=== PATIENT | male | born 1970 | race Caucasian/White ===

== ENCOUNTER 2016-02-12 09:10 | Inpatient (IN) | payer OTHER ==
[~2016-02-12] VITALS: Ht 180.3 cm; Wt 77.8 kg
[2016-02-12] VITALS (8 sets, daily range): BP systolic 143–166; BP diastolic 65–89
[2016-02-12 11:54] LABS: EOSINOPHIL (%) 0.9 % (0-5); EOSINOPHIL COUNT 0.1 K/uL (0-0.3); HEMATOCRIT 38.3 % (38.0-50.0); IMMATURE GRANULOCYTE (%) 0.2 % (0.0-0.7); IMMATURE GRANULOCYTE COUNT 0.1 K/uL; LYMPHOCYTE COUNT 1.1 K/uL (1.0-2.8); MCHC 35.5 G/DL (30.0-36.0); MCV 78.8 FL (86-99); MEAN PLAT.VOLUME 11.5 uM^3 (9.0-12.4); MONOCYTE (%) 7.1 % (3-12); MONOCYTE COUNT 0.4 K/uL (0-0.8); NEUTROPHIL (%) 71.7 % (45-76); PLATELET COUNT 175 K/uL (156-360); RBC DIS.WIDTH-CV 12.6 % (11.8-14.6); RBC DIS.WIDTH-SD 35.1 % (39-53); RED BLOOD COUNT 4.86 M/uL (4.00-5.50); WHITE BLOOD COUNT 5.6 K/uL (4.1-10.2)
[2016-02-12 12:03] LABS: PROTHROMBIN TIME 9.8 (9.2-11.2); PTT 24.8 (25-32)
[2016-02-12 12:07] LABS: CHLORIDE 87 mEq/L (99-109); POTASSIUM 5.1 mEq/L (3.7-5.4)
[2016-02-12 12:10] LABS: ANION GAP 11 MEQ/L (2-14)
[2016-02-12 12:13] LABS: GFR ESTIMATE (CALCULATED) 54 mL/min/; TROP-I INTERPRETATION NEGATIVE; TROPONIN-I 0.01 ng/mL (0.0-0.30); UREA NITROGEN (BUN) 22 mg/dL (9-23)
[2016-02-12 12:16] LABS: GLUCOSE 988 mg/dL (70-99)
[2016-02-12 12:17] LABS: SODIUM 119 mEq/L (136-147)
[2016-02-12 14:59] LABS: Estimated Average Glucose 479 mg/dL (70-123)
[2016-02-12 15:01] LABS: HEMOGLOBIN A1c (GLYCOHEMOGLOB) 18.3 % HGB (Below 5.7)
[2016-02-12 16:13] LABS: POINT-OF-CARE METER ID UU13113702; POINT-OF-CARE USER ID LABGLH01
[2016-02-12 16:46] LABS: POINT-OF-CARE METER ID UU13113702; POINT-OF-CARE USER ID LABGLH01
[2016-02-12 17:57] LABS: POINT-OF-CARE METER ID UU13113731
[2016-02-12 18:51] LABS: METH RESISTANT S AUREUS PCR POSITIVE (NEGATIVE)
[2016-02-12 18:52] LABS: PROBE CHECK PASS
[2016-02-12 18:54] LABS: POINT-OF-CARE METER ID UU13113731; POINT-OF-CARE USER ID 609231305
[2016-02-12 19:21] LABS: POINT-OF-CARE METER ID UU13113731
[2016-02-12 19:26] LABS: MAGNESIUM 2.4 mg/dL (1.3-2.7)
[2016-02-12 20:22] LABS: POINT-OF-CARE METER ID UU13113731; POINT-OF-CARE USER ID PHATLC
[2016-02-12 20:33] LABS: ALKALINE PHOSPHATASE 103 IU/L (3-129); ANION GAP 8 MEQ/L (2-14); CHLORIDE 99 MEQ/L (99-109); TOTAL BILIRUBIN 0.4 MG/DL (0.0-1.0); UREA NITROGEN (BUN) 18 mg/dL (9-23)
[2016-02-12 20:45] LABS: GFR ESTIMATE (CALCULATED) > 59 mL/min/; GLUCOSE 113 mg/dL (70-99); POTASSIUM 3.5 MEQ/L (3.7-5.4); SODIUM 135 MEQ/L (136-147)
[2016-02-12 22:07] LABS: POINT-OF-CARE METER ID UU13113731; POINT-OF-CARE USER ID PHATLC
[2016-02-12 22:27] LABS: UR CREATININE CONCENTRATION 18.8 MG/DL
[2016-02-13] VITALS (8 sets, daily range): BP systolic 136–164; BP diastolic 72–88
[2016-02-13 00:42] LABS: POTASSIUM 3.9 mEq/L (3.7-5.4); SODIUM 136 mEq/L (136-147)
[2016-02-13 00:45] LABS: ANION GAP 5 MEQ/L (2-14)
[2016-02-13 00:48] LABS: GFR ESTIMATE (CALCULATED) > 59 mL/min/
[2016-02-13 00:49] LABS: UREA NITROGEN (BUN) 15 mg/dL (9-23)
[2016-02-13 00:50] LABS: CREATINE KINASE 75 IU/L (1-294); TOTAL CK 75 IU/L (1-294)
[2016-02-13 00:53] LABS: TROP-I INTERPRETATION NEGATIVE; TROPONIN-I 0.01 ng/mL (0.0-0.30)
[2016-02-13 00:57] LABS: CK-MB 3.1 ng/mL (0.0-4.9)
[2016-02-13 00:59] LABS: CHLORIDE 105 mEq/L (99-109); GLUCOSE 266 mg/dL (70-99)
[2016-02-13 05:59] LABS: BASOPHIL COUNT 0.1 K/uL (0-0.1); EOSINOPHIL (%) 2.1 % (0-5); EOSINOPHIL COUNT 0.2 K/uL (0-0.3); HEMATOCRIT 38.4 % (38.0-50.0); IMMATURE GRANULOCYTE (%) 0.1 % (0.0-0.7); LYMPHOCYTE COUNT 2.9 K/uL (1.0-2.8); MCH 27.3 PG (29.0-34.0); MCHC 34.1 G/DL (30.0-36.0); MEAN PLAT.VOLUME 11.4 uM^3 (9.0-12.4); MONOCYTE (%) 8.2 % (3-12); MONOCYTE COUNT 0.6 K/uL (0-0.8); NEUTROPHIL (%) 48.1 % (45-76); NEUTROPHIL COUNT 3.4 K/uL (1.8-6.4); PLATELET COUNT 178 K/uL (156-360); RBC DIS.WIDTH-CV 12.7 % (11.8-14.6); RBC DIS.WIDTH-SD 36.8 % (39-53); WHITE BLOOD COUNT 7.1 K/uL (4.1-10.2)
[2016-02-13 06:05] LABS: ALKALINE PHOSPHATASE 87 IU/L (3-129); ANION GAP 11 MEQ/L (2-14); CHLORIDE 104 MEQ/L (99-109); GFR ESTIMATE (CALCULATED) > 59 mL/min/; GLUCOSE 219 mg/dL (70-99); MAGNESIUM 1.8 mg/dl (1.3-2.7); POTASSIUM 4.3 MEQ/L (3.7-5.4); SAMPLE HEMOLYSIS CHECK 0; SAMPLE ICTERIC CHECK 0; SAMPLE LIPEMIA CHECK 0; SODIUM 141 MEQ/L (136-147); UREA NITROGEN (BUN) 13 mg/dL (9-23)
[2016-02-13 06:07] LABS: TOTAL BILIRUBIN 0.5 MG/DL (0.0-1.0)
[2016-02-13 06:17] LABS: TROP-I INTERPRETATION NEGATIVE; TROPONIN-I 0.01 ng/mL (0.0-0.30)
[2016-02-13 06:19] LABS: CREATINE KINASE 56 IU/L (1-294); TOTAL CK 56 IU/L (1-294)
[2016-02-13 07:20] LABS: CK-MB 2.9 ng/mL (0.0-4.9)
[2016-02-13 08:14] LABS: POINT-OF-CARE METER ID UU14149396
[2016-02-13 10:59] LABS: POINT-OF-CARE METER ID UU13113702
[2016-02-13 12:17] LABS: POINT-OF-CARE METER ID UU14149396
[2016-02-13 12:29] LABS: TROP-I INTERPRETATION NEGATIVE; TROPONIN-I < 0.01 ng/mL (0.0-0.30)
[2016-02-13 12:47] LABS: CK-MB 2.6 ng/mL (0.0-4.9)
[2016-02-13 13:20] LABS: ANION GAP 6 MEQ/L (2-14); CHLORIDE 101 MEQ/L (99-109); CREATINE KINASE 57 IU/L (1-294); GFR ESTIMATE (CALCULATED) > 59 mL/min/; GLUCOSE 424 mg/dL (70-99); POTASSIUM 4.6 MEQ/L (3.7-5.4); SAMPLE HEMOLYSIS CHECK 0; SAMPLE ICTERIC CHECK 0; SAMPLE LIPEMIA CHECK 0; SODIUM 131 MEQ/L (136-147); TOTAL CK 57 IU/L (1-294); UREA NITROGEN (BUN) 12 mg/dL (9-23)
[2016-02-13 17:10] LABS: POINT-OF-CARE METER ID UU14149396
[2016-02-13 19:03] LABS: TROP-I INTERPRETATION NEGATIVE; TROPONIN-I < 0.01 ng/mL (0.0-0.30)
[2016-02-13 19:04] LABS: CK-MB 3.4 ng/mL (0.0-4.9)
[2016-02-13 19:27] LABS: ANION GAP 8 MEQ/L (2-14); CHLORIDE 99 MEQ/L (99-109); CREATINE KINASE 58 IU/L (1-294); GFR ESTIMATE (CALCULATED) > 59 mL/min/; GLUCOSE 342 mg/dL (70-99); SAMPLE HEMOLYSIS CHECK 0; SAMPLE ICTERIC CHECK 0; SAMPLE LIPEMIA CHECK 0; SODIUM 131 MEQ/L (136-147); TOTAL CK 58 IU/L (1-294); UREA NITROGEN (BUN) 13 mg/dL (9-23)
[2016-02-13 22:24] LABS: POINT-OF-CARE METER ID UU14149398
[2016-02-14 00:20] VITALS: BP 128/66
[2016-02-14 03:50] VITALS: BP 130/68
[2016-02-14 07:19] LABS: EOSINOPHIL (%) 2.1 % (0-5); EOSINOPHIL COUNT 0.1 K/uL (0-0.3); HEMATOCRIT 39.4 % (38.0-50.0); IMMATURE GRANULOCYTE (%) 0.2 % (0.0-0.7); LYMPHOCYTE COUNT 2.2 K/uL (1.0-2.8); MCH 28.2 PG (29.0-34.0); MCV 80.6 FL (86-99); MEAN PLAT.VOLUME 11.7 uM^3 (9.0-12.4); MONOCYTE COUNT 0.4 K/uL (0-0.8); NEUTROPHIL COUNT 2.4 K/uL (1.8-6.4); PLATELET COUNT 175 K/uL (156-360); RBC DIS.WIDTH-CV 12.6 % (11.8-14.6); RBC DIS.WIDTH-SD 36.6 % (39-53); RED BLOOD COUNT 4.89 M/uL (4.00-5.50); WHITE BLOOD COUNT 5.2 K/uL (4.1-10.2)
[2016-02-14 07:49] LABS: ALKALINE PHOSPHATASE 84 IU/L (3-129); ANION GAP 9 MEQ/L (2-14); CHLORIDE 102 MEQ/L (99-109); GFR ESTIMATE (CALCULATED) > 59 mL/min/; GLUCOSE 213 mg/dL (70-99); MAGNESIUM 1.7 mg/dl (1.3-2.7); POTASSIUM 3.6 MEQ/L (3.7-5.4); SAMPLE HEMOLYSIS CHECK 0; SAMPLE ICTERIC CHECK 0; SAMPLE LIPEMIA CHECK 0; SODIUM 136 MEQ/L (136-147); TOTAL BILIRUBIN 0.4 MG/DL (0.0-1.0); UREA NITROGEN (BUN) 11 mg/dL (9-23)
[2016-02-14 08:18] LABS: POINT-OF-CARE METER ID UU13113807
[2016-02-14 08:26] VITALS: BP 167/92
[2016-02-14 11:51] LABS: POINT-OF-CARE METER ID UU14149398
[2016-02-14 11:53] VITALS: BP 154/90
[2016-02-14 15:13] VITALS: BP 152/90
[2016-02-14 17:19] LABS: POINT-OF-CARE METER ID UU13113807
[2016-02-14 19:30] VITALS: BP 192/98
[2016-02-14 22:44] LABS: POINT-OF-CARE METER ID UU13113807
[2016-02-15 00:10] VITALS: BP 156/84
[2016-02-15 04:10] VITALS: BP 135/76
[2016-02-15 07:28] LABS: EOSINOPHIL (%) 2.2 % (0-5); EOSINOPHIL COUNT 0.1 K/uL (0-0.3); HEMATOCRIT 41.3 % (38.0-50.0); IMMATURE GRANULOCYTE (%) 0.2 % (0.0-0.7); LYMPHOCYTE COUNT 1.9 K/uL (1.0-2.8); MCH 28.2 PG (29.0-34.0); MCHC 34.9 G/DL (30.0-36.0); MCV 80.8 FL (86-99); MEAN PLAT.VOLUME 11.4 uM^3 (9.0-12.4); MONOCYTE (%) 9.3 % (3-12); MONOCYTE COUNT 0.5 K/uL (0-0.8); NEUTROPHIL (%) 49.5 % (45-76); NEUTROPHIL COUNT 2.5 K/uL (1.8-6.4); PLATELET COUNT 174 K/uL (156-360); RBC DIS.WIDTH-CV 12.6 % (11.8-14.6); RBC DIS.WIDTH-SD 36.8 % (39-53); RED BLOOD COUNT 5.11 M/uL (4.00-5.50)
[2016-02-15 07:55] LABS: ALKALINE PHOSPHATASE 83 IU/L (3-129); ANION GAP 8 MEQ/L (2-14); CHLORIDE 103 MEQ/L (99-109); GFR ESTIMATE (CALCULATED) > 59 mL/min/; GLUCOSE 161 mg/dL (70-99); MAGNESIUM 1.7 mg/dl (1.3-2.7); SAMPLE HEMOLYSIS CHECK 0; SAMPLE ICTERIC CHECK 0; SAMPLE LIPEMIA CHECK 0; SODIUM 138 MEQ/L (136-147); TOTAL BILIRUBIN 0.4 MG/DL (0.0-1.0); UREA NITROGEN (BUN) 13 mg/dL (9-23)
[2016-02-15 08:05] LABS: POINT-OF-CARE METER ID UU14149396
[2016-02-15 11:49] LABS: POINT-OF-CARE METER ID UU14149396
[2016-02-15 12:00] VITALS: BP 183/87
[2016-02-15] MEDS ORDERED: NICOTINE PATCH1 EAC2 TD (13:31)
[2016-02-15] MEDS ORDERED: LEVEMIR100 UNIT/2 SC (13:31)
[2016-02-15] MEDS ORDERED: NOVOLOG PE100 UNITS/ SC (13:31)
== END 2016-02-15 13:13 | DRG 638 ==
LOC: EME → EDBD 09:10 → 4WEST 16:45 → EDOF 16:45 → 4SOUTH 16:45 → 4WEST 17:25 → 4SOUTH 02-13 06:36
PROVIDERS: Emergency Medicine; Hospitalist; Internal Medicine; Internal Medicine Nephrology
DX: E11.01 Type 2 diabetes mellitus with hyperosmolarity with coma (principal); E87.1 Hypo-osmolality and hyponatremia; Z59.0 Homelessness; I10 Essential (primary) hypertension; R07.9 Chest pain, unspecified; H54.0 Blindness, both eyes; Z79.4 Long term (current) use of insulin; I25.10 Atherosclerotic heart disease of native coronary artery without angina pectoris
CPT/HCPCS: 71010; 80048; 80048 91; 80053; 81003; 82550; 82550 91; 82553; 82570; 82948; 83036; 83735; 83930; 83935; 84100; 84156; 84300; 84484; 84550; 85025; 85610; 85730; 87641; 93005; 99281; 99285; J1650; J1815; J7030; J7050

== ENCOUNTER 2016-03-16 16:26 | Emergency (ER) | payer OTHER ==
[~2016-03-16] VITALS: Ht 175.3 cm; Wt 83.6 kg
[~2016-03-16 16:26] MED LIST: LEVEMIR100 UNIT/2 SC; NICOTINE PATCH1 EAC2 TD; NOVOLOG PE100 UNITS/ SC
[2016-03-16 17:29] LABS: POINT-OF-CARE METER ID UU13113702
[2016-03-16 18:06] LABS: BASOPHIL COUNT 0.1 K/uL (0-0.1); EOSINOPHIL (%) 4.5 % (0-5); EOSINOPHIL COUNT 0.4 K/uL (0-0.3); HEMATOCRIT 37.5 % (38.0-50.0); IMMATURE GRANULOCYTE (%) 0.1 % (0.0-0.7); IMMATURE GRANULOCYTE COUNT 0.1 K/uL; LYMPHOCYTE COUNT 2.8 K/uL (1.0-2.8); MCH 27.8 PG (29.0-34.0); MCHC 36.5 G/DL (30.0-36.0); MCV 76.1 FL (86-99); MEAN PLAT.VOLUME 11.2 uM^3 (9.0-12.4); MONOCYTE (%) 14.3 % (3-12); MONOCYTE COUNT 1.2 K/uL (0-0.8); NEUTROPHIL (%) 45.7 % (45-76); NEUTROPHIL COUNT 3.8 K/uL (1.8-6.4); PLATELET COUNT 221 K/uL (156-360); RBC DIS.WIDTH-CV 13.3 % (11.8-14.6); RBC DIS.WIDTH-SD 35.3 % (39-53); RED BLOOD COUNT 4.93 M/uL (4.00-5.50); WHITE BLOOD COUNT 8.2 K/uL (4.1-10.2)
[2016-03-16 18:11] LABS: CHLORIDE 109 mEq/L (99-109); POTASSIUM 3.1 mEq/L (3.7-5.4); SODIUM 137 mEq/L (136-147)
[2016-03-16 18:13] LABS: GLUCOSE 259 mg/dL (70-99)
[2016-03-16 18:14] LABS: ANION GAP 10 MEQ/L (2-14)
[2016-03-16 18:15] LABS: TOTAL BILIRUBIN 0.5 mg/dL (0.0-1.0)
[2016-03-16 18:17] LABS: ALKALINE PHOSPHATASE 101 IU/L (3-129); GFR ESTIMATE (CALCULATED) > 59 mL/min/
[2016-03-16 18:18] LABS: UREA NITROGEN (BUN) 10 mg/dL (9-23)
[2016-03-16 19:05] LABS: ADD MIUA? NO; BILIRUBIN NEGATIVE; BLOOD NEGATIVE; COLOR YELLOW ((YELLOW)); GLUCOSE (STRIP) >=1000; KETONES NEGATIVE; LEUKOCYTES NEGATIVE; NITRITE NEGATIVE; PROTEIN (STRIP) TRACE; SPECIFIC GRAVITY 1.011 (1.000-1.030); UROBILINOGEN 0.2 MG/DL (0.2-1.0)
[2016-03-16 21:37] LABS: C DIFF TOXIN NEGATIVE (NEGATIVE)
[2016-03-16 21:38] LABS: PROBE CHECK PASS; SPECIMEN PROCESSING CONTROL PASS
[2016-03-16 22:24] VITALS: BP 171/98
== END 2016-03-16 22:42 | disposition home or self-care (01) ==
LOC: EME 16:26
PROVIDERS: Emergency Medicine
DX: R19.7 Diarrhea, unspecified (principal); E87.6 Hypokalemia; E11.9 Type 2 diabetes mellitus without complications; Z59.0 Homelessness; M25.572 Pain in left ankle and joints of left foot; H54.8 Legal blindness, as defined in USA; F17.200 Nicotine dependence, unspecified, uncomplicated
CPT/HCPCS: 80053; 81003; 82948; 85025; 87493; 99281; 99285; J7030

== ENCOUNTER 2016-04-21 22:53 | Inpatient (IN) | payer OTHER ==
[~2016-04-21] VITALS: Ht 180.3 cm; Wt 81.2 kg
[2016-04-21 23:21] LABS: EOSINOPHIL (%) 1.6 % (0-5); EOSINOPHIL COUNT 0.1 K/uL (0-0.3); HEMATOCRIT 41.2 % (38.0-50.0); IMMATURE GRANULOCYTE (%) 0.2 % (0.0-0.7); INSTRUMENT ABS NEUTROPHIL CT 2.6 K/uL; LYMPHOCYTE COUNT 1.7 K/uL (1.0-2.8); MCH 27.2 PG (29.0-34.0); MCHC 33.3 G/DL (30.0-36.0); MCV 81.9 FL (86-99); MEAN PLAT.VOLUME 11.5 uM^3 (9.0-12.4); MONOCYTE (%) 10.2 % (3-12); MONOCYTE COUNT 0.5 K/uL (0-0.8); NEUTROPHIL COUNT 2.6 K/uL (1.8-6.4); PLATELET COUNT 190 K/uL (156-360); RBC DIS.WIDTH-CV 12.9 % (11.8-14.6); RBC DIS.WIDTH-SD 38.2 % (39-53); RED BLOOD COUNT 5.03 M/uL (4.00-5.50); WHITE BLOOD COUNT 4.9 K/uL (4.1-10.2)
[2016-04-21 23:32] LABS: CHLORIDE 89 mEq/L (99-109); POTASSIUM 4.7 mEq/L (3.7-5.4); SODIUM 125 mEq/L (136-147)
[2016-04-21 23:34] LABS: ADD MIUA? NO; BILIRUBIN NEGATIVE; BLOOD NEGATIVE; COLOR COLORLESS ((YELLOW)); GLUCOSE (STRIP) >=500; KETONES NEGATIVE; LEUKOCYTES NEGATIVE; NITRITE NEGATIVE; PROTEIN (STRIP) NEGATIVE; SPECIFIC GRAVITY 1.021 (1.000-1.030); UCUL ADDED? NO; UROBILINOGEN 0.2 MG/DL (0.2-1.0)
[2016-04-21 23:36] LABS: ANION GAP 10 MEQ/L (2-14); TOTAL BILIRUBIN 0.3 mg/dL (0.0-1.0)
[2016-04-21 23:38] LABS: ALKALINE PHOSPHATASE 163 IU/L (3-129); GFR ESTIMATE (CALCULATED) 41 mL/min/
[2016-04-21 23:41] LABS: LIPASE 60 U/L (1.0-51.0)
[2016-04-21 23:48] LABS: GLUCOSE 898 mg/dL (70-99)
[2016-04-21 23:54] LABS: TROP-I INTERPRETATION NEGATIVE; TROPONIN-I 0.02 ng/mL (0.0-0.30)
[2016-04-22 00:42] LABS: UREA NITROGEN (BUN) 16 mg/dL (9-23)
[2016-04-22 01:52] LABS: POINT-OF-CARE METER ID UU13113702
[2016-04-22 07:22] LABS: Estimated Average Glucose 404 mg/dL (70-123)
[2016-04-22 07:34] LABS: HEMOGLOBIN A1c (GLYCOHEMOGLOB) 15.7 % HGB (Below 5.7)
[2016-04-22 07:59] VITALS: BP 159/85
[2016-04-22 08:11] LABS: ANION GAP 7 MEQ/L (2-14); CHLORIDE 100 MEQ/L (99-109); SAMPLE HEMOLYSIS CHECK 0; SAMPLE ICTERIC CHECK 0; SAMPLE LIPEMIA CHECK 0; UREA NITROGEN (BUN) 15 mg/dL (9-23)
[2016-04-22 08:16] LABS: GLUCOSE 290 mg/dL (70-99)
[2016-04-22 08:17] LABS: GFR ESTIMATE (CALCULATED) > 59 mL/min/; POTASSIUM 3.7 MEQ/L (3.7-5.4); SODIUM 135 MEQ/L (136-147)
[2016-04-22 08:49] LABS: TROP-I INTERPRETATION NEGATIVE; TROPONIN-I 0.02 ng/mL (0.0-0.30)
[2016-04-22 12:00] VITALS: BP 150/82
[2016-04-22 12:34] LABS: TROP-I INTERPRETATION NEGATIVE; TROPONIN-I 0.02 ng/mL (0.0-0.30)
[2016-04-22 15:14] VITALS: BP 148/82
[2016-04-22 20:12] VITALS: BP 143/72
[2016-04-22 23:04] LABS: POINT-OF-CARE METER ID UU14188625
[2016-04-23 00:06] VITALS: BP 143/62
[2016-04-23 03:40] LABS: METH RESISTANT S AUREUS PCR POSITIVE (NEGATIVE)
[2016-04-23 04:11] LABS: PROBE CHECK PASS
[2016-04-23 04:33] VITALS: BP 142/73
[2016-04-23 08:18] LABS: POINT-OF-CARE METER ID UU14188625
[2016-04-23 08:47] VITALS: BP 110/78
[2016-04-23 12:57] LABS: POINT-OF-CARE METER ID UU14188625
[2016-04-23 18:42] VITALS: BP 115/75
[2016-04-23 20:00] VITALS: BP 124/74
[2016-04-23 23:35] VITALS: BP 121/71
[2016-04-24 03:32] VITALS: BP 124/73
[2016-04-24 08:21] VITALS: BP 172/87
[2016-04-24 09:16] LABS: ANION GAP 7 MEQ/L (2-14); CHLORIDE 102 MEQ/L (99-109); POTASSIUM 3.8 MEQ/L (3.7-5.4); SAMPLE HEMOLYSIS CHECK 0; SAMPLE ICTERIC CHECK 0; SAMPLE LIPEMIA CHECK 0; SODIUM 138 MEQ/L (136-147)
[2016-04-24 09:21] LABS: GFR ESTIMATE (CALCULATED) > 59 mL/min/; GLUCOSE 191 mg/dL (70-99); UREA NITROGEN (BUN) 11 mg/dL (9-23)
[2016-04-24 11:09] VITALS: BP 170/84
[2016-04-24 15:27] VITALS: BP 168/80
[2016-04-24 19:37] VITALS: BP 164/74
[2016-04-25 00:40] VITALS: BP 156/68
[2016-04-25 03:30] VITALS: BP 149/79
[2016-04-25 07:18] VITALS: BP 133/71
[2016-04-25 08:04] LABS: POINT-OF-CARE METER ID UU14188625
[2016-04-25 08:26] LABS: POINT-OF-CARE METER ID UU14188625
[2016-04-25 11:02] VITALS: BP 129/68
[2016-04-25 11:09] LABS: POINT-OF-CARE METER ID UU14174225
[2016-04-25 15:05] VITALS: BP 138/75
[2016-04-25 20:00] VITALS: BP 152/80
[2016-04-26] VITALS: BP 144/77
[2016-04-26 08:08] VITALS: BP 136/74
[2016-04-26 12:22] LABS: POINT-OF-CARE METER ID UU14174225
[2016-04-26 16:07] VITALS: BP 142/74
[2016-04-26 16:37] LABS: POINT-OF-CARE METER ID UU14174225
[2016-04-26 21:53] LABS: POINT-OF-CARE METER ID UU14174225
[2016-04-27] VITALS: BP 135/82
[2016-04-27 08:00] VITALS: BP 147/92
[2016-04-27 08:20] LABS: POINT-OF-CARE METER ID UU14174225
[2016-04-27 12:14] LABS: POINT-OF-CARE METER ID UU14174225
[2016-04-27 15:46] VITALS: BP 143/78
[2016-04-28 00:11] VITALS: BP 149/81
[2016-04-28 08:32] VITALS: BP 137/83
[2016-04-28 16:02] VITALS: BP 138/82
[2016-04-28 17:30] LABS: POINT-OF-CARE USER ID STWAMT
[2016-04-28 23:54] VITALS: BP 167/89
[2016-04-29 07:28] VITALS: BP 134/66
[2016-04-29 11:12] LABS: POINT-OF-CARE METER ID UU14188625
[2016-04-29 15:04] VITALS: BP 127/69
[2016-04-30] VITALS: BP 166/82
[2016-04-30 07:30] VITALS: BP 140/82
[2016-04-30 20:38] VITALS: BP 158/85
[2016-04-30 21:14] LABS: POINT-OF-CARE METER ID UU14174225
[2016-05-01] VITALS: BP 154/81
[2016-05-01 08:00] VITALS: BP 173/94
[2016-05-01] MEDS ORDERED: NICOTINE PATCH1 EAC1 TD (15:25)
[2016-05-01] MEDS ORDERED: LIDOCAINE700 MG TD (15:25)
[2016-05-01 15:43] VITALS: BP 153/86
[2016-05-01 18:03] LABS: POINT-OF-CARE USER ID STWAMT
[2016-05-02 00:23] VITALS: BP 133/71
[2016-05-02 07:51] LABS: POINT-OF-CARE METER ID UU14188625
[2016-05-02] MEDS ORDERED: LEVEMIR100 UNIT/2 SC (08:31)
[2016-05-02] MEDS ORDERED: MOTRIN600 MG PO (08:31)
[2016-05-02] MEDS ORDERED: ASPIR-LOW81 MG PO (08:31)
[2016-05-02] MEDS ORDERED: POLYETHYLENE GL17 GM PO (08:31)
[2016-05-02] MEDS ORDERED: NOVOLOG PE100 UNITS/ SC (08:31)
[2016-05-02 08:40] VITALS: BP 164/73
[2016-05-02] MEDS ORDERED: LEVEMIR FL100 UNIT/1 SC (09:13)
== END 2016-05-02 14:15 | disposition home health service (06) | DRG 639 ==
LOC: EME → EDBD 22:53 → EME 22:53 → EDOF 04-22 01:16 → 5SOUTH 04-22 01:16
PROVIDERS: Emergency Medicine; Family Medicine; Hospitalist; Internal Medicine; Nurse Practitioner Adult Health
DX: E11.00 Type 2 diabetes mellitus with hyperosmolarity without nonketotic hyperglycemic-hyperosmolar coma (NKHHC) (principal); I10 Essential (primary) hypertension; H54.0 Blindness, both eyes; Z91.19 Patient's noncompliance with other medical treatment and regimen; I25.10 Atherosclerotic heart disease of native coronary artery without angina pectoris; E11.319 Type 2 diabetes mellitus with unspecified diabetic retinopathy without macular edema; R07.81 Pleurodynia; H40.9 Unspecified glaucoma; J20.9 Acute bronchitis, unspecified; E11.42 Type 2 diabetes mellitus with diabetic polyneuropathy
CPT/HCPCS: 71010; 73610; 78452; 80048; 80053; 80069; 81003; 82010; 82800; 82948; 83036; 83690; 84484; 84681 90; 85025; 87641; 93005; 93017; 99281; 99285; A9500; J1650; J1815; J1885; J2270; J2405; J2785; J7030

== ENCOUNTER 2016-08-05 21:23 | Emergency (ER) | payer OTHER ==
[~2016-08-05] VITALS: Ht 182.9 cm; Wt 86.1 kg
[~2016-08-05 21:23] MED LIST changes: +ASPIR-LOW81 MG PO; +LEVEMIR FL100 UNIT/1 SC; +LIDOCAINE700 MG TD; +MOTRIN600 MG PO; +NICOTINE PATCH1 EAC1 TD; +POLYETHYLENE GL17 GM PO
[2016-08-05 23:21] LABS: BASOPHIL COUNT 0.1 K/uL (0-0.1); EOSINOPHIL (%) 2.6 % (0-5); EOSINOPHIL COUNT 0.2 K/uL (0-0.3); HEMATOCRIT 32.4 % (38.0-50.0); IMMATURE GRANULOCYTE (%) 0.5 % (0.0-0.7); INSTRUMENT ABS NEUTROPHIL CT 4.7 K/uL; LYMPHOCYTE COUNT 2.3 K/uL (1.0-2.8); MCH 26.3 PG (29.0-34.0); MCHC 33.6 G/DL (30.0-36.0); MCV 78.1 FL (86-99); MEAN PLAT.VOLUME 10.7 uM^3 (9.0-12.4); MONOCYTE (%) 10.3 % (3-12); MONOCYTE COUNT 0.8 K/uL (0-0.8); NEUTROPHIL (%) 57.3 % (45-76); NEUTROPHIL COUNT 4.7 K/uL (1.8-6.4); PLATELET COUNT 245 K/uL (156-360); RBC DIS.WIDTH-CV 13.7 % (11.8-14.6); RBC DIS.WIDTH-SD 38.3 % (39-53); RED BLOOD COUNT 4.15 M/uL (4.00-5.50); WHITE BLOOD COUNT 8.2 K/uL (4.1-10.2)
[2016-08-05 23:30] LABS: CHLORIDE 99 mEq/L (99-109)
[2016-08-05 23:31] LABS: POTASSIUM 4.1 mEq/L (3.7-5.4); SODIUM 132 mEq/L (136-147)
[2016-08-05 23:34] LABS: ANION GAP 12 MEQ/L (2-14)
[2016-08-05 23:35] LABS: TOTAL BILIRUBIN 0.5 mg/dL (0.0-1.0)
[2016-08-05 23:36] LABS: SERUM ETHYL ALCOHOL < 10 mg/dL
[2016-08-05 23:37] LABS: ALKALINE PHOSPHATASE 91 IU/L (3-129); GFR ESTIMATE (CALCULATED) > 59 mL/min/
[2016-08-05 23:39] LABS: UREA NITROGEN (BUN) 20 mg/dL (9-23)
[2016-08-05 23:40] LABS: SALICYLATE < 5.0 MG/DL (15-30)
[2016-08-05 23:54] LABS: GLUCOSE 457 mg/dL (70-99)
[2016-08-06 03:16] LABS: POINT-OF-CARE METER ID UU13113702
[2016-08-06 06:57] LABS: Estimated Average Glucose 298 mg/dL (70-123)
[2016-08-06 07:13] LABS: POINT-OF-CARE METER ID UU13113702
[2016-08-06 07:38] LABS: ADD MEDTOX COMMENT Y; AMPHETAMINE NEGATIVE (500 ng/mL); BARBITURATES NEGATIVE (200 ng/mL); BENZODIAZEPINES NEGATIVE (150 ng/mL); COCAINE PRESUMPTIVE POSITIVE (150 ng/mL); INTERNAL CONTROLS VALID? YES; METHADONE NEGATIVE (200 ng/mL); METHAMPHETAMINE NEGATIVE (500 ng/mL); OPIATES (MORPHINE) NEGATIVE (100 ng/mL); OXYCODONE NEGATIVE (100 ng/mL); PHENCYCLIDINE NEGATIVE (25 ng/mL); PROPOXYPHENE NEGATIVE (300 ng/mL); THC CANNABINOIDS NEGATIVE (50 ng/mL); TRICYCLIC ANTIDEPRESSANTS NEGATIVE (300 ng/mL)
[2016-08-06 08:32] VITALS: BP 149/97
== END 2016-08-06 08:57 | disposition home or self-care (01) ==
LOC: EME 21:23
PROVIDERS: Emergency Medicine
DX: E11.65 Type 2 diabetes mellitus with hyperglycemia (principal); Z79.4 Long term (current) use of insulin; Z79.82 Long term (current) use of aspirin; Z87.891 Personal history of nicotine dependence; F10.10 Alcohol abuse, uncomplicated; I10 Essential (primary) hypertension; H54.0 Blindness, both eyes; F31.9 Bipolar disorder, unspecified; F14.10 Cocaine abuse, uncomplicated; Z59.0 Homelessness; Z87.820 Personal history of traumatic brain injury
CPT/HCPCS: 80053; 82948; 83036; 84999; 85025; 99281; 99285; G0480; J7030

== ENCOUNTER 2016-08-24 18:50 | Inpatient (IN) | payer OTHER ==
[~2016-08-24] VITALS: Ht 177.8 cm; Wt 68.0 kg
[2016-08-24 19:26] LABS: BASE EXCESS -25.1 mEq/L (-3 to +3); BICARBONATE 6.2 mEq/L (22-26); CARBOXY HGB 1.5 % (0-5); METHEMOGLOBIN 1.7 % (0-1.5); PCO2 31 mm Hg (35-45); PO2 520 mm Hg (80-100); pH 6.91 (7.35-7.45)
[2016-08-24 19:27] LABS: COMMENTS - BLOOD GASES C+A+; DEVICE 980 VENT; FI02 100 %; MECHANICAL RATE 16 resp/min; MODE AC; PEEP 5 CM/H20; SITE LR; TIDAL VOLUME 500 ML; TOTAL RESP RATE 27 resp/min
[2016-08-24 19:38] LABS: HEMATOCRIT 32.2 % (38.0-50.0); MCH 25.8 PG (29.0-34.0); MCHC 27.6 G/DL (30.0-36.0); MEAN PLAT.VOLUME 10.2 uM^3 (9.0-12.4); NRBC (%) 0.2 /100 WBC (0-0); RBC DIS.WIDTH-CV 18.3 % (11.8-14.6); RBC DIS.WIDTH-SD 62.6 % (39-53); RED BLOOD COUNT 3.45 M/uL (4.00-5.50)
[2016-08-24 19:39] LABS: MCV 93.3 FL (86-99); PLATELET COUNT 399 K/uL (156-360)
[2016-08-24 19:41] LABS: INTER. NORMALIZED RATIO 2.3; PROTHROMBIN TIME 24.2 (9.2-11.2); PTT 58.7 (25-32)
[2016-08-24 19:48] LABS: CHLORIDE 95 mEq/L (99-109); SODIUM 128 mEq/L (136-147)
[2016-08-24 19:49] LABS: MAGNESIUM 3.2 mg/dL (1.3-2.7)
[2016-08-24 19:52] LABS: ANION GAP 26 MEQ/L (2-14)
[2016-08-24 19:53] LABS: SERUM ETHYL ALCOHOL < 10 mg/dL
[2016-08-24 19:54] LABS: GFR ESTIMATE (CALCULATED) 15 mL/min/
[2016-08-24 19:55] LABS: UREA NITROGEN (BUN) 100 mg/dL (9-23)
[2016-08-24 20:06] LABS: BASE EXCESS -23.4 mEq/L (-3 to +3); BICARBONATE 6.9 mEq/L (22-26); CARBOXY HGB 1.4 % (0-5); METHEMOGLOBIN 1.5 % (0-1.5); PCO2 30 mm Hg (35-45)
[2016-08-24 20:07] LABS: COMMENTS - BLOOD GASES C+A+; DEVICE 980 VENT; FI02 100 %; MECHANICAL RATE 30 resp/min; MODE AC; PEEP 5 CM/H20; PO2 354 mm Hg (80-100); SITE LR; TIDAL VOLUME 500 ML; TOTAL RESP RATE 30 resp/min; pH 6.97 (7.35-7.45)
[2016-08-24 20:10] LABS: TROP-I INTERPRETATION POSITIVE; TROPONIN-I 9.73 ng/mL (0.0-0.30)
[2016-08-24 20:20] LABS: GLUCOSE 895 mg/dL (70-99); POTASSIUM 7.6 mEq/L (3.7-5.4)
[2016-08-24 20:24] LABS: ABS NEUTROPHIL COUNT 34.4; ANISOCYTOSIS 2+; ATYPICAL LYMPHOCYTE 0.4 %; BASOPHILS 3.5 %; EOSINOPHIL ABS CT 0; INSTRUMENT ABS NEUTROPHIL CT 31.6 K/uL; MACROCYTES 2+; METAMYELOCYTES 2.2 %; MYELOCYTES 1.3 %; NUCLEATED RBC'S 0.9; PLAT.SUFFICIENCY ADEQUATE; POIKILOCYTOSIS 3+; SEG.NEUTROPHILS 84.1 % (46.0-76.0); SMUDGE CELLS 3.5
[2016-08-24 22:53] LABS: CREATININE 3.7 mg/dL (0.6-1.3); POTASSIUM 5.7 mEq/L (3.7-5.4)
[2016-08-24 23:30] VITALS: BP 101/39
[2016-08-24 23:50] VITALS: BP 101/39
[2016-08-25] VITALS (23 sets, daily range): BP systolic 59–133; BP diastolic 27–91
[2016-08-25 00:38] LABS: BASE EXCESS -18.2 mEq/L (-3 to +3); BICARBONATE 9.6 mEq/L (22-26); CARBOXY HGB 1.7 % (0-5); COMMENTS - BLOOD GASES C+A+; DEVICE VENTILATOR; FI02 60 %; MECHANICAL RATE 30 resp/min; MODE AC; PCO2 29 mm Hg (35-45); PEEP 5 CM/H20; PO2 74 mm Hg (80-100); SITE LB; TIDAL VOLUME 500 ML; TOTAL RESP RATE 30 resp/min
[2016-08-25 00:39] LABS: pH 7.13 (7.35-7.45)
[2016-08-25 01:03] LABS: CHLORIDE 102 mEq/L (99-109); SODIUM 131 mEq/L (136-147)
[2016-08-25 01:07] LABS: ANION GAP 20 MEQ/L (2-14); TOTAL BILIRUBIN 0.5 mg/dL (0.0-1.0)
[2016-08-25 01:09] LABS: ALKALINE PHOSPHATASE 437 IU/L (3-129)
[2016-08-25 01:11] LABS: DIRECT BILIRUBIN 0.4 mg/dL (0.0-0.3); UREA NITROGEN (BUN) 92 mg/dL (9-23)
[2016-08-25 01:29] LABS: AMYLASE 727 IU/L (1-118); GFR ESTIMATE (CALCULATED) 18 mL/min/; GLUCOSE 710 mg/dL (70-99); LIPASE 2459 U/L (1.0-51.0); POTASSIUM 5.2 mEq/L (3.7-5.4)
[2016-08-25 01:47] LABS: METH RESISTANT S AUREUS PCR POSITIVE (NEGATIVE)
[2016-08-25 01:55] LABS: PROBE CHECK PASS
[2016-08-25 02:25] LABS: HEMATOCRIT 23.2 % (38.0-50.0); MCH 25.7 PG (29.0-34.0); MCHC 31.9 G/DL (30.0-36.0); MCV 80.6 FL (86-99); MEAN PLAT.VOLUME 9.9 uM^3 (9.0-12.4); NRBC (%) 0.3 /100 WBC (0-0); PLATELET COUNT 196 K/uL (156-360); RBC DIS.WIDTH-CV 17.3 % (11.8-14.6); RBC DIS.WIDTH-SD 51.1 % (39-53); RED BLOOD COUNT 2.88 M/uL (4.00-5.50)
[2016-08-25 03:47] LABS: ADD MIUA? YES; BILIRUBIN NEGATIVE; BLOOD LARGE; COLOR AMBER ((YELLOW)); GLUCOSE (STRIP) >=500; KETONES NEGATIVE; LEUKOCYTES MODERATE; NITRITE NEGATIVE; PROTEIN (STRIP) 100; SPECIFIC GRAVITY 1.014 (1.000-1.030)
[2016-08-25 04:02] LABS: RED BLOOD CELLS TNTC /HPF (0-5); WHITE BLOOD CELLS TNTC /HPF (0-5)
[2016-08-25 04:03] LABS: CRYSTALS PRESENT; UCUL ADDED? YES; URINE COMMENT FIELD OBSCURED BY RB
[2016-08-25 04:04] LABS: AMORPHOUS URATES CRYSTALS FEW
[2016-08-25 04:44] LABS: CHLORIDE 108 mEq/L (99-109); POTASSIUM 4.3 mEq/L (3.7-5.4); SODIUM 133 mEq/L (136-147)
[2016-08-25 04:47] LABS: ANION GAP 15 MEQ/L (2-14)
[2016-08-25 04:50] LABS: UREA NITROGEN (BUN) 85 mg/dL (9-23)
[2016-08-25 04:53] LABS: GFR ESTIMATE (CALCULATED) 23 mL/min/; GLUCOSE 565 mg/dL (70-99)
[2016-08-25 05:03] LABS: BICARBONATE 10.5 mEq/L (22-26); CARBOXY HGB 1.3 % (0-5); METHEMOGLOBIN 1.4 % (0-1.5)
[2016-08-25 05:04] LABS: COMMENTS - BLOOD GASES C+A+; DEVICE VENTILATOR; FI02 60 %; MECHANICAL RATE 30 resp/min; MODE AC; PCO2 20 mm Hg (35-45); PEEP 5 CM/H20; PO2 211 mm Hg (80-100); SITE RF A LINE; TIDAL VOLUME 600 ML; TOTAL RESP RATE 30 resp/min; pH 7.33 (7.35-7.45)
[2016-08-25 05:48] LABS: HEMATOCRIT 21.3 % (38.0-50.0); MCH 26.8 PG (29.0-34.0); MCHC 34.3 G/DL (30.0-36.0); MCV 78.3 FL (86-99); MEAN PLAT.VOLUME 9.7 uM^3 (9.0-12.4); NRBC (%) 0.3 /100 WBC (0-0); PLATELET COUNT 159 K/uL (156-360); RBC DIS.WIDTH-CV 16.7 % (11.8-14.6); RBC DIS.WIDTH-SD 47.7 % (39-53); RED BLOOD COUNT 2.72 M/uL (4.00-5.50); WHITE BLOOD COUNT 10.4 K/uL (4.1-10.2)
[2016-08-25 05:58] LABS: INTER. NORMALIZED RATIO 1.9; PROTHROMBIN TIME 19.6 (9.2-11.2); PTT 44.8 (25-32)
[2016-08-25 06:37] LABS: TROP-I INTERPRETATION POSITIVE; TROPONIN-I 16.43 ng/mL (0.0-0.30)
[2016-08-25 07:07] LABS: ALKALINE PHOSPHATASE 294 IU/L (3-129); ANION GAP 17 MEQ/L (2-14); CHLORIDE 106 MEQ/L (99-109); GFR ESTIMATE (CALCULATED) 24 mL/min/; GLUCOSE 533 mg/dL (70-99); POTASSIUM 4.3 MEQ/L (3.7-5.4); SAMPLE HEMOLYSIS CHECK 0; SAMPLE ICTERIC CHECK 0; SAMPLE LIPEMIA CHECK 0; SODIUM 133 MEQ/L (136-147); TOTAL BILIRUBIN 0.8 MG/DL (0.0-1.0); UREA NITROGEN (BUN) 83 mg/dL (9-23)
[2016-08-25 07:35] LABS: Estimated Average Glucose 306 mg/dL (70-123); HEMOGLOBIN A1c (GLYCOHEMOGLOB) 12.3 % HGB (Below 5.7)
[2016-08-25 08:45] LABS: AMPHETAMINES QUANT VALUE 0 NG/ML; BARBITUATES QUANT VALUE 0 NG/ML; BENZODIAZEPINES QUANT VALUE 0 NG/ML; BENZODIAZEPINES, URINE SCREEN Negative (200 ng/mL); MARIJUANA QUANT VALUE 0 NG/ML; OPIATES QUANTITATIVE VALUE 0 NG/ML; PHENCYCLIDINE QUANT VALUE 0 NG/ML
[2016-08-25 09:54] LABS: ANION GAP 16 MEQ/L (2-14); CHLORIDE 107 MEQ/L (99-109); GFR ESTIMATE (CALCULATED) 26 mL/min/; MAGNESIUM 1.9 mg/dl (1.3-2.7); POTASSIUM 4.3 MEQ/L (3.7-5.4); SAMPLE HEMOLYSIS CHECK 0; SAMPLE ICTERIC CHECK 0; SAMPLE LIPEMIA CHECK 0; SODIUM 134 MEQ/L (136-147); UREA NITROGEN (BUN) 82 mg/dL (9-23)
[2016-08-25 09:57] LABS: GLUCOSE 449 mg/dL (70-99)
[2016-08-25 10:11] LABS: AMPHETAMINES QUANT VALUE 0 NG/ML; BARBITUATES QUANT VALUE 0 NG/ML; BENZODIAZEPINES QUANT VALUE 0 NG/ML; BENZODIAZEPINES, URINE SCREEN Negative (200 ng/mL); MARIJUANA QUANT VALUE 0 NG/ML; OPIATES QUANTITATIVE VALUE 0 NG/ML; PHENCYCLIDINE QUANT VALUE 0 NG/ML
[2016-08-25 13:02] LABS: TROP-I INTERPRETATION POSITIVE; TROPONIN-I 16.53 ng/mL (0.0-0.30)
[2016-08-25 13:13] LABS: ANION GAP 15 MEQ/L (2-14); CHLORIDE 108 MEQ/L (99-109); GFR ESTIMATE (CALCULATED) 29 mL/min/; GLUCOSE 369 mg/dL (70-99); SAMPLE HEMOLYSIS CHECK 0; SAMPLE ICTERIC CHECK 0; SAMPLE LIPEMIA CHECK 0; SODIUM 134 MEQ/L (136-147); UREA NITROGEN (BUN) 77 mg/dL (9-23)
[2016-08-25 13:16] LABS: POINT-OF-CARE METER ID UU14208751
[2016-08-25 14:14] LABS: POINT-OF-CARE METER ID UU14208751
[2016-08-25 15:29] LABS: BASE EXCESS -11.8 mEq/L (-3 to +3); BICARBONATE 11.8 mEq/L (22-26); CARBOXY HGB 1.6 % (0-5); METHEMOGLOBIN 1.7 % (0-1.5); PCO2 19 mm Hg (35-45)
[2016-08-25 15:30] LABS: COMMENTS - BLOOD GASES C+; DEVICE VENT; FI02 40 %; MECHANICAL RATE 30 resp/min; MODE AC; PEEP 5 CM/H20; PO2 97 mm Hg (80-100); SITE ALINE; TIDAL VOLUME 600 ML; TOTAL RESP RATE 30 resp/min
[2016-08-25 15:35] LABS: POINT-OF-CARE METER ID UU14208751
[2016-08-25 16:23] LABS: POINT-OF-CARE METER ID UU14208751
[2016-08-25 16:24] LABS: ANION GAP 14 MEQ/L (2-14); CHLORIDE 109 MEQ/L (99-109); GFR ESTIMATE (CALCULATED) 29 mL/min/; GLUCOSE 314 mg/dL (70-99); POTASSIUM 3.7 MEQ/L (3.7-5.4); SAMPLE HEMOLYSIS CHECK 0; SAMPLE ICTERIC CHECK 0; SAMPLE LIPEMIA CHECK 0; SODIUM 135 MEQ/L (136-147); UREA NITROGEN (BUN) 77 mg/dL (9-23)
[2016-08-25 17:40] LABS: POINT-OF-CARE METER ID UU14208751
[2016-08-25 18:14] LABS: HEMATOCRIT 20.8 % (38.0-50.0); MCH 26.4 PG (29.0-34.0); MCHC 34.1 G/DL (30.0-36.0); MCV 77.3 FL (86-99); NRBC (%) 0.2 /100 WBC (0-0); PLATELET COUNT 133 K/uL (156-360); RBC DIS.WIDTH-CV 16.6 % (11.8-14.6); RBC DIS.WIDTH-SD 46.8 % (39-53); RED BLOOD COUNT 2.69 M/uL (4.00-5.50); WHITE BLOOD COUNT 16.2 K/uL (4.1-10.2)
[2016-08-25 18:15] LABS: POINT-OF-CARE METER ID UU14208751
[2016-08-25 18:21] LABS: ALKALINE PHOSPHATASE 229 IU/L (3-129); ANION GAP 14 MEQ/L (2-14); CHLORIDE 110 MEQ/L (99-109); GFR ESTIMATE (CALCULATED) 29 mL/min/; GLUCOSE 276 mg/dL (70-99); POTASSIUM 3.9 MEQ/L (3.7-5.4); SAMPLE HEMOLYSIS CHECK 0; SAMPLE ICTERIC CHECK 0; SAMPLE LIPEMIA CHECK 0; SODIUM 136 MEQ/L (136-147); UREA NITROGEN (BUN) 77 mg/dL (9-23)
[2016-08-25 18:25] LABS: TOTAL BILIRUBIN 1.2 MG/DL (0.0-1.0)
[2016-08-25 18:27] LABS: BASE EXCESS -13.2 mEq/L (-3 to +3); BICARBONATE 12.6 mEq/L (22-26); METHEMOGLOBIN 1.7 % (0-1.5); PCO2 28 mm Hg (35-45); PO2 72 mm Hg (80-100); SITE ALINE; pH 7.26 (7.35-7.45)
[2016-08-25 18:29] LABS: COMMENTS - BLOOD GASES C+; DEVICE VENT; FI02 40 %; MECHANICAL RATE 20 resp/min; MODE AC; TOTAL RESP RATE 24 resp/min
[2016-08-25 18:30] LABS: PEEP 5 CM/H20; TIDAL VOLUME 550 ML
[2016-08-25 18:48] LABS: TROP-I INTERPRETATION POSITIVE; TROPONIN-I 14.73 ng/mL (0.0-0.30)
[2016-08-25 19:34] LABS: POINT-OF-CARE METER ID UU14208751
[2016-08-25 20:43] LABS: POINT-OF-CARE METER ID UU14208751
[2016-08-25 21:43] LABS: POINT-OF-CARE METER ID UU14208751
[2016-08-25 22:29] LABS: POINT-OF-CARE METER ID UU14208751
[2016-08-25 23:25] LABS: POINT-OF-CARE METER ID UU14208751
[2016-08-26] VITALS (9 sets, daily range): BP systolic 0–168; BP diastolic 0–86
[2016-08-26 00:20] LABS: POINT-OF-CARE METER ID UU14208751
[2016-08-26 00:39] LABS: HEMATOCRIT 25.8 % (38.0-50.0); MCH 27.5 PG (29.0-34.0); MCHC 34.5 G/DL (30.0-36.0); MCV 79.6 FL (86-99); MEAN PLAT.VOLUME 9.8 uM^3 (9.0-12.4); NRBC (%) 0.2 /100 WBC (0-0); PLATELET COUNT 122 K/uL (156-360); RBC DIS.WIDTH-CV 18.4 % (11.8-14.6); RBC DIS.WIDTH-SD 53.3 % (39-53); WHITE BLOOD COUNT 21.3 K/uL (4.1-10.2)
[2016-08-26 00:43] LABS: RED BLOOD COUNT 3.24 M/uL (4.00-5.50)
[2016-08-26 00:53] LABS: CHLORIDE 115 mEq/L (99-109); POTASSIUM 4.1 mEq/L (3.7-5.4); SODIUM 140 mEq/L (136-147)
[2016-08-26 00:54] LABS: GLUCOSE 172 mg/dL (70-99)
[2016-08-26 00:56] LABS: ANION GAP 13 MEQ/L (2-14)
[2016-08-26 00:58] LABS: GFR ESTIMATE (CALCULATED) 29 mL/min/
[2016-08-26 00:59] LABS: UREA NITROGEN (BUN) 73 mg/dL (9-23)
[2016-08-26 01:32] LABS: POINT-OF-CARE METER ID UU13113731
[2016-08-26 02:27] LABS: POINT-OF-CARE METER ID UU13113731
[2016-08-26 03:26] LABS: POINT-OF-CARE METER ID UU13113731
[2016-08-26 04:24] LABS: POINT-OF-CARE METER ID UU13113731
[2016-08-26 04:48] LABS: POINT-OF-CARE METER ID UU13113731
[2016-08-26 05:08] LABS: CHLORIDE 115 mEq/L (99-109); SODIUM 139 mEq/L (136-147)
[2016-08-26 05:12] LABS: ANION GAP 12 MEQ/L (2-14)
[2016-08-26 05:15] LABS: GFR ESTIMATE (CALCULATED) 30 mL/min/
[2016-08-26 05:16] LABS: UREA NITROGEN (BUN) 69 mg/dL (9-23)
[2016-08-26 05:17] LABS: ALKALINE PHOSPHATASE 274 IU/L (3-129); GLUCOSE 112 mg/dL (70-99); MAGNESIUM 1.6 mg/dL (1.3-2.7); TOTAL BILIRUBIN 1.3 mg/dL (0.0-1.0)
[2016-08-26 05:41] LABS: POINT-OF-CARE METER ID UU13113731
[2016-08-26 05:51] LABS: HEMATOCRIT 26.4 % (38.0-50.0); MCHC 34.1 G/DL (30.0-36.0); MCV 79.3 FL (86-99); MEAN PLAT.VOLUME 9.9 uM^3 (9.0-12.4); NRBC (%) 0.2 /100 WBC (0-0); PLATELET COUNT 118 K/uL (156-360); RED BLOOD COUNT 3.33 M/uL (4.00-5.50); WHITE BLOOD COUNT 20.9 K/uL (4.1-10.2)
[2016-08-26 05:54] LABS: BASOPHIL COUNT 0.1 K/uL (0-0.1); EOSINOPHIL (%) 0 % (0-5); IMMATURE GRANULOCYTE (%) 8.8 % (0.0-0.7); IMMATURE GRANULOCYTE COUNT 1.8 K/uL; INSTRUMENT ABS NEUTROPHIL CT 17.6 K/uL; LYMPHOCYTE COUNT 0.6 K/uL (1.0-2.8); MONOCYTE (%) 3.2 % (3-12); MONOCYTE COUNT 0.7 K/uL (0-0.8); NEUTROPHIL (%) 84.4 % (45-76); NEUTROPHIL COUNT 17.6 K/uL (1.8-6.4)
[2016-08-26 05:58] LABS: BAND NEUTROPHILS 5.4 % (0-8.0); SEG.NEUTROPHILS 71.4 % (46.0-76.0)
[2016-08-26 05:59] LABS: LYMPHOCYTES 4.5 % (15.0-45.0); METAMYELOCYTES 7.1 %
[2016-08-26 06:00] LABS: MYELOCYTES 2.7 %
[2016-08-26 06:06] LABS: VANCOMYCIN, TROUGH 18.3 MCG/ML (10-20)
[2016-08-26 06:58] LABS: POINT-OF-CARE METER ID UU13113731
[2016-08-26 07:58] LABS: POINT-OF-CARE METER ID UU13113731
[2016-08-26 08:44] LABS: INTER. NORMALIZED RATIO 1.8; PROTHROMBIN TIME 18.5 (9.2-11.2); PTT 49.9 (25-32)
[2016-08-26 09:12] LABS: POINT-OF-CARE METER ID UU13113731
[2016-08-26 09:32] LABS: ANION GAP 14 MEQ/L (2-14); CHLORIDE 109 MEQ/L (99-109); GFR ESTIMATE (CALCULATED) 33 mL/min/; POTASSIUM 3.9 MEQ/L (3.7-5.4); SAMPLE HEMOLYSIS CHECK 0; SAMPLE ICTERIC CHECK 0; SAMPLE LIPEMIA CHECK 0; SODIUM 135 MEQ/L (136-147); UREA NITROGEN (BUN) 71 mg/dL (9-23)
[2016-08-26 09:33] LABS: GLUCOSE 184 mg/dL (70-99)
[2016-08-26 10:16] LABS: POINT-OF-CARE METER ID UU13113731
[2016-08-26 11:24] LABS: POINT-OF-CARE METER ID UU14174217
[2016-08-26 12:17] LABS: POINT-OF-CARE METER ID UU13113731
[2016-08-26 13:26] LABS: POINT-OF-CARE METER ID UU14174217
[2016-08-26 13:43] LABS: ANION GAP 16 MEQ/L (2-14); CHLORIDE 110 MEQ/L (99-109); GFR ESTIMATE (CALCULATED) 33 mL/min/; GLUCOSE 210 mg/dL (70-99); POTASSIUM 3.9 MEQ/L (3.7-5.4); SAMPLE HEMOLYSIS CHECK 0; SAMPLE ICTERIC CHECK 0; SAMPLE LIPEMIA CHECK 0; SODIUM 137 MEQ/L (136-147); UREA NITROGEN (BUN) 71 mg/dL (9-23)
[2016-08-26 14:19] LABS: POINT-OF-CARE METER ID UU14174217
[2016-08-26 15:19] LABS: POINT-OF-CARE METER ID UU14174217
[2016-08-26 16:11] LABS: ANION GAP 14 MEQ/L (2-14); CHLORIDE 108 MEQ/L (99-109); GFR ESTIMATE (CALCULATED) 33 mL/min/; GLUCOSE 174 mg/dL (70-99); POTASSIUM 3.8 MEQ/L (3.7-5.4); SAMPLE HEMOLYSIS CHECK 0; SAMPLE ICTERIC CHECK 0; SAMPLE LIPEMIA CHECK 0; SODIUM 135 MEQ/L (136-147); TOTAL BILIRUBIN 1.1 MG/DL (0.0-1.0); UREA NITROGEN (BUN) 68 mg/dL (9-23)
[2016-08-26 16:13] LABS: ALKALINE PHOSPHATASE 300 IU/L (3-129)
[2016-08-26 17:03] LABS: POINT-OF-CARE METER ID UU13113748
[2016-08-26 18:58] LABS: POINT-OF-CARE METER ID UU14174217; POINT-OF-CARE USER ID 606021424
[2016-08-26 19:54] LABS: POINT-OF-CARE METER ID UU14174217
[2016-08-26 20:29] LABS: ANION GAP 16 MEQ/L (2-14); CHLORIDE 110 MEQ/L (99-109); GFR ESTIMATE (CALCULATED) 35 mL/min/; GLUCOSE 153 mg/dL (70-99); POTASSIUM 3.8 MEQ/L (3.7-5.4); SAMPLE HEMOLYSIS CHECK 0; SAMPLE ICTERIC CHECK 0; SAMPLE LIPEMIA CHECK 0; SODIUM 140 MEQ/L (136-147); UREA NITROGEN (BUN) 68 mg/dL (9-23)
[2016-08-26 20:40] LABS: POINT-OF-CARE METER ID UU13113748
[2016-08-26 20:58] LABS: HEMATOCRIT 25.4 % (38.0-50.0); MCH 26.6 PG (29.0-34.0); MCHC 33.9 G/DL (30.0-36.0); MCV 78.6 FL (86-99); MEAN PLAT.VOLUME 9.6 uM^3 (9.0-12.4); NRBC (%) 0.1 /100 WBC (0-0); PLATELET COUNT 95 K/uL (156-360); RBC DIS.WIDTH-CV 17.5 % (11.8-14.6); RED BLOOD COUNT 3.23 M/uL (4.00-5.50); WHITE BLOOD COUNT 20.7 K/uL (4.1-10.2)
[2016-08-26 21:12] LABS: TROP-I INTERPRETATION POSITIVE; TROPONIN-I 4.46 ng/mL (0.0-0.30)
[2016-08-26 21:52] LABS: POINT-OF-CARE METER ID UU13113748
[2016-08-26 23:09] LABS: POINT-OF-CARE METER ID UU13113748
[2016-08-27 00:06] LABS: POINT-OF-CARE METER ID UU13113748
[2016-08-27 01:15] LABS: POINT-OF-CARE METER ID UU13113731
[2016-08-27 02:20] LABS: POINT-OF-CARE METER ID UU13113731; POINT-OF-CARE USER ID ENVSME70
[2016-08-27 03:10] LABS: POINT-OF-CARE METER ID UU13113731
[2016-08-27 04:14] LABS: POINT-OF-CARE METER ID UU13113731; POINT-OF-CARE USER ID ENVSME70
[2016-08-27 05:14] LABS: CHLORIDE 109 mEq/L (99-109); POTASSIUM 3.3 mEq/L (3.7-5.4); SODIUM 139 mEq/L (136-147)
[2016-08-27 05:15] LABS: MAGNESIUM 1.7 mg/dL (1.3-2.7)
[2016-08-27 05:17] LABS: GLUCOSE 204 mg/dL (70-99)
[2016-08-27 05:18] LABS: ANION GAP 13 MEQ/L (2-14)
[2016-08-27 05:19] LABS: TOTAL BILIRUBIN 1.1 mg/dL (0.0-1.0)
[2016-08-27 05:21] LABS: GFR ESTIMATE (CALCULATED) 31 mL/min/
[2016-08-27 05:22] LABS: DIRECT BILIRUBIN 0.9 mg/dL (0.0-0.3); UREA NITROGEN (BUN) 73 mg/dL (9-23)
[2016-08-27 05:23] LABS: ALKALINE PHOSPHATASE 408 IU/L (3-129)
[2016-08-27 05:25] LABS: TROP-I INTERPRETATION POSITIVE; TROPONIN-I 3.47 ng/mL (0.0-0.30)
[2016-08-27 05:53] LABS: ABS NEUTROPHIL COUNT 19.6; ANISOCYTOSIS 1+; BURR CELLS 2+; EOSINOPHIL ABS CT 0; HEMATOCRIT 24.9 % (38.0-50.0); INSTRUMENT ABS NEUTROPHIL CT 19.4 K/uL; LYMPHOCYTES 2.2 % (15.0-45.0); MACROCYTES 1+; MCHC 35.7 G/DL (30.0-36.0); MCV 75.5 FL (86-99); MEAN PLAT.VOLUME 10.5 uM^3 (9.0-12.4); NRBC (%) 0.1 /100 WBC (0-0); OVALOCYTES 1+; PLAT.SUFFICIENCY DECREASED; PLATELET COUNT 90 K/uL (156-360); POIKILOCYTOSIS 2+; RBC DIS.WIDTH-CV 17.3 % (11.8-14.6); RBC DIS.WIDTH-SD 47.8 % (39-53); SEG.NEUTROPHILS 90.3 % (46.0-76.0); WHITE BLOOD COUNT 20.8 K/uL (4.1-10.2)
[2016-08-27 06:04] LABS: POINT-OF-CARE METER ID UU13113731
[2016-08-27 07:17] LABS: POINT-OF-CARE METER ID UU13113731; POINT-OF-CARE USER ID 609231305
[2016-08-27 07:33] LABS: SAMPLE HEMOLYSIS CHECK 0; SAMPLE ICTERIC CHECK 0; SAMPLE LIPEMIA CHECK 0
[2016-08-27 07:36] LABS: VANCOMYCIN, TROUGH 28.6 MCG/ML (10-20)
[2016-08-27 08:03] LABS: POINT-OF-CARE METER ID UU13113731
[2016-08-27 09:28] LABS: POINT-OF-CARE METER ID UU13113731
[2016-08-27 10:23] LABS: POINT-OF-CARE METER ID UU13113731
[2016-08-27 11:46] LABS: POINT-OF-CARE METER ID UU13113731
[2016-08-27 13:25] LABS: POINT-OF-CARE METER ID UU13113731
[2016-08-27 15:54] LABS: POINT-OF-CARE METER ID UU14208751
[2016-08-27 16:57] LABS: POINT-OF-CARE METER ID UU13113731
[2016-08-27 17:55] LABS: POINT-OF-CARE METER ID UU13113731
[2016-08-27 18:47] LABS: HEMATOCRIT 24.5 % (38.0-50.0); MCHC 35.5 G/DL (30.0-36.0); MCV 76.1 FL (86-99); MEAN PLAT.VOLUME 10.5 uM^3 (9.0-12.4); NRBC (%) 0.2 /100 WBC (0-0); PLATELET COUNT 89 K/uL (156-360); RBC DIS.WIDTH-CV 17.2 % (11.8-14.6); RBC DIS.WIDTH-SD 47.8 % (39-53); RED BLOOD COUNT 3.22 M/uL (4.00-5.50); WHITE BLOOD COUNT 22.4 K/uL (4.1-10.2)
[2016-08-27 18:56] LABS: POINT-OF-CARE METER ID UU13113731
[2016-08-27 19:16] LABS: ANION GAP 15 MEQ/L (2-14); CHLORIDE 108 MEQ/L (99-109); GFR ESTIMATE (CALCULATED) 37 mL/min/; GLUCOSE 128 mg/dL (70-99); MAGNESIUM 2.3 mg/dl (1.3-2.7); POTASSIUM 3.4 MEQ/L (3.7-5.4); SAMPLE HEMOLYSIS CHECK 0; SAMPLE ICTERIC CHECK 0; SAMPLE LIPEMIA CHECK 0; SODIUM 142 MEQ/L (136-147); UREA NITROGEN (BUN) 63 mg/dL (9-23)
[2016-08-27 20:03] LABS: POINT-OF-CARE METER ID UU13113731; POINT-OF-CARE USER ID 609231305
[2016-08-27 20:55] LABS: POINT-OF-CARE METER ID UU13113731
[2016-08-27 22:10] LABS: POINT-OF-CARE METER ID UU13113731
[2016-08-27 23:39] LABS: POINT-OF-CARE METER ID UU13113731; POINT-OF-CARE USER ID 609231305
[2016-08-28 00:25] LABS: AMYLASE 20 IU/L (1-118); LIPASE 25 U/L (1.0-51.0)
[2016-08-28 01:00] VITALS: BP 105/75
[2016-08-28 01:24] LABS: POINT-OF-CARE METER ID UU14208751
[2016-08-28 01:28] LABS: BASE EXCESS -1.5 mEq/L (-3 to +3); BICARBONATE 20.7 mEq/L (22-26); CARBOXY HGB 1.6 % (0-5); COMMENTS - BLOOD GASES C+; DEVICE VENT; FI02 40 %; METHEMOGLOBIN 1.8 % (0-1.5); MODE A/C; PCO2 26 mm Hg (35-45); PO2 66 mm Hg (80-100); SITE ALINE; pH 7.51 (7.35-7.45)
[2016-08-28 01:29] LABS: MECHANICAL RATE 20 resp/min; PEEP 5 CM/H20; TIDAL VOLUME 550 ML; TOTAL RESP RATE 24 resp/min
[2016-08-28 02:10] LABS: POINT-OF-CARE METER ID UU14208751
[2016-08-28 04:19] LABS: POINT-OF-CARE METER ID UU14208751
[2016-08-28 05:08] LABS: CHLORIDE 109 mEq/L (99-109); MAGNESIUM 1.9 mg/dL (1.3-2.7); POTASSIUM 3.6 mEq/L (3.7-5.4); SODIUM 140 mEq/L (136-147)
[2016-08-28 05:10] LABS: GLUCOSE 168 mg/dL (70-99)
[2016-08-28 05:12] LABS: ANION GAP 11 MEQ/L (2-14)
[2016-08-28 05:14] LABS: ALKALINE PHOSPHATASE 460 IU/L (3-129); GFR ESTIMATE (CALCULATED) 37 mL/min/
[2016-08-28 05:15] LABS: UREA NITROGEN (BUN) 64 mg/dL (9-23)
[2016-08-28 05:16] LABS: DIRECT BILIRUBIN 0.6 mg/dL (0.0-0.3)
[2016-08-28 05:17] LABS: TOTAL BILIRUBIN 0.8 mg/dL (0.0-1.0)
[2016-08-28 06:20] LABS: HEMATOCRIT 24.6 % (38.0-50.0); MCH 26.5 PG (29.0-34.0); MCV 75.9 FL (86-99); MEAN PLAT.VOLUME 10.7 uM^3 (9.0-12.4); NRBC (%) 0.1 /100 WBC (0-0); PLATELET COUNT 99 K/uL (156-360); RBC DIS.WIDTH-CV 17.5 % (11.8-14.6); RBC DIS.WIDTH-SD 48.5 % (39-53); RED BLOOD COUNT 3.24 M/uL (4.00-5.50); WHITE BLOOD COUNT 22.7 K/uL (4.1-10.2)
[2016-08-28 06:38] LABS: POINT-OF-CARE METER ID UU14208751
[2016-08-28 07:17] LABS: ABS NEUTROPHIL COUNT 22.1; ANISOCYTOSIS 1+; BAND NEUTROPHILS 8.3 % (0-8.0); EOSINOPHIL ABS CT 0; HYPOCHROMASIA 1+; INSTRUMENT ABS NEUTROPHIL CT 21.7 K/uL; LYMPHOCYTES 1.7 % (15.0-45.0); MACROCYTES 1+; METAMYELOCYTES 0.9 %; MICROCYTOSIS 1+; POIKILOCYTOSIS 1+; SEG.NEUTROPHILS 89.1 % (46.0-76.0); TARGET CELLS 1+; TEAR DROP CELLS 1+; TOXIC GRANULATION 1+
[2016-08-28 10:00] VITALS: BP 114/73
[2016-08-28 11:00] VITALS: BP 109/86
[2016-08-28 12:39] LABS: C3 COMPLEMENT 46 MG/DL (58-170); C4 COMPLEMENT 9 MG/DL (10-40)
[2016-08-28 12:56] LABS: POINT-OF-CARE METER ID UU14208751
[2016-08-28 17:52] LABS: HEMATOCRIT 25.5 % (38.0-50.0); MCH 26.6 PG (29.0-34.0); MCHC 34.5 G/DL (30.0-36.0); MEAN PLAT.VOLUME 10.6 uM^3 (9.0-12.4); NRBC (%) 0.1 /100 WBC (0-0); PLATELET COUNT 88 K/uL (156-360); RBC DIS.WIDTH-SD 50.5 % (39-53); RED BLOOD COUNT 3.31 M/uL (4.00-5.50); WHITE BLOOD COUNT 13.4 K/uL (4.1-10.2)
[2016-08-28 17:55] LABS: POINT-OF-CARE METER ID UU14208751
[2016-08-28 18:39] LABS: ANION GAP 11 MEQ/L (2-14); CHLORIDE 111 MEQ/L (99-109); GFR ESTIMATE (CALCULATED) 41 mL/min/; GLUCOSE 180 mg/dL (70-99); POTASSIUM 3.9 MEQ/L (3.7-5.4); SAMPLE HEMOLYSIS CHECK 0; SAMPLE ICTERIC CHECK 0; SAMPLE LIPEMIA CHECK 0; SODIUM 144 MEQ/L (136-147); UREA NITROGEN (BUN) 63 mg/dL (9-23)
[2016-08-28 18:48] LABS: MAGNESIUM 2.7 mg/dl (1.3-2.7)
[2016-08-28 19:00] VITALS: BP 125/58
[2016-08-28 21:13] LABS: POINT-OF-CARE METER ID UU14208751
[2016-08-28 23:46] LABS: POINT-OF-CARE METER ID UU14208751
[2016-08-29 05:54] LABS: POINT-OF-CARE METER ID UU14174217
[2016-08-29 06:20] LABS: ANION GAP 11 MEQ/L (2-14); CHLORIDE 113 MEQ/L (99-109); GFR ESTIMATE (CALCULATED) 39 mL/min/; MAGNESIUM 2.6 mg/dl (1.3-2.7); POTASSIUM 4.3 MEQ/L (3.7-5.4); SAMPLE HEMOLYSIS CHECK 0; SAMPLE ICTERIC CHECK 0; SAMPLE LIPEMIA CHECK 0; SODIUM 145 MEQ/L (136-147); UREA NITROGEN (BUN) 66 mg/dL (9-23)
[2016-08-29 06:22] LABS: GLUCOSE 107 mg/dL (70-99)
[2016-08-29 06:33] LABS: MCH 25.7 PG (29.0-34.0); MCHC 33.2 G/DL (30.0-36.0); MCV 77.4 FL (86-99); PLATELET COUNT 89 K/uL (156-360); RBC DIS.WIDTH-CV 18.1 % (11.8-14.6); RBC DIS.WIDTH-SD 50.9 % (39-53); RED BLOOD COUNT 3.23 M/uL (4.00-5.50); WHITE BLOOD COUNT 12.8 K/uL (4.1-10.2)
[2016-08-29 06:35] LABS: MEAN PLAT.VOLUME 12.6 uM^3 (9.0-12.4)
[2016-08-29 06:44] LABS: EOSINOPHIL (%) 0.1 % (0-5); IMMATURE GRANULOCYTE (%) 2.6 % (0.0-0.7); IMMATURE GRANULOCYTE COUNT 0.3 K/uL; LYMPHOCYTE COUNT 0.8 K/uL (1.0-2.8); MONOCYTE (%) 4.5 % (3-12); MONOCYTE COUNT 0.6 K/uL (0-0.8); NEUTROPHIL (%) 86.3 % (45-76)
[2016-08-29 07:00] VITALS: BP 107/69
[2016-08-29 08:00] VITALS: BP 112/74
[2016-08-29 09:51] LABS: POINT-OF-CARE METER ID UU14174217
[2016-08-29 12:30] LABS: POINT-OF-CARE METER ID UU14174217
[2016-08-29 17:59] LABS: POINT-OF-CARE METER ID UU14174217
[2016-08-29 20:20] LABS: POINT-OF-CARE METER ID UU14174217
[2016-08-29 23:57] LABS: POINT-OF-CARE METER ID UU14174217
[2016-08-30 05:43] LABS: HEMATOCRIT 23.9 % (38.0-50.0); MCH 27.8 PG (29.0-34.0); MCHC 34.7 G/DL (30.0-36.0); MCV 79.9 FL (86-99); MEAN PLAT.VOLUME 12.5 uM^3 (9.0-12.4); PLATELET COUNT 111 K/uL (156-360); RBC DIS.WIDTH-CV 18.6 % (11.8-14.6); RBC DIS.WIDTH-SD 53.9 % (39-53); RED BLOOD COUNT 2.99 M/uL (4.00-5.50); WHITE BLOOD COUNT 8.8 K/uL (4.1-10.2)
[2016-08-30 07:00] LABS: ANION GAP 10 MEQ/L (2-14); CHLORIDE 112 MEQ/L (99-109); GFR ESTIMATE (CALCULATED) 37 mL/min/; MAGNESIUM 2.4 mg/dl (1.3-2.7); POTASSIUM 3.8 MEQ/L (3.7-5.4); SAMPLE HEMOLYSIS CHECK 0; SAMPLE ICTERIC CHECK 0; SAMPLE LIPEMIA CHECK 0; SODIUM 145 MEQ/L (136-147); UREA NITROGEN (BUN) 79 mg/dL (9-23)
[2016-08-30 07:02] LABS: GLUCOSE 254 mg/dL (70-99)
[2016-08-30 07:30] LABS: EOSINOPHIL (%) 0.3 % (0-5); IMMATURE GRANULOCYTE (%) 1.9 % (0.0-0.7); IMMATURE GRANULOCYTE COUNT 0.2 K/uL; INSTRUMENT ABS NEUTROPHIL CT 7.5 K/uL; LYMPHOCYTE COUNT 0.6 K/uL (1.0-2.8); MONOCYTE (%) 5.2 % (3-12); MONOCYTE COUNT 0.5 K/uL (0-0.8); NEUTROPHIL (%) 85.3 % (45-76); NEUTROPHIL COUNT 7.5 K/uL (1.8-6.4)
[2016-08-30 13:59] LABS: POINT-OF-CARE METER ID UU14174217
[2016-08-30 16:00] VITALS: BP 116/70
[2016-08-30 17:45] LABS: POINT-OF-CARE METER ID UU14162636
[2016-08-30 18:54] LABS: HEMATOCRIT 24.4 % (38.0-50.0); MCH 27.3 PG (29.0-34.0); MCHC 33.6 G/DL (30.0-36.0); MCV 81.3 FL (86-99); MEAN PLAT.VOLUME 12.3 uM^3 (9.0-12.4); RBC DIS.WIDTH-CV 18.7 % (11.8-14.6); RBC DIS.WIDTH-SD 54.9 % (39-53); WHITE BLOOD COUNT 9.5 K/uL (4.1-10.2)
[2016-08-30 18:55] LABS: PLATELET COUNT 152 K/uL (156-360)
[2016-08-30 19:13] LABS: ANION GAP 14 MEQ/L (2-14); CHLORIDE 114 MEQ/L (99-109); GFR ESTIMATE (CALCULATED) 37 mL/min/; GLUCOSE 272 mg/dL (70-99); MAGNESIUM 2.3 mg/dl (1.3-2.7); POTASSIUM 3.7 MEQ/L (3.7-5.4); SAMPLE HEMOLYSIS CHECK 0; SAMPLE ICTERIC CHECK 0; SAMPLE LIPEMIA CHECK 0; SODIUM 147 MEQ/L (136-147); UREA NITROGEN (BUN) 79 mg/dL (9-23)
[2016-08-31 00:20] LABS: POINT-OF-CARE METER ID UU14174217
[2016-08-31 05:12] LABS: MCH 26.8 PG (29.0-34.0); MCHC 33.3 G/DL (30.0-36.0); MCV 80.5 FL (86-99); MEAN PLAT.VOLUME 12.6 uM^3 (9.0-12.4); PLATELET COUNT 168 K/uL (156-360); RBC DIS.WIDTH-CV 18.5 % (11.8-14.6); RBC DIS.WIDTH-SD 53.6 % (39-53); RED BLOOD COUNT 2.98 M/uL (4.00-5.50); WHITE BLOOD COUNT 10.6 K/uL (4.1-10.2)
[2016-08-31 05:35] LABS: ANION GAP 12 MEQ/L (2-14); CHLORIDE 113 MEQ/L (99-109); GFR ESTIMATE (CALCULATED) 35 mL/min/; GLUCOSE 215 mg/dL (70-99); MAGNESIUM 2.3 mg/dl (1.3-2.7); POTASSIUM 3.4 MEQ/L (3.7-5.4); SAMPLE HEMOLYSIS CHECK 0; SAMPLE ICTERIC CHECK 0; SAMPLE LIPEMIA CHECK 0; SODIUM 147 MEQ/L (136-147); UREA NITROGEN (BUN) 79 mg/dL (9-23)
[2016-08-31 05:51] LABS: POINT-OF-CARE METER ID UU13113748
[2016-08-31 06:00] LABS: EOSINOPHIL (%) 0.1 % (0-5); IMMATURE GRANULOCYTE (%) 1.8 % (0.0-0.7); IMMATURE GRANULOCYTE COUNT 0.2 K/uL; INSTRUMENT ABS NEUTROPHIL CT 9.3 K/uL; LYMPHOCYTE COUNT 0.7 K/uL (1.0-2.8); MONOCYTE (%) 4.3 % (3-12); MONOCYTE COUNT 0.5 K/uL (0-0.8); NEUTROPHIL (%) 87.4 % (45-76); NEUTROPHIL COUNT 9.3 K/uL (1.8-6.4); PLAT.SUFFICIENCY ADEQUATE
[2016-08-31 18:35] LABS: HEMATOCRIT 23.6 % (38.0-50.0); MCH 26.4 PG (29.0-34.0); MCHC 32.6 G/DL (30.0-36.0); MCV 80.8 FL (86-99); MEAN PLAT.VOLUME 11.3 uM^3 (9.0-12.4); PLATELET COUNT 169 K/uL (156-360); RBC DIS.WIDTH-CV 18.3 % (11.8-14.6); RBC DIS.WIDTH-SD 53.1 % (39-53); RED BLOOD COUNT 2.92 M/uL (4.00-5.50); WHITE BLOOD COUNT 12.3 K/uL (4.1-10.2)
[2016-08-31 18:52] LABS: ANION GAP 13 MEQ/L (2-14); CHLORIDE 114 MEQ/L (99-109); GFR ESTIMATE (CALCULATED) 39 mL/min/; GLUCOSE 145 mg/dL (70-99); MAGNESIUM 2.2 mg/dl (1.3-2.7); POTASSIUM 3.1 MEQ/L (3.7-5.4); SAMPLE HEMOLYSIS CHECK 0; SAMPLE ICTERIC CHECK 0; SAMPLE LIPEMIA CHECK 0; SODIUM 149 MEQ/L (136-147); UREA NITROGEN (BUN) 84 mg/dL (9-23)
[2016-08-31 21:00] VITALS: BP 98/50
[2016-09-01 00:59] LABS: POINT-OF-CARE METER ID UU14208751
[2016-09-01 05:03] LABS: HEMATOCRIT 26.8 % (38.0-50.0); MCH 26.4 PG (29.0-34.0); MCHC 32.5 G/DL (30.0-36.0); MCV 81.5 FL (86-99); NRBC (%) 0.1 /100 WBC (0-0); PLATELET COUNT 199 K/uL (156-360); RBC DIS.WIDTH-CV 18.5 % (11.8-14.6); RBC DIS.WIDTH-SD 53.6 % (39-53); RED BLOOD COUNT 3.29 M/uL (4.00-5.50); WHITE BLOOD COUNT 15.3 K/uL (4.1-10.2)
[2016-09-01 05:42] LABS: ANION GAP 15 MEQ/L (2-14); CHLORIDE 115 MEQ/L (99-109); GFR ESTIMATE (CALCULATED) 37 mL/min/; MAGNESIUM 2.2 mg/dl (1.3-2.7); POTASSIUM 3.2 MEQ/L (3.7-5.4); SAMPLE HEMOLYSIS CHECK 0; SAMPLE ICTERIC CHECK 0; SAMPLE LIPEMIA CHECK 0; SODIUM 153 MEQ/L (136-147); UREA NITROGEN (BUN) 80 mg/dL (9-23)
[2016-09-01 05:44] LABS: ALKALINE PHOSPHATASE 165 IU/L (3-129); GLUCOSE 75 mg/dL (70-99); TOTAL BILIRUBIN 0.5 MG/DL (0.0-1.0)
[2016-09-01 05:58] LABS: POINT-OF-CARE METER ID UU14208751
[2016-09-01 06:26] LABS: EOSINOPHIL (%) 0.5 % (0-5); EOSINOPHIL COUNT 0.1 K/uL (0-0.3); IMMATURE GRANULOCYTE (%) 1.6 % (0.0-0.7); IMMATURE GRANULOCYTE COUNT 0.2 K/uL; INSTRUMENT ABS NEUTROPHIL CT 13.7 K/uL; MONOCYTE (%) 2.3 % (3-12); MONOCYTE COUNT 0.4 K/uL (0-0.8); NEUTROPHIL COUNT 13.7 K/uL (1.8-6.4)
[2016-09-01 06:53] LABS: POINT-OF-CARE METER ID UU14208751
[2016-09-01 14:00] VITALS: BP 98/50
[2016-09-01 15:00] VITALS: BP 98/50
[2016-09-01 17:32] LABS: POINT-OF-CARE METER ID UU14208751
[2016-09-01 18:29] LABS: HEMATOCRIT 22.8 % (38.0-50.0); MCH 27.3 PG (29.0-34.0); MCHC 33.3 G/DL (30.0-36.0); PLATELET COUNT 183 K/uL (156-360); RBC DIS.WIDTH-CV 18.6 % (11.8-14.6); RBC DIS.WIDTH-SD 53.6 % (39-53); RED BLOOD COUNT 2.78 M/uL (4.00-5.50); WHITE BLOOD COUNT 14.5 K/uL (4.1-10.2)
[2016-09-01 19:08] LABS: ANION GAP 13 MEQ/L (2-14); CHLORIDE 117 MEQ/L (99-109); GFR ESTIMATE (CALCULATED) 41 mL/min/; GLUCOSE 70 mg/dL (70-99); MAGNESIUM 2.1 mg/dl (1.3-2.7); POTASSIUM 3.3 MEQ/L (3.7-5.4); SAMPLE HEMOLYSIS CHECK 0; SAMPLE ICTERIC CHECK 0; SAMPLE LIPEMIA CHECK 0; SODIUM 151 MEQ/L (136-147); UREA NITROGEN (BUN) 79 mg/dL (9-23)
[2016-09-02] VITALS (7 sets, daily range): BP systolic 88–99; BP diastolic 46–55
[2016-09-02 05:37] LABS: HEMATOCRIT 21.2 % (38.0-50.0); MCH 27.3 PG (29.0-34.0); MCV 82.8 FL (86-99); MEAN PLAT.VOLUME 12.5 uM^3 (9.0-12.4); PLATELET COUNT 183 K/uL (156-360); RBC DIS.WIDTH-CV 18.6 % (11.8-14.6); RBC DIS.WIDTH-SD 54.8 % (39-53); RED BLOOD COUNT 2.56 M/uL (4.00-5.50); WHITE BLOOD COUNT 17.1 K/uL (4.1-10.2)
[2016-09-02 06:03] LABS: POINT-OF-CARE METER ID UU14162636
[2016-09-02 06:32] LABS: ANION GAP 11 MEQ/L (2-14); CHLORIDE 116 MEQ/L (99-109); GFR ESTIMATE (CALCULATED) 37 mL/min/; MAGNESIUM 2.1 mg/dl (1.3-2.7); POTASSIUM 3.5 MEQ/L (3.7-5.4); SAMPLE HEMOLYSIS CHECK 0; SAMPLE ICTERIC CHECK 0; SAMPLE LIPEMIA CHECK 0; SODIUM 151 MEQ/L (136-147); UREA NITROGEN (BUN) 79 mg/dL (9-23); VANCOMYCIN, TROUGH 23.7 MCG/ML (10-20)
[2016-09-02 06:33] LABS: GLUCOSE 107 mg/dL (70-99)
[2016-09-02 08:00] LABS: ABS NEUTROPHIL COUNT 15.9; EOSINOPHIL ABS CT 0; INSTRUMENT ABS NEUTROPHIL CT 15.4 K/uL; SMUDGE CELLS 1.7
[2016-09-02 09:21] LABS: POINT-OF-CARE METER ID UU14162636
[2016-09-02 12:34] LABS: POINT-OF-CARE METER ID UU14162636
[2016-09-02 18:07] LABS: POINT-OF-CARE METER ID UU14162636
[2016-09-02 22:16] LABS: POINT-OF-CARE METER ID UU14162636
[2016-09-03] VITALS (18 sets, daily range): BP systolic 91–132; BP diastolic 46–68
[2016-09-03 05:38] LABS: POINT-OF-CARE METER ID UU14162636
[2016-09-03 06:18] LABS: HEMATOCRIT 19.4 % (38.0-50.0); MCH 27.3 PG (29.0-34.0); MCHC 32.5 G/DL (30.0-36.0); MEAN PLAT.VOLUME 12.2 uM^3 (9.0-12.4); PLATELET COUNT 227 K/uL (156-360); RBC DIS.WIDTH-CV 18.6 % (11.8-14.6); RBC DIS.WIDTH-SD 57.1 % (39-53); RED BLOOD COUNT 2.31 M/uL (4.00-5.50); WHITE BLOOD COUNT 16.4 K/uL (4.1-10.2)
[2016-09-03 06:39] LABS: ANION GAP 11 MEQ/L (2-14); CHLORIDE 111 MEQ/L (99-109); GFR ESTIMATE (CALCULATED) 37 mL/min/; GLUCOSE 105 mg/dL (70-99); MAGNESIUM 2.1 mg/dl (1.3-2.7); POTASSIUM 3.4 MEQ/L (3.7-5.4); SAMPLE HEMOLYSIS CHECK 0; SAMPLE ICTERIC CHECK 0; SAMPLE LIPEMIA CHECK 0; SODIUM 146 MEQ/L (136-147); UREA NITROGEN (BUN) 80 mg/dL (9-23)
[2016-09-03 07:16] LABS: EOSINOPHIL (%) 0.6 % (0-5); EOSINOPHIL COUNT 0.1 K/uL (0-0.3); HEMATOLOGY COMMENT 1 SMEAR COMPATIBLE; IMMATURE GRANULOCYTE COUNT 0.2 K/uL; INSTRUMENT ABS NEUTROPHIL CT 14.8 K/uL; MONOCYTE COUNT 0.3 K/uL (0-0.8); NEUTROPHIL (%) 90.5 % (45-76); NEUTROPHIL COUNT 14.8 K/uL (1.8-6.4)
[2016-09-03 18:24] LABS: POINT-OF-CARE METER ID UU14174217
[2016-09-03 20:38] LABS: HEMATOCRIT 22.1 % (38.0-50.0); MCV 83.1 FL (86-99)
[2016-09-03 23:03] LABS: Neutrophil Cytoplasmic Aby Negative (Negative)
[2016-09-04] VITALS (21 sets, daily range): BP systolic 72–106; BP diastolic 34–55
[2016-09-04 01:02] LABS: POINT-OF-CARE METER ID UU14174217
[2016-09-04 04:57] LABS: HEMATOCRIT 21.1 % (38.0-50.0); MCHC 31.8 G/DL (30.0-36.0); MCV 81.8 FL (86-99); NRBC (%) 0.1 /100 WBC (0-0); RBC DIS.WIDTH-CV 17.8 % (11.8-14.6); RBC DIS.WIDTH-SD 52.4 % (39-53); RED BLOOD COUNT 2.58 M/uL (4.00-5.50); WHITE BLOOD COUNT 13.5 K/uL (4.1-10.2)
[2016-09-04 05:05] LABS: CHLORIDE 117 mEq/L (99-109); POTASSIUM 3.7 mEq/L (3.7-5.4); SODIUM 149 mEq/L (136-147)
[2016-09-04 05:06] LABS: MAGNESIUM 1.7 mg/dL (1.3-2.7)
[2016-09-04 05:07] LABS: GLUCOSE 145 mg/dL (70-99)
[2016-09-04 05:09] LABS: ANION GAP 11 MEQ/L (2-14)
[2016-09-04 05:11] LABS: GFR ESTIMATE (CALCULATED) 37 mL/min/
[2016-09-04 05:12] LABS: UREA NITROGEN (BUN) 85 mg/dL (9-23)
[2016-09-04 05:49] LABS: BASOPHILS 0.9 %; EOSINOPHIL ABS CT 0; HEMATOLOGY COMMENT 1 SN; LYMPHOCYTES 1.7 % (15.0-45.0); MEAN PLAT.VOLUME 11.7 uM^3 (9.0-12.4); METAMYELOCYTES 0.9 %; PLATELET COUNT 245 K/uL (156-360); SEG.NEUTROPHILS 96.5 % (46.0-76.0)
[2016-09-04 06:00] LABS: SAMPLE HEMOLYSIS CHECK 0; SAMPLE ICTERIC CHECK 0; SAMPLE LIPEMIA CHECK 0; VANCOMYCIN, TROUGH 20.7 MCG/ML (10-20)
[2016-09-04 12:34] LABS: POINT-OF-CARE METER ID UU13113748
[2016-09-04 17:58] LABS: POINT-OF-CARE METER ID UU14208751
[2016-09-04 18:57] LABS: INTERNAL CONTROL VALID? YES
[2016-09-04 20:38] LABS: POINT-OF-CARE METER ID UU13113748
[2016-09-05] VITALS (32 sets, daily range): BP systolic 76–128; BP diastolic 38–689
[2016-09-05 01:39] LABS: POINT-OF-CARE METER ID UU14174217
[2016-09-05 06:17] LABS: POINT-OF-CARE METER ID UU14174217
[2016-09-05 06:23] LABS: ANION GAP 12 MEQ/L (2-14); CHLORIDE 117 MEQ/L (99-109); GFR ESTIMATE (CALCULATED) 35 mL/min/; GLUCOSE 126 mg/dL (70-99); MAGNESIUM 2.3 mg/dl (1.3-2.7); POTASSIUM 3.7 MEQ/L (3.7-5.4); SAMPLE HEMOLYSIS CHECK 0; SAMPLE ICTERIC CHECK 0; SAMPLE LIPEMIA CHECK 0; SODIUM 149 MEQ/L (136-147); UREA NITROGEN (BUN) 73 mg/dL (9-23); VANCOMYCIN, TROUGH 17.2 MCG/ML (10-20)
[2016-09-05 06:39] LABS: HEMATOCRIT 21.5 % (38.0-50.0); MCHC 32.6 G/DL (30.0-36.0); RBC DIS.WIDTH-SD 53.6 % (39-53); RED BLOOD COUNT 2.59 M/uL (4.00-5.50); WHITE BLOOD COUNT 11.8 K/uL (4.1-10.2)
[2016-09-05 08:07] LABS: EOSINOPHIL (%) 0.3 % (0-5); IMMATURE GRANULOCYTE (%) 1.1 % (0.0-0.7); IMMATURE GRANULOCYTE COUNT 0.1 K/uL; INSTRUMENT ABS NEUTROPHIL CT 10.5 K/uL; LYMPHOCYTE COUNT 0.9 K/uL (1.0-2.8); MEAN PLAT.VOLUME 12.7 uM^3 (9.0-12.4); MONOCYTE (%) 2.4 % (3-12); MONOCYTE COUNT 0.3 K/uL (0-0.8); NEUTROPHIL (%) 88.8 % (45-76); NEUTROPHIL COUNT 10.5 K/uL (1.8-6.4); PLAT.SUFFICIENCY ADEQUATE; PLATELET COUNT 243 K/uL (156-360)
[2016-09-05 11:13] LABS: POC NON-PRINT COM 1 ND
[2016-09-05 12:38] LABS: POINT-OF-CARE METER ID UU14174217
[2016-09-05 16:22] LABS: ANION GAP 11 MEQ/L (2-14); CHLORIDE 115 MEQ/L (99-109); GFR ESTIMATE (CALCULATED) 35 mL/min/; GLUCOSE 135 mg/dL (70-99); POTASSIUM 3.5 MEQ/L (3.7-5.4); SAMPLE HEMOLYSIS CHECK 0; SAMPLE ICTERIC CHECK 0; SAMPLE LIPEMIA CHECK 0; SODIUM 147 MEQ/L (136-147); UREA NITROGEN (BUN) 73 mg/dL (9-23)
[2016-09-05 18:18] LABS: POINT-OF-CARE METER ID UU13113748
[2016-09-06] VITALS (22 sets, daily range): BP systolic 90–135; BP diastolic 48–83
[2016-09-06 00:49] LABS: POINT-OF-CARE METER ID UU13113748
[2016-09-06 05:31] LABS: EOSINOPHIL COUNT 0.1 K/uL (0-0.3); HEMATOCRIT 26.2 % (38.0-50.0); IMMATURE GRANULOCYTE (%) 0.6 % (0.0-0.7); INSTRUMENT ABS NEUTROPHIL CT 5.5 K/uL; LYMPHOCYTE COUNT 0.8 K/uL (1.0-2.8); MCH 26.8 PG (29.0-34.0); MCHC 32.8 G/DL (30.0-36.0); MCV 81.6 FL (86-99); MEAN PLAT.VOLUME 11.1 uM^3 (9.0-12.4); MONOCYTE (%) 3.7 % (3-12); MONOCYTE COUNT 0.3 K/uL (0-0.8); NEUTROPHIL (%) 82.5 % (45-76); NEUTROPHIL COUNT 5.5 K/uL (1.8-6.4); PLATELET COUNT 281 K/uL (156-360); RBC DIS.WIDTH-CV 17.8 % (11.8-14.6); RBC DIS.WIDTH-SD 52.4 % (39-53); WHITE BLOOD COUNT 6.7 K/uL (4.1-10.2)
[2016-09-06 05:41] LABS: RED BLOOD COUNT 3.21 M/uL (4.00-5.50)
[2016-09-06 05:58] LABS: ANION GAP 10 MEQ/L (2-14); CHLORIDE 116 MEQ/L (99-109); GFR ESTIMATE (CALCULATED) 35 mL/min/; GLUCOSE 135 mg/dL (70-99); MAGNESIUM 2.3 mg/dl (1.3-2.7); POTASSIUM 3.5 MEQ/L (3.7-5.4); SAMPLE HEMOLYSIS CHECK 0; SAMPLE ICTERIC CHECK 0; SAMPLE LIPEMIA CHECK 0; SODIUM 148 MEQ/L (136-147); UREA NITROGEN (BUN) 72 mg/dL (9-23)
[2016-09-06 10:20] LABS: INTER. NORMALIZED RATIO 1.2; PROTHROMBIN TIME 13.5 SEC (10.2-12.9)
[2016-09-06 10:24] LABS: PTT 26.9 SEC (25-37)
[2016-09-06 12:51] LABS: POINT-OF-CARE METER ID UU14174217
[2016-09-06 18:13] LABS: POINT-OF-CARE METER ID UU14174217
[2016-09-06 21:09] LABS: POINT-OF-CARE METER ID UU14208751
[2016-09-07] VITALS (21 sets, daily range): BP systolic 85–146; BP diastolic 48–80
[2016-09-07 07:20] LABS: HEMATOCRIT 25.4 % (38.0-50.0); MCH 26.4 PG (29.0-34.0); MCHC 31.5 G/DL (30.0-36.0); MCV 83.8 FL (86-99); MEAN PLAT.VOLUME 10.8 uM^3 (9.0-12.4); PLATELET COUNT 256 K/uL (156-360); RBC DIS.WIDTH-CV 17.7 % (11.8-14.6); RBC DIS.WIDTH-SD 53.5 % (39-53); RED BLOOD COUNT 3.03 M/uL (4.00-5.50); WHITE BLOOD COUNT 5.1 K/uL (4.1-10.2)
[2016-09-07 07:55] LABS: EOSINOPHIL (%) 2.2 % (0-5); EOSINOPHIL COUNT 0.1 K/uL (0-0.3); HEMATOLOGY COMMENT 1 SMEAR COMPATIBLE; IMMATURE GRANULOCYTE (%) 0.2 % (0.0-0.7); INSTRUMENT ABS NEUTROPHIL CT 3.9 K/uL; LYMPHOCYTE COUNT 0.9 K/uL (1.0-2.8); MONOCYTE (%) 5.3 % (3-12); MONOCYTE COUNT 0.3 K/uL (0-0.8); NEUTROPHIL (%) 75.7 % (45-76); NEUTROPHIL COUNT 3.9 K/uL (1.8-6.4)
[2016-09-07 08:55] LABS: ALKALINE PHOSPHATASE 219 IU/L (3-129); ANION GAP 17 MEQ/L (2-14); CHLORIDE 118 MEQ/L (99-109); GFR ESTIMATE (CALCULATED) 37 mL/min/; GLUCOSE 76 mg/dL (70-99); MAGNESIUM 2.2 mg/dl (1.3-2.7); POTASSIUM 4.4 MEQ/L (3.7-5.4); SAMPLE HEMOLYSIS CHECK 1; SAMPLE ICTERIC CHECK 0; SAMPLE LIPEMIA CHECK 0; SODIUM 149 MEQ/L (136-147); TOTAL BILIRUBIN 0.4 MG/DL (0.0-1.0); UREA NITROGEN (BUN) 68 mg/dL (9-23)
[2016-09-07 11:16] LABS: POINT-OF-CARE METER ID UU14162636
[2016-09-07 17:58] LABS: POINT-OF-CARE METER ID UU14174217
[2016-09-07 18:36] LABS: POINT-OF-CARE METER ID UU14174217
[2016-09-07 21:27] LABS: POINT-OF-CARE METER ID UU14174217
[2016-09-08] VITALS (16 sets, daily range): BP systolic 100–145; BP diastolic 58–80
[2016-09-08 05:26] LABS: POINT-OF-CARE METER ID UU13113748
[2016-09-08 06:57] LABS: ANION GAP 7 MEQ/L (2-14); CHLORIDE 114 MEQ/L (99-109); GFR ESTIMATE (CALCULATED) 47 mL/min/; POTASSIUM 4.4 MEQ/L (3.7-5.4); SAMPLE HEMOLYSIS CHECK 0; SAMPLE ICTERIC CHECK 0; SAMPLE LIPEMIA CHECK 0; SODIUM 145 MEQ/L (136-147); UREA NITROGEN (BUN) 62 mg/dL (9-23)
[2016-09-08 07:00] LABS: GLUCOSE 120 mg/dL (70-99)
[2016-09-08 07:10] LABS: HEMATOCRIT 24.3 % (38.0-50.0); MCH 26.6 PG (29.0-34.0); MCHC 31.7 G/DL (30.0-36.0); MCV 83.8 FL (86-99); MEAN PLAT.VOLUME 10.4 uM^3 (9.0-12.4); PLATELET COUNT 216 K/uL (156-360); RBC DIS.WIDTH-CV 17.4 % (11.8-14.6); RBC DIS.WIDTH-SD 53.3 % (39-53); WHITE BLOOD COUNT 3.4 K/uL (4.1-10.2)
[2016-09-08 08:58] LABS: EOSINOPHIL (%) 2.7 % (0-5); EOSINOPHIL COUNT 0.1 K/uL (0-0.3); HEMATOLOGY COMMENT 1 SMEAR COMPATIBLE; IMMATURE GRANULOCYTE (%) 0.3 % (0.0-0.7); INSTRUMENT ABS NEUTROPHIL CT 2.5 K/uL; LYMPHOCYTE COUNT 0.5 K/uL (1.0-2.8); MONOCYTE (%) 7.1 % (3-12); MONOCYTE COUNT 0.2 K/uL (0-0.8); NEUTROPHIL (%) 73.8 % (45-76); NEUTROPHIL COUNT 2.5 K/uL (1.8-6.4)
[2016-09-08 10:52] LABS: POINT-OF-CARE METER ID UU13113748
[2016-09-08 17:40] LABS: POINT-OF-CARE METER ID UU14174217
[2016-09-08 20:45] LABS: POINT-OF-CARE METER ID UU14208751
[2016-09-09] VITALS (12 sets, daily range): BP systolic 103–157; BP diastolic 65–89
[2016-09-09 00:47] LABS: POINT-OF-CARE METER ID UU14208751
[2016-09-09 04:37] LABS: HEMATOCRIT 23.5 % (38.0-50.0); MCH 25.8 PG (29.0-34.0); MCHC 31.1 G/DL (30.0-36.0); MEAN PLAT.VOLUME 9.7 uM^3 (9.0-12.4); PLATELET COUNT 178 K/uL (156-360); RBC DIS.WIDTH-CV 16.9 % (11.8-14.6); RBC DIS.WIDTH-SD 51.3 % (39-53); RED BLOOD COUNT 2.83 M/uL (4.00-5.50); WHITE BLOOD COUNT 2.8 K/uL (4.1-10.2)
[2016-09-09 04:46] LABS: CHLORIDE 113 mEq/L (99-109); POTASSIUM 4.2 mEq/L (3.7-5.4); SODIUM 145 mEq/L (136-147)
[2016-09-09 04:47] LABS: MAGNESIUM 1.9 mg/dL (1.3-2.7)
[2016-09-09 04:49] LABS: ANION GAP 8 MEQ/L (2-14)
[2016-09-09 04:52] LABS: GFR ESTIMATE (CALCULATED) 44 mL/min/
[2016-09-09 04:53] LABS: UREA NITROGEN (BUN) 65 mg/dL (9-23)
[2016-09-09 04:56] LABS: GLUCOSE 188 mg/dL (70-99)
[2016-09-09 06:05] LABS: POINT-OF-CARE METER ID UU14162636
[2016-09-09 06:50] LABS: EOSINOPHIL (%) 3.6 % (0-5); EOSINOPHIL COUNT 0.1 K/uL (0-0.3); HEMATOLOGY COMMENT 1 SMEAR COMPATIBLE; IMMATURE GRANULOCYTE (%) 0.4 % (0.0-0.7); LYMPHOCYTE COUNT 0.5 K/uL (1.0-2.8); MONOCYTE (%) 6.9 % (3-12); MONOCYTE COUNT 0.2 K/uL (0-0.8); NEUTROPHIL (%) 71.4 % (45-76)
[2016-09-09 06:59] LABS: VANCOMYCIN, TROUGH 12.9 MCG/ML (10-20)
[2016-09-09 11:51] LABS: POINT-OF-CARE METER ID UU13113731
[2016-09-09 12:38] LABS: CREATINE KINASE 26 IU/L (1-294); SAMPLE HEMOLYSIS CHECK 0; SAMPLE ICTERIC CHECK 0; SAMPLE LIPEMIA CHECK 0
[2016-09-09 18:00] LABS: POINT-OF-CARE METER ID UU13113731
[2016-09-10 00:21] LABS: POINT-OF-CARE METER ID UU13113731
[2016-09-10 05:54] LABS: BASE EXCESS 3.9 mEq/L (-3 to +3); BICARBONATE 27.6 mEq/L (22-26); CARBOXY HGB 1.7 % (0-5); COMMENTS - BLOOD GASES A+C+; DEVICE VENT; FI02 30 %; MECHANICAL RATE 8 resp/min; METHEMOGLOBIN 1.4 % (0-1.5); MODE SIMV; PCO2 37 mm Hg (35-45); PEEP 5 CM/H20; PO2 92 mm Hg (80-100); PRES. SUPPORT 15 CM/H2O; SITE RR; TIDAL VOLUME 500 ML; TOTAL RESP RATE 22 resp/min; pH 7.48 (7.35-7.45)
[2016-09-10 06:23] LABS: POINT-OF-CARE METER ID UU14174217
[2016-09-10 06:43] LABS: HEMATOCRIT 28.6 % (38.0-50.0); MCH 27.4 PG (29.0-34.0); MCHC 32.5 G/DL (30.0-36.0); MCV 84.1 FL (86-99); MEAN PLAT.VOLUME 10.4 uM^3 (9.0-12.4); PLATELET COUNT 173 K/uL (156-360); RBC DIS.WIDTH-CV 16.3 % (11.8-14.6); RBC DIS.WIDTH-SD 50.5 % (39-53); WHITE BLOOD COUNT 3.7 K/uL (4.1-10.2)
[2016-09-10 07:07] LABS: ANION GAP 10 MEQ/L (2-14); CHLORIDE 108 MEQ/L (99-109); GFR ESTIMATE (CALCULATED) 47 mL/min/; GLUCOSE 124 mg/dL (70-99); MAGNESIUM 1.9 mg/dl (1.3-2.7); POTASSIUM 4.3 MEQ/L (3.7-5.4); SAMPLE HEMOLYSIS CHECK 0; SAMPLE ICTERIC CHECK 0; SAMPLE LIPEMIA CHECK 0; SODIUM 143 MEQ/L (136-147); UREA NITROGEN (BUN) 55 mg/dL (9-23)
[2016-09-10 07:15] LABS: ALKALINE PHOSPHATASE 146 IU/L (3-129); TOTAL BILIRUBIN 0.7 MG/DL (0.0-1.0)
[2016-09-10 07:18] LABS: ABS NEUTROPHIL COUNT 3.1; BAND NEUTROPHILS 12.3 % (0-8.0); BASOPHILS 0.9 %; EOSINOPHIL ABS CT 0.1; EOSINOPHILS 2.6 % (0-5.0); INSTRUMENT ABS NEUTROPHIL CT 2.6 K/uL; LYMPHOCYTES 10.5 % (15.0-45.0); MYELOCYTES 0.9 %; SMUDGE CELLS 5.3
[2016-09-10 08:00] VITALS: BP 131/77
[2016-09-10 12:00] VITALS: BP 145/79
[2016-09-10 15:29] LABS: POINT-OF-CARE METER ID UU14174217
[2016-09-10 17:34] VITALS: BP 139/82
[2016-09-10 18:33] LABS: POINT-OF-CARE METER ID UU14174217
[2016-09-10 20:09] LABS: POINT-OF-CARE METER ID UU14174217
[2016-09-10 20:26] LABS: POINT-OF-CARE METER ID UU14174217
[2016-09-11 00:04] LABS: POINT-OF-CARE METER ID UU14174217
[2016-09-11 05:06] LABS: HEMATOCRIT 27.3 % (38.0-50.0); MCH 26.6 PG (29.0-34.0); MCHC 31.9 G/DL (30.0-36.0); MCV 83.5 FL (86-99); MEAN PLAT.VOLUME 9.7 uM^3 (9.0-12.4); PLATELET COUNT 144 K/uL (156-360); RBC DIS.WIDTH-CV 15.9 % (11.8-14.6); RBC DIS.WIDTH-SD 48.5 % (39-53); RED BLOOD COUNT 3.27 M/uL (4.00-5.50); WHITE BLOOD COUNT 3.8 K/uL (4.1-10.2)
[2016-09-11 05:41] LABS: CHLORIDE 107 mEq/L (99-109); SODIUM 145 mEq/L (136-147)
[2016-09-11 05:43] LABS: GLUCOSE 107 mg/dL (70-99)
[2016-09-11 05:44] LABS: MAGNESIUM 1.6 mg/dL (1.3-2.7)
[2016-09-11 05:45] LABS: ANION GAP 10 MEQ/L (2-14)
[2016-09-11 05:47] LABS: GFR ESTIMATE (CALCULATED) 47 mL/min/
[2016-09-11 05:48] LABS: UREA NITROGEN (BUN) 54 mg/dL (9-23)
[2016-09-11 06:09] LABS: POINT-OF-CARE METER ID UU14208751
[2016-09-11 07:00] VITALS: BP 135/74
[2016-09-11 07:21] LABS: EOSINOPHIL (%) 3.7 % (0-5); EOSINOPHIL COUNT 0.1 K/uL (0-0.3); IMMATURE GRANULOCYTE (%) 0.5 % (0.0-0.7); INSTRUMENT ABS NEUTROPHIL CT 2.8 K/uL; LYMPHOCYTE COUNT 0.6 K/uL (1.0-2.8); MONOCYTE (%) 6.1 % (3-12); MONOCYTE COUNT 0.2 K/uL (0-0.8); NEUTROPHIL (%) 73.7 % (45-76); NEUTROPHIL COUNT 2.8 K/uL (1.8-6.4)
[2016-09-11 08:00] VITALS: BP 148/76
[2016-09-11 12:00] VITALS: BP 111/58
[2016-09-11 13:19] LABS: POINT-OF-CARE METER ID UU14208751
[2016-09-11 16:00] VITALS: BP 144/82
[2016-09-11 17:22] LABS: POINT-OF-CARE METER ID UU14208751
[2016-09-11 20:00] VITALS: BP 135/78
[2016-09-11 21:32] LABS: POINT-OF-CARE METER ID UU14208751
[2016-09-11 23:59] LABS: POINT-OF-CARE METER ID UU14208751
[2016-09-12] VITALS: BP 112/69
[2016-09-12 04:00] VITALS: BP 113/65
[2016-09-12 05:37] LABS: HEMATOCRIT 25.9 % (38.0-50.0); MCH 27.2 PG (29.0-34.0); MCV 84.9 FL (86-99); MEAN PLAT.VOLUME 10.3 uM^3 (9.0-12.4); PLATELET COUNT 102 K/uL (156-360); RBC DIS.WIDTH-CV 16.3 % (11.8-14.6); RBC DIS.WIDTH-SD 50.4 % (39-53); RED BLOOD COUNT 3.05 M/uL (4.00-5.50); WHITE BLOOD COUNT 4.4 K/uL (4.1-10.2)
[2016-09-12 05:59] LABS: ANION GAP 9 MEQ/L (2-14); CHLORIDE 103 MEQ/L (99-109); GFR ESTIMATE (CALCULATED) 41 mL/min/; MAGNESIUM 1.8 mg/dl (1.3-2.7); POTASSIUM 3.8 MEQ/L (3.7-5.4); SAMPLE HEMOLYSIS CHECK 0; SAMPLE ICTERIC CHECK 0; SAMPLE LIPEMIA CHECK 0; SODIUM 142 MEQ/L (136-147); TOTAL BILIRUBIN 0.6 MG/DL (0.0-1.0); UREA NITROGEN (BUN) 56 mg/dL (9-23)
[2016-09-12 06:06] LABS: ALKALINE PHOSPHATASE 189 IU/L (3-129); GLUCOSE 210 mg/dL (70-99)
[2016-09-12 06:10] LABS: POINT-OF-CARE METER ID UU14208751
[2016-09-12 07:18] LABS: ABS NEUTROPHIL COUNT 3.7; BAND NEUTROPHILS 7.1 % (0-8.0); BASOPHILS 0.9 %; EOSINOPHIL ABS CT 0.1; EOSINOPHILS 2.7 % (0-5.0); INSTRUMENT ABS NEUTROPHIL CT 3.4 K/uL; LYMPHOCYTES 8.8 % (15.0-45.0); PLAT.SUFFICIENCY DECREASED; SEG.NEUTROPHILS 76.1 % (46.0-76.0); SMUDGE CELLS 3.5
[2016-09-12 08:00] VITALS: BP 128/78
[2016-09-12 09:23] LABS: POINT-OF-CARE METER ID UU14208751
[2016-09-12 12:00] VITALS: BP 128/73
[2016-09-12 13:17] LABS: POINT-OF-CARE METER ID UU14208751
[2016-09-12 16:00] VITALS: BP 138/83
[2016-09-12 17:39] LABS: POINT-OF-CARE METER ID UU13113748
[2016-09-12 20:00] VITALS: BP 107/64
[2016-09-13] VITALS: BP 108/65
[2016-09-13 00:35] LABS: POINT-OF-CARE METER ID UU14208751
[2016-09-13 04:00] VITALS: BP 127/75
[2016-09-13 05:49] LABS: HEMATOCRIT 28.2 % (38.0-50.0); MCH 26.3 PG (29.0-34.0); MCHC 31.6 G/DL (30.0-36.0); MCV 83.2 FL (86-99); MEAN PLAT.VOLUME 9.7 uM^3 (9.0-12.4); PLATELET COUNT 111 K/uL (156-360); RBC DIS.WIDTH-CV 16.1 % (11.8-14.6); RBC DIS.WIDTH-SD 49.1 % (39-53); RED BLOOD COUNT 3.39 M/uL (4.00-5.50); WHITE BLOOD COUNT 5.5 K/uL (4.1-10.2)
[2016-09-13 06:09] LABS: POINT-OF-CARE METER ID UU14162636
[2016-09-13 06:44] LABS: ANION GAP 9 MEQ/L (2-14); CHLORIDE 100 MEQ/L (99-109); GFR ESTIMATE (CALCULATED) 44 mL/min/; MAGNESIUM 1.8 mg/dl (1.3-2.7); SAMPLE HEMOLYSIS CHECK 0; SAMPLE ICTERIC CHECK 0; SAMPLE LIPEMIA CHECK 0; SODIUM 142 MEQ/L (136-147); UREA NITROGEN (BUN) 55 mg/dL (9-23)
[2016-09-13 06:46] LABS: GLUCOSE 86 mg/dL (70-99); POTASSIUM 2.9 MEQ/L (3.7-5.4)
[2016-09-13 07:23] LABS: EOSINOPHIL (%) 2.4 % (0-5); EOSINOPHIL COUNT 0.1 K/uL (0-0.3); IMMATURE GRANULOCYTE (%) 0.5 % (0.0-0.7); INSTRUMENT ABS NEUTROPHIL CT 4.5 K/uL; LYMPHOCYTE COUNT 0.5 K/uL (1.0-2.8); MONOCYTE (%) 5.3 % (3-12); MONOCYTE COUNT 0.3 K/uL (0-0.8); NEUTROPHIL (%) 82.2 % (45-76); NEUTROPHIL COUNT 4.5 K/uL (1.8-6.4)
[2016-09-13 08:00] VITALS: BP 117/67
[2016-09-13 12:00] VITALS: BP 93/60
[2016-09-13 13:16] LABS: POINT-OF-CARE METER ID UU14162636
[2016-09-13 16:00] VITALS: BP 137/74
[2016-09-13 17:52] LABS: POINT-OF-CARE METER ID UU14162636
[2016-09-13 20:00] VITALS: BP 115/72
[2016-09-14] VITALS: BP 150/87
[2016-09-14 01:00] LABS: POINT-OF-CARE METER ID UU14162636; POINT-OF-CARE USER ID RADDRS44
[2016-09-14 04:00] VITALS: BP 145/87
[2016-09-14 05:46] LABS: EOSINOPHIL (%) 3.7 % (0-5); EOSINOPHIL COUNT 0.2 K/uL (0-0.3); HEMATOCRIT 27.1 % (38.0-50.0); IMMATURE GRANULOCYTE (%) 0.4 % (0.0-0.7); INSTRUMENT ABS NEUTROPHIL CT 3.8 K/uL; LYMPHOCYTE COUNT 0.8 K/uL (1.0-2.8); MCH 25.8 PG (29.0-34.0); MCHC 30.6 G/DL (30.0-36.0); MCV 84.2 FL (86-99); MEAN PLAT.VOLUME 9.5 uM^3 (9.0-12.4); MONOCYTE (%) 6.2 % (3-12); MONOCYTE COUNT 0.3 K/uL (0-0.8); NEUTROPHIL (%) 74.4 % (45-76); NEUTROPHIL COUNT 3.8 K/uL (1.8-6.4); PLATELET COUNT 125 K/uL (156-360); RBC DIS.WIDTH-SD 49.7 % (39-53); RED BLOOD COUNT 3.22 M/uL (4.00-5.50); WHITE BLOOD COUNT 5.2 K/uL (4.1-10.2)
[2016-09-14 05:58] LABS: ANION GAP 9 MEQ/L (2-14); CHLORIDE 101 MEQ/L (99-109); GFR ESTIMATE (CALCULATED) 47 mL/min/; GLUCOSE 101 mg/dL (70-99); MAGNESIUM 1.8 mg/dl (1.3-2.7); POTASSIUM 3.1 MEQ/L (3.7-5.4); SAMPLE HEMOLYSIS CHECK 0; SAMPLE ICTERIC CHECK 0; SAMPLE LIPEMIA CHECK 0; SODIUM 144 MEQ/L (136-147); UREA NITROGEN (BUN) 56 mg/dL (9-23)
[2016-09-14 05:59] LABS: POINT-OF-CARE METER ID UU13113731; POINT-OF-CARE USER ID RADDRS44
[2016-09-14 08:00] VITALS: BP 145/74
[2016-09-14 12:04] VITALS: BP 147/82
[2016-09-14 14:13] LABS: POINT-OF-CARE METER ID UU13113731
[2016-09-14 16:00] VITALS: BP 139/79
[2016-09-14 18:43] LABS: POINT-OF-CARE METER ID UU13113731
[2016-09-15] VITALS (8 sets, daily range): BP systolic 0–155; BP diastolic 0–91
[2016-09-15 02:23] LABS: POINT-OF-CARE METER ID UU13113731
[2016-09-15 05:21] LABS: EOSINOPHIL COUNT 0.2 K/uL (0-0.3); HEMATOCRIT 25.2 % (38.0-50.0); IMMATURE GRANULOCYTE (%) 0.6 % (0.0-0.7); INSTRUMENT ABS NEUTROPHIL CT 3.7 K/uL; LYMPHOCYTE COUNT 0.9 K/uL (1.0-2.8); MCH 27.2 PG (29.0-34.0); MCHC 32.1 G/DL (30.0-36.0); MCV 84.6 FL (86-99); MEAN PLAT.VOLUME 9.6 uM^3 (9.0-12.4); MONOCYTE (%) 7.9 % (3-12); MONOCYTE COUNT 0.4 K/uL (0-0.8); NEUTROPHIL (%) 70.2 % (45-76); NEUTROPHIL COUNT 3.7 K/uL (1.8-6.4); PLATELET COUNT 133 K/uL (156-360); RBC DIS.WIDTH-CV 16.2 % (11.8-14.6); RBC DIS.WIDTH-SD 50.3 % (39-53); RED BLOOD COUNT 2.98 M/uL (4.00-5.50); WHITE BLOOD COUNT 5.2 K/uL (4.1-10.2)
[2016-09-15 06:00] LABS: POINT-OF-CARE METER ID UU13113731
[2016-09-15 06:14] LABS: ANION GAP 11 MEQ/L (2-14); CHLORIDE 102 MEQ/L (99-109); GFR ESTIMATE (CALCULATED) 50 mL/min/; MAGNESIUM 1.9 mg/dl (1.3-2.7); POTASSIUM 3.5 MEQ/L (3.7-5.4); SAMPLE HEMOLYSIS CHECK 0; SAMPLE ICTERIC CHECK 0; SAMPLE LIPEMIA CHECK 0; SODIUM 145 MEQ/L (136-147); UREA NITROGEN (BUN) 67 mg/dL (9-23)
[2016-09-15 06:27] LABS: GLUCOSE 223 mg/dL (70-99)
[2016-09-15 11:47] LABS: POINT-OF-CARE METER ID UU13113731; POINT-OF-CARE USER ID 612031313
[2016-09-15 17:43] LABS: POINT-OF-CARE METER ID UU13113731; POINT-OF-CARE USER ID 612031313
[2016-09-15 18:36] LABS: C DIFF TOXIN NEGATIVE (NEGATIVE)
[2016-09-15 18:37] LABS: PROBE CHECK PASS; SPECIMEN PROCESSING CONTROL PASS
[2016-09-16] VITALS: BP 131/78
[2016-09-16 00:41] LABS: POINT-OF-CARE METER ID UU13113731
[2016-09-16 04:00] VITALS: BP 142/83
[2016-09-16 05:34] LABS: POINT-OF-CARE METER ID UU14174217
[2016-09-16 05:47] LABS: EOSINOPHIL (%) 2.6 % (0-5); EOSINOPHIL COUNT 0.1 K/uL (0-0.3); IMMATURE GRANULOCYTE (%) 0.4 % (0.0-0.7); INSTRUMENT ABS NEUTROPHIL CT 3.7 K/uL; LYMPHOCYTE COUNT 0.7 K/uL (1.0-2.8); MCH 27.3 PG (29.0-34.0); MCHC 32.1 G/DL (30.0-36.0); MCV 85.1 FL (86-99); MEAN PLAT.VOLUME 9.5 uM^3 (9.0-12.4); MONOCYTE (%) 7.7 % (3-12); MONOCYTE COUNT 0.4 K/uL (0-0.8); NEUTROPHIL (%) 74.3 % (45-76); NEUTROPHIL COUNT 3.7 K/uL (1.8-6.4); RBC DIS.WIDTH-SD 49.6 % (39-53); RED BLOOD COUNT 2.82 M/uL (4.00-5.50); WHITE BLOOD COUNT 4.9 K/uL (4.1-10.2)
[2016-09-16 06:10] LABS: PLATELET COUNT 176 K/uL (156-360)
[2016-09-16 06:23] LABS: ANION GAP 9 MEQ/L (2-14); CHLORIDE 103 MEQ/L (99-109); GFR ESTIMATE (CALCULATED) 54 mL/min/; GLUCOSE 204 mg/dL (70-99); MAGNESIUM 1.9 mg/dl (1.3-2.7); SAMPLE HEMOLYSIS CHECK 0; SAMPLE ICTERIC CHECK 0; SAMPLE LIPEMIA CHECK 0; SODIUM 147 MEQ/L (136-147); UREA NITROGEN (BUN) 62 mg/dL (9-23)
[2016-09-16 08:00] VITALS: BP 143/76
[2016-09-16 11:34] LABS: POINT-OF-CARE METER ID UU14174217; POINT-OF-CARE USER ID 612031313
[2016-09-16 12:00] VITALS: BP 151/82
[2016-09-16 16:00] VITALS: BP 162/90
[2016-09-16 17:26] LABS: POINT-OF-CARE METER ID UU14174217; POINT-OF-CARE USER ID 612031313
[2016-09-16 20:00] VITALS: BP 171/92
[2016-09-16 23:55] LABS: POINT-OF-CARE METER ID UU14174217
[2016-09-17] VITALS (8 sets, daily range): BP systolic 142–178; BP diastolic 71–97
[2016-09-17 04:26] LABS: EOSINOPHIL (%) 5.2 % (0-5); EOSINOPHIL COUNT 0.3 K/uL (0-0.3); HEMATOCRIT 23.4 % (38.0-50.0); IMMATURE GRANULOCYTE (%) 0.4 % (0.0-0.7); INSTRUMENT ABS NEUTROPHIL CT 3.5 K/uL; LYMPHOCYTE COUNT 0.9 K/uL (1.0-2.8); MCH 26.5 PG (29.0-34.0); MCHC 31.2 G/DL (30.0-36.0); MCV 85.1 FL (86-99); MEAN PLAT.VOLUME 9.1 uM^3 (9.0-12.4); MONOCYTE (%) 7.4 % (3-12); MONOCYTE COUNT 0.4 K/uL (0-0.8); NEUTROPHIL (%) 69.8 % (45-76); NEUTROPHIL COUNT 3.5 K/uL (1.8-6.4); PLATELET COUNT 217 K/uL (156-360); RBC DIS.WIDTH-CV 15.9 % (11.8-14.6); RBC DIS.WIDTH-SD 49.3 % (39-53); RED BLOOD COUNT 2.75 M/uL (4.00-5.50)
[2016-09-17 04:39] LABS: CHLORIDE 106 mEq/L (99-109); POTASSIUM 3.1 mEq/L (3.7-5.4); SODIUM 149 mEq/L (136-147)
[2016-09-17 04:40] LABS: MAGNESIUM 1.7 mg/dL (1.3-2.7)
[2016-09-17 04:41] LABS: GLUCOSE 172 mg/dL (70-99)
[2016-09-17 04:43] LABS: ANION GAP 8 MEQ/L (2-14)
[2016-09-17 04:45] LABS: GFR ESTIMATE (CALCULATED) > 59 mL/min/
[2016-09-17 04:46] LABS: UREA NITROGEN (BUN) 46 mg/dL (9-23)
[2016-09-17 06:04] LABS: POINT-OF-CARE METER ID UU14174217
[2016-09-17 12:34] LABS: POINT-OF-CARE METER ID UU14174217
[2016-09-17 17:31] LABS: POINT-OF-CARE METER ID UU14208751
[2016-09-18] VITALS (10 sets, daily range): BP systolic 0–159; BP diastolic 0–92
[2016-09-18 01:51] LABS: POINT-OF-CARE METER ID UU13113748; POINT-OF-CARE USER ID PHATLC
[2016-09-18 04:21] LABS: EOSINOPHIL (%) 4.3 % (0-5); EOSINOPHIL COUNT 0.2 K/uL (0-0.3); HEMATOCRIT 23.3 % (38.0-50.0); IMMATURE GRANULOCYTE (%) 0.7 % (0.0-0.7); LYMPHOCYTE COUNT 0.9 K/uL (1.0-2.8); MCH 26.3 PG (29.0-34.0); MCHC 30.5 G/DL (30.0-36.0); MCV 86.3 FL (86-99); MONOCYTE (%) 9.2 % (3-12); MONOCYTE COUNT 0.5 K/uL (0-0.8); PLATELET COUNT 263 K/uL (156-360); RBC DIS.WIDTH-CV 15.9 % (11.8-14.6); RBC DIS.WIDTH-SD 49.9 % (39-53); WHITE BLOOD COUNT 5.6 K/uL (4.1-10.2)
[2016-09-18 04:43] LABS: CHLORIDE 108 mEq/L (99-109); POTASSIUM 3.8 mEq/L (3.7-5.4); SODIUM 148 mEq/L (136-147)
[2016-09-18 04:44] LABS: MAGNESIUM 1.7 mg/dL (1.3-2.7)
[2016-09-18 04:45] LABS: GLUCOSE 171 mg/dL (70-99)
[2016-09-18 04:47] LABS: ANION GAP 8 MEQ/L (2-14)
[2016-09-18 04:49] LABS: GFR ESTIMATE (CALCULATED) > 59 mL/min/
[2016-09-18 04:50] LABS: UREA NITROGEN (BUN) 34 mg/dL (9-23)
[2016-09-18 06:04] LABS: POINT-OF-CARE METER ID UU14208751; POINT-OF-CARE USER ID PHATLC
[2016-09-18 12:34] LABS: POINT-OF-CARE METER ID UU13113748
[2016-09-18 17:05] LABS: POINT-OF-CARE METER ID UU13113748
[2016-09-19] VITALS (15 sets, daily range): BP systolic 105–167; BP diastolic 68–119
[2016-09-19 00:47] LABS: POINT-OF-CARE METER ID UU13113748
[2016-09-19 05:26] LABS: POINT-OF-CARE METER ID UU13113731; POINT-OF-CARE USER ID PHATLC
[2016-09-19 06:13] LABS: HEMATOCRIT 22.4 % (38.0-50.0); MCH 26.3 PG (29.0-34.0); MCHC 29.9 G/DL (30.0-36.0); MCV 87.8 FL (86-99); MEAN PLAT.VOLUME 9.2 uM^3 (9.0-12.4); PLATELET COUNT 316 K/uL (156-360); RBC DIS.WIDTH-CV 16.1 % (11.8-14.6); RBC DIS.WIDTH-SD 51.8 % (39-53); RED BLOOD COUNT 2.55 M/uL (4.00-5.50); WHITE BLOOD COUNT 5.5 K/uL (4.1-10.2)
[2016-09-19 06:25] LABS: EOSINOPHIL (%) 4.6 % (0-5); EOSINOPHIL COUNT 0.3 K/uL (0-0.3); IMMATURE GRANULOCYTE (%) 0.7 % (0.0-0.7); LYMPHOCYTE COUNT 0.8 K/uL (1.0-2.8); MONOCYTE (%) 7.1 % (3-12); MONOCYTE COUNT 0.4 K/uL (0-0.8); NEUTROPHIL (%) 73.4 % (45-76)
[2016-09-19 06:41] LABS: ANION GAP 5 MEQ/L (2-14); CHLORIDE 109 MEQ/L (99-109); GFR ESTIMATE (CALCULATED) > 59 mL/min/; GLUCOSE 163 mg/dL (70-99); MAGNESIUM 1.8 mg/dl (1.3-2.7); POTASSIUM 4.4 MEQ/L (3.7-5.4); SAMPLE HEMOLYSIS CHECK 0; SAMPLE ICTERIC CHECK 0; SAMPLE LIPEMIA CHECK 0; SODIUM 147 MEQ/L (136-147); UREA NITROGEN (BUN) 28 mg/dL (9-23)
[2016-09-19 12:33] LABS: POINT-OF-CARE METER ID UU14208751
[2016-09-19 18:04] LABS: POINT-OF-CARE METER ID UU14208751
[2016-09-20] VITALS (9 sets, daily range): BP systolic 155–187; BP diastolic 92–131
[2016-09-20 00:25] LABS: POINT-OF-CARE METER ID UU14174217
[2016-09-20 05:20] LABS: POINT-OF-CARE METER ID UU14174217
[2016-09-20 05:58] LABS: EOSINOPHIL COUNT 0.2 K/uL (0-0.3); IMMATURE GRANULOCYTE (%) 1.2 % (0.0-0.7); IMMATURE GRANULOCYTE COUNT 0.1 K/uL; LYMPHOCYTE COUNT 0.9 K/uL (1.0-2.8); MCH 26.7 PG (29.0-34.0); MCHC 30.8 G/DL (30.0-36.0); MCV 86.7 FL (86-99); MEAN PLAT.VOLUME 8.9 uM^3 (9.0-12.4); MONOCYTE (%) 6.9 % (3-12); MONOCYTE COUNT 0.5 K/uL (0-0.8); NEUTROPHIL (%) 75.5 % (45-76); PLATELET COUNT 393 K/uL (156-360); RBC DIS.WIDTH-SD 50.9 % (39-53); WHITE BLOOD COUNT 6.6 K/uL (4.1-10.2)
[2016-09-20 06:22] LABS: ANION GAP 12 MEQ/L (2-14); CHLORIDE 112 MEQ/L (99-109); GFR ESTIMATE (CALCULATED) > 59 mL/min/; GLUCOSE 142 mg/dL (70-99); MAGNESIUM 1.8 mg/dl (1.3-2.7); POTASSIUM 4.1 MEQ/L (3.7-5.4); SAMPLE HEMOLYSIS CHECK 0; SAMPLE ICTERIC CHECK 0; SAMPLE LIPEMIA CHECK 0; SODIUM 151 MEQ/L (136-147); UREA NITROGEN (BUN) 22 mg/dL (9-23)
[2016-09-20 12:24] LABS: POINT-OF-CARE METER ID UU13113731
[2016-09-21] VITALS: BP 168/90
[2016-09-21 00:22] LABS: POINT-OF-CARE METER ID UU13113731
[2016-09-21 02:00] VITALS: BP 177/94
[2016-09-21 05:41] LABS: POINT-OF-CARE METER ID UU14174217
[2016-09-21 06:13] LABS: EOSINOPHIL (%) 3.8 % (0-5); EOSINOPHIL COUNT 0.2 K/uL (0-0.3); HEMATOCRIT 26.7 % (38.0-50.0); IMMATURE GRANULOCYTE (%) 1.8 % (0.0-0.7); IMMATURE GRANULOCYTE COUNT 0.1 K/uL; INSTRUMENT ABS NEUTROPHIL CT 4.5 K/uL; LYMPHOCYTE COUNT 0.9 K/uL (1.0-2.8); MCH 28.1 PG (29.0-34.0); MCHC 32.2 G/DL (30.0-36.0); MCV 87.3 FL (86-99); MEAN PLAT.VOLUME 8.7 uM^3 (9.0-12.4); MONOCYTE (%) 8.5 % (3-12); MONOCYTE COUNT 0.5 K/uL (0-0.8); NEUTROPHIL (%) 71.7 % (45-76); NEUTROPHIL COUNT 4.5 K/uL (1.8-6.4); PLATELET COUNT 436 K/uL (156-360); RBC DIS.WIDTH-CV 16.2 % (11.8-14.6); RBC DIS.WIDTH-SD 51.9 % (39-53); RED BLOOD COUNT 3.06 M/uL (4.00-5.50); WHITE BLOOD COUNT 6.3 K/uL (4.1-10.2)
[2016-09-21 06:40] LABS: ANION GAP 9 MEQ/L (2-14); CHLORIDE 109 MEQ/L (99-109); GFR ESTIMATE (CALCULATED) > 59 mL/min/; GLUCOSE 203 mg/dL (70-99); MAGNESIUM 1.7 mg/dl (1.3-2.7); POTASSIUM 3.6 MEQ/L (3.7-5.4); SAMPLE HEMOLYSIS CHECK 0; SAMPLE ICTERIC CHECK 0; SAMPLE LIPEMIA CHECK 0; SODIUM 147 MEQ/L (136-147); UREA NITROGEN (BUN) 16 mg/dL (9-23)
[2016-09-21 08:00] VITALS: BP 159/74
[2016-09-21 12:00] VITALS: BP 157/92
[2016-09-21 12:05] LABS: POINT-OF-CARE METER ID UU14174217
[2016-09-21 16:00] VITALS: BP 150/89
[2016-09-21 17:31] LABS: POINT-OF-CARE METER ID UU14174217
[2016-09-21 20:00] VITALS: BP 163/88
[2016-09-22] VITALS: BP 164/92
[2016-09-22 00:01] LABS: POINT-OF-CARE METER ID UU14174217
[2016-09-22 04:00] VITALS: BP 164/88
[2016-09-22 05:05] LABS: POINT-OF-CARE METER ID UU14174217
[2016-09-22 05:16] LABS: EOSINOPHIL (%) 2.1 % (0-5); EOSINOPHIL COUNT 0.2 K/uL (0-0.3); HEMATOCRIT 28.1 % (38.0-50.0); IMMATURE GRANULOCYTE (%) 2.1 % (0.0-0.7); IMMATURE GRANULOCYTE COUNT 0.2 K/uL; INSTRUMENT ABS NEUTROPHIL CT 5.4 K/uL; LYMPHOCYTE COUNT 0.9 K/uL (1.0-2.8); MCH 27.3 PG (29.0-34.0); MCHC 31.7 G/DL (30.0-36.0); MCV 86.2 FL (86-99); MEAN PLAT.VOLUME 8.9 uM^3 (9.0-12.4); MONOCYTE COUNT 0.7 K/uL (0-0.8); NEUTROPHIL (%) 74.3 % (45-76); NEUTROPHIL COUNT 5.4 K/uL (1.8-6.4); PLATELET COUNT 469 K/uL (156-360); RBC DIS.WIDTH-CV 15.9 % (11.8-14.6); RBC DIS.WIDTH-SD 49.9 % (39-53); RED BLOOD COUNT 3.26 M/uL (4.00-5.50); WHITE BLOOD COUNT 7.2 K/uL (4.1-10.2)
[2016-09-22 07:14] LABS: ANION GAP 10 MEQ/L (2-14); CHLORIDE 108 MEQ/L (99-109); GFR ESTIMATE (CALCULATED) > 59 mL/min/; GLUCOSE 219 mg/dL (70-99); MAGNESIUM 1.5 mg/dl (1.3-2.7); POTASSIUM 3.5 MEQ/L (3.7-5.4); SAMPLE HEMOLYSIS CHECK 0; SAMPLE ICTERIC CHECK 0; SAMPLE LIPEMIA CHECK 0; SODIUM 145 MEQ/L (136-147); UREA NITROGEN (BUN) 12 mg/dL (9-23)
[2016-09-22 08:00] VITALS: BP 154/87
[2016-09-22 12:00] VITALS: BP 159/108
[2016-09-22 13:00] LABS: POINT-OF-CARE METER ID UU13113731
[2016-09-22 13:31] LABS: POINT-OF-CARE METER ID UU14162636
[2016-09-22 16:00] VITALS: BP 153/87
[2016-09-22 17:55] LABS: POINT-OF-CARE METER ID UU14162636
[2016-09-22 20:00] VITALS: BP 135/77
[2016-09-22 23:58] LABS: POINT-OF-CARE METER ID UU14174217
[2016-09-23] VITALS: BP 141/75
[2016-09-23 03:54] LABS: EOSINOPHIL (%) 2.3 % (0-5); EOSINOPHIL COUNT 0.2 K/uL (0-0.3); HEMATOCRIT 26.2 % (38.0-50.0); IMMATURE GRANULOCYTE (%) 2.3 % (0.0-0.7); IMMATURE GRANULOCYTE COUNT 0.2 K/uL; INSTRUMENT ABS NEUTROPHIL CT 4.3 K/uL; LYMPHOCYTE COUNT 1.2 K/uL (1.0-2.8); MCH 26.9 PG (29.0-34.0); MCHC 31.7 G/DL (30.0-36.0); MCV 84.8 FL (86-99); MEAN PLAT.VOLUME 8.5 uM^3 (9.0-12.4); MONOCYTE (%) 9.8 % (3-12); MONOCYTE COUNT 0.6 K/uL (0-0.8); NEUTROPHIL (%) 67.2 % (45-76); NEUTROPHIL COUNT 4.3 K/uL (1.8-6.4); PLATELET COUNT 459 K/uL (156-360); RED BLOOD COUNT 3.09 M/uL (4.00-5.50); WHITE BLOOD COUNT 6.5 K/uL (4.1-10.2)
[2016-09-23 04:00] VITALS: BP 125/75
[2016-09-23 04:05] LABS: CHLORIDE 109 mEq/L (99-109); POTASSIUM 3.1 mEq/L (3.7-5.4); SODIUM 143 mEq/L (136-147)
[2016-09-23 04:06] LABS: MAGNESIUM 1.6 mg/dL (1.3-2.7)
[2016-09-23 04:08] LABS: GLUCOSE 182 mg/dL (70-99)
[2016-09-23 04:09] LABS: ANION GAP 8 MEQ/L (2-14)
[2016-09-23 04:10] LABS: TOTAL BILIRUBIN 0.4 mg/dL (0.0-1.0)
[2016-09-23 04:12] LABS: ALKALINE PHOSPHATASE 82 IU/L (3-129); GFR ESTIMATE (CALCULATED) > 59 mL/min/
[2016-09-23 04:13] LABS: UREA NITROGEN (BUN) 12 mg/dL (9-23)
[2016-09-23 06:19] LABS: POINT-OF-CARE METER ID UU13113731
[2016-09-23 08:00] VITALS: BP 143/75
[2016-09-23 12:00] VITALS: BP 127/73
[2016-09-23 12:36] LABS: POINT-OF-CARE METER ID UU13113731
[2016-09-23 16:00] VITALS: BP 134/76
[2016-09-23 17:50] LABS: POINT-OF-CARE METER ID UU13113731
[2016-09-23 20:00] VITALS: BP 141/85
[2016-09-24] VITALS: BP 139/84
[2016-09-24 00:41] LABS: POINT-OF-CARE METER ID UU14174217
[2016-09-24 04:00] VITALS: BP 150/83
[2016-09-24 05:26] LABS: HEMATOCRIT 27.9 % (38.0-50.0); MCH 26.8 PG (29.0-34.0); MCHC 31.2 G/DL (30.0-36.0); MCV 85.8 FL (86-99); RBC DIS.WIDTH-SD 49.6 % (39-53); RED BLOOD COUNT 3.25 M/uL (4.00-5.50)
[2016-09-24 05:59] LABS: ANION GAP 9 MEQ/L (2-14); CHLORIDE 109 MEQ/L (99-109); GFR ESTIMATE (CALCULATED) > 59 mL/min/; GLUCOSE 166 mg/dL (70-99); POTASSIUM 3.3 MEQ/L (3.7-5.4); SAMPLE HEMOLYSIS CHECK 0; SAMPLE ICTERIC CHECK 0; SAMPLE LIPEMIA CHECK 0; SODIUM 143 MEQ/L (136-147); UREA NITROGEN (BUN) 18 mg/dL (9-23)
[2016-09-24 06:28] LABS: ABS NEUTROPHIL COUNT 5.7; ANISOCYTOSIS 1+; BAND NEUTROPHILS 2.6 % (0-8.0); EOSINOPHIL ABS CT 0.1; EOSINOPHILS 1.7 % (0-5.0); HYPOCHROMASIA 1+; INSTRUMENT ABS NEUTROPHIL CT 4.6 K/uL; LYMPHOCYTES 7.1 % (15.0-45.0); METAMYELOCYTES 1.8 %; MYELOCYTES 1.8 %; PLAT.SUFFICIENCY INCREASED; POLYCHROMASIA 1+; SEG.NEUTROPHILS 78.8 % (46.0-76.0); SMUDGE CELLS 16.8
[2016-09-24 08:00] VITALS: BP 153/87
[2016-09-24 11:41] LABS: POINT-OF-CARE METER ID UU14174217
[2016-09-24 12:00] VITALS: BP 134/81
[2016-09-24 16:00] VITALS: BP 143/82
[2016-09-24 17:05] LABS: POINT-OF-CARE METER ID UU14174217
[2016-09-25 00:37] LABS: POINT-OF-CARE METER ID UU13113748
[2016-09-25 05:39] LABS: HEMATOCRIT 26.5 % (38.0-50.0); MCH 27.3 PG (29.0-34.0); MCHC 31.7 G/DL (30.0-36.0); MEAN PLAT.VOLUME 9.1 uM^3 (9.0-12.4); PLATELET COUNT 521 K/uL (156-360); RBC DIS.WIDTH-CV 16.6 % (11.8-14.6); RBC DIS.WIDTH-SD 51.4 % (39-53); RED BLOOD COUNT 3.08 M/uL (4.00-5.50); WHITE BLOOD COUNT 8.3 K/uL (4.1-10.2)
[2016-09-25 06:02] LABS: POINT-OF-CARE METER ID UU13113748
[2016-09-25 06:07] LABS: ALKALINE PHOSPHATASE 76 IU/L (3-129); ANION GAP 7 MEQ/L (2-14); CHLORIDE 109 MEQ/L (99-109); GFR ESTIMATE (CALCULATED) > 59 mL/min/; GLUCOSE 181 mg/dL (70-99); MAGNESIUM 1.7 mg/dl (1.3-2.7); SAMPLE HEMOLYSIS CHECK 0; SAMPLE ICTERIC CHECK 0; SAMPLE LIPEMIA CHECK 0; SODIUM 142 MEQ/L (136-147); TOTAL BILIRUBIN 0.4 MG/DL (0.0-1.0); UREA NITROGEN (BUN) 21 mg/dL (9-23)
[2016-09-25 06:12] LABS: POTASSIUM 4.3 MEQ/L (3.7-5.4)
[2016-09-25 07:55] LABS: ABS NEUTROPHIL COUNT 6.6; ANISOCYTOSIS 1+; BAND NEUTROPHILS 12.2 % (0-8.0); EOSINOPHIL ABS CT 0; INSTRUMENT ABS NEUTROPHIL CT 5.3 K/uL; LYMPHOCYTES 10.4 % (15.0-45.0); MACROCYTES 1+; MYELOCYTES 1.7 %; PLAT.SUFFICIENCY INCREASED; SEG.NEUTROPHILS 67.9 % (46.0-76.0)
[2016-09-25 08:00] VITALS: BP 133/87
[2016-09-25 09:16] LABS: VANCOMYCIN, TROUGH 36.3 MCG/ML (10-20)
[2016-09-25 12:00] VITALS: BP 154/93
[2016-09-25 12:11] LABS: POINT-OF-CARE METER ID UU14208751
[2016-09-25 16:00] VITALS: BP 153/91
[2016-09-25 17:37] LABS: POINT-OF-CARE METER ID UU14208751
[2016-09-26 00:17] LABS: POINT-OF-CARE METER ID UU14208751
[2016-09-26 05:13] LABS: POINT-OF-CARE METER ID UU14208751
[2016-09-26 05:35] LABS: HEMATOCRIT 29.8 % (38.0-50.0); MCH 27.2 PG (29.0-34.0); MCHC 31.9 G/DL (30.0-36.0); MCV 85.4 FL (86-99); MEAN PLAT.VOLUME 9.4 uM^3 (9.0-12.4); PLATELET COUNT 543 K/uL (156-360); RBC DIS.WIDTH-CV 16.5 % (11.8-14.6); RBC DIS.WIDTH-SD 51.3 % (39-53); RED BLOOD COUNT 3.49 M/uL (4.00-5.50); WHITE BLOOD COUNT 11.5 K/uL (4.1-10.2)
[2016-09-26 05:59] LABS: ALKALINE PHOSPHATASE 89 IU/L (3-129); ANION GAP 8 MEQ/L (2-14); CHLORIDE 108 MEQ/L (99-109); GFR ESTIMATE (CALCULATED) > 59 mL/min/; GLUCOSE 210 mg/dL (70-99); POTASSIUM 4.1 MEQ/L (3.7-5.4); SAMPLE HEMOLYSIS CHECK 0; SAMPLE ICTERIC CHECK 0; SAMPLE LIPEMIA CHECK 0; SODIUM 142 MEQ/L (136-147); TOTAL BILIRUBIN 0.4 MG/DL (0.0-1.0); UREA NITROGEN (BUN) 30 mg/dL (9-23)
[2016-09-26 07:17] LABS: ABS NEUTROPHIL COUNT 9.7; ANISOCYTOSIS 1+; ATYPICAL LYMPHOCYTE 0.9 %; BAND NEUTROPHILS 5.4 % (0-8.0); EOSINOPHIL ABS CT 0; INSTRUMENT ABS NEUTROPHIL CT 7.6 K/uL; LYMPHOCYTES 6.2 % (15.0-45.0); MYELOCYTES 1.8 %; PLAT.SUFFICIENCY INCREASED; POLYCHROMASIA 1+; SEG.NEUTROPHILS 78.6 % (46.0-76.0)
[2016-09-26 08:00] VITALS: BP 158/96
[2016-09-26 12:00] VITALS: BP 151/87
[2016-09-26 13:45] LABS: POINT-OF-CARE METER ID UU14174217
[2016-09-26 14:00] VITALS: BP 164/91
[2016-09-26 16:00] VITALS: BP 135/82
[2016-09-26 16:47] LABS: POINT-OF-CARE METER ID UU14174217
[2016-09-26 18:00] VITALS: BP 138/83
[2016-09-26 20:00] VITALS: BP 153/86
[2016-09-26 23:44] LABS: POINT-OF-CARE METER ID UU14174217
[2016-09-27] VITALS: BP 127/77
[2016-09-27 04:00] VITALS: BP 132/78
[2016-09-27 05:24] LABS: POINT-OF-CARE METER ID UU14162636
[2016-09-27 05:41] LABS: BASE EXCESS 4.7 mEq/L (-3 to +3); BICARBONATE 27.4 mEq/L (22-26); CARBOXY HGB 1.8 % (0-5); METHEMOGLOBIN 1.9 % (0-1.5); pH 7.54 (7.35-7.45)
[2016-09-27 05:42] LABS: COMMENTS - BLOOD GASES C+; DEVICE VENT; FI02 24 %; MECHANICAL RATE 16 resp/min; MODE AC+; PCO2 32 mm Hg (35-45); PO2 68 mm Hg (80-100); SITE RR; TIDAL VOLUME 500 ML; TOTAL RESP RATE 19 resp/min
[2016-09-27 05:43] LABS: HEMATOCRIT 25.3 % (38.0-50.0); MCH 27.5 PG (29.0-34.0); MCV 85.8 FL (86-99); MEAN PLAT.VOLUME 9.6 uM^3 (9.0-12.4); NRBC (%) 0.2 /100 WBC (0-0); PLATELET COUNT 443 K/uL (156-360); RBC DIS.WIDTH-CV 16.7 % (11.8-14.6); RBC DIS.WIDTH-SD 51.8 % (39-53); RED BLOOD COUNT 2.95 M/uL (4.00-5.50); WHITE BLOOD COUNT 12.8 K/uL (4.1-10.2)
[2016-09-27 05:44] LABS: PEEP 5 CM/H20
[2016-09-27 06:10] LABS: ALKALINE PHOSPHATASE 95 IU/L (3-129); ANION GAP 8 MEQ/L (2-14); CHLORIDE 107 MEQ/L (99-109); GFR ESTIMATE (CALCULATED) > 59 mL/min/; GLUCOSE 270 mg/dL (70-99); SAMPLE HEMOLYSIS CHECK 0; SAMPLE ICTERIC CHECK 0; SAMPLE LIPEMIA CHECK 0; SODIUM 140 MEQ/L (136-147); TOTAL BILIRUBIN 0.4 MG/DL (0.0-1.0); UREA NITROGEN (BUN) 38 mg/dL (9-23)
[2016-09-27 06:50] LABS: ABS NEUTROPHIL COUNT 9.4; BAND NEUTROPHILS 2.6 % (0-8.0); EOSINOPHIL ABS CT 0; HYPOCHROMASIA 1+; INSTRUMENT ABS NEUTROPHIL CT 8.1 K/uL; METAMYELOCYTES 2.6 %; MICROCYTOSIS 1+; PLAT.SUFFICIENCY INCREASED; POIKILOCYTOSIS 1+; SEG.NEUTROPHILS 71.1 % (46.0-76.0)
[2016-09-27 08:00] VITALS: BP 145/81
[2016-09-27 12:00] VITALS: BP 133/73
[2016-09-27 12:26] LABS: POINT-OF-CARE METER ID UU14174217
[2016-09-27 16:00] VITALS: BP 135/75
[2016-09-27 18:31] LABS: POINT-OF-CARE METER ID UU14162636
[2016-09-27 20:00] VITALS: BP 147/83
[2016-09-28] VITALS: BP 119/69
[2016-09-28 00:28] LABS: POINT-OF-CARE METER ID UU13113731
[2016-09-28 04:00] VITALS: BP 117/71
[2016-09-28 05:39] LABS: HEMATOCRIT 24.1 % (38.0-50.0); MCH 26.8 PG (29.0-34.0); MCHC 31.5 G/DL (30.0-36.0); MCV 84.9 FL (86-99); MEAN PLAT.VOLUME 9.8 uM^3 (9.0-12.4); PLATELET COUNT 396 K/uL (156-360); RBC DIS.WIDTH-CV 16.6 % (11.8-14.6); RBC DIS.WIDTH-SD 52.2 % (39-53); RED BLOOD COUNT 2.84 M/uL (4.00-5.50); WHITE BLOOD COUNT 16.5 K/uL (4.1-10.2)
[2016-09-28 06:04] LABS: POINT-OF-CARE METER ID UU13113731
[2016-09-28 06:44] LABS: ALKALINE PHOSPHATASE 95 IU/L (3-129); ANION GAP 6 MEQ/L (2-14); CHLORIDE 106 MEQ/L (99-109); GFR ESTIMATE (CALCULATED) > 59 mL/min/; GLUCOSE 301 mg/dL (70-99); POTASSIUM 4.1 MEQ/L (3.7-5.4); SAMPLE HEMOLYSIS CHECK 0; SAMPLE ICTERIC CHECK 0; SAMPLE LIPEMIA CHECK 0; SODIUM 139 MEQ/L (136-147); TOTAL BILIRUBIN 0.4 MG/DL (0.0-1.0); UREA NITROGEN (BUN) 32 mg/dL (9-23)
[2016-09-28 06:48] LABS: VANCOMYCIN, TROUGH 10.2 MCG/ML (10-20)
[2016-09-28 07:06] LABS: ABS NEUTROPHIL COUNT 14.2; ANISOCYTOSIS 1+; BASOPHILS 1.8 %; EOSINOPHIL ABS CT 0; INSTRUMENT ABS NEUTROPHIL CT 11.9 K/uL; LYMPHOCYTES 5.2 % (15.0-45.0); METAMYELOCYTES 1.7 %; MYELOCYTES 1.7 %; NUCLEATED RBC'S 0.9; PLAT.SUFFICIENCY INCREASED; SEG.NEUTROPHILS 79.1 % (46.0-76.0)
[2016-09-28 08:00] VITALS: BP 124/72
[2016-09-28 09:41] LABS: POINT-OF-CARE METER ID UU13113731
[2016-09-28 11:48] LABS: POINT-OF-CARE METER ID UU14162636
[2016-09-28 12:00] VITALS: BP 129/77
[2016-09-28 16:00] VITALS: BP 127/73
[2016-09-28 18:01] LABS: POINT-OF-CARE METER ID UU14162636
[2016-09-28 20:00] VITALS: BP 131/73
[2016-09-29] VITALS: BP 146/85
[2016-09-29 00:27] LABS: POINT-OF-CARE METER ID UU14162636
[2016-09-29 04:00] VITALS: BP 133/71
[2016-09-29 06:07] LABS: HEMATOCRIT 23.7 % (38.0-50.0); MCH 27.3 PG (29.0-34.0); MCHC 32.1 G/DL (30.0-36.0); MCV 85.3 FL (86-99); PLATELET COUNT 340 K/uL (156-360); RBC DIS.WIDTH-CV 16.4 % (11.8-14.6); RBC DIS.WIDTH-SD 51.4 % (39-53); RED BLOOD COUNT 2.78 M/uL (4.00-5.50); WHITE BLOOD COUNT 11.2 K/uL (4.1-10.2)
[2016-09-29 06:13] LABS: POINT-OF-CARE METER ID UU13113748
[2016-09-29 07:08] LABS: ABS NEUTROPHIL COUNT 8.6; ANISOCYTOSIS 1+; BAND NEUTROPHILS 3.6 % (0-8.0); EOSINOPHIL ABS CT 0; INSTRUMENT ABS NEUTROPHIL CT 7.3 K/uL; LYMPHOCYTES 7.1 % (15.0-45.0); PLAT.SUFFICIENCY ADEQUATE; SEG.NEUTROPHILS 73.2 % (46.0-76.0)
[2016-09-29 07:09] LABS: ALKALINE PHOSPHATASE 106 IU/L (3-129); ANION GAP 7 MEQ/L (2-14); CHLORIDE 106 MEQ/L (99-109); GFR ESTIMATE (CALCULATED) > 59 mL/min/; GLUCOSE 240 mg/dL (70-99); POTASSIUM 4.3 MEQ/L (3.7-5.4); SAMPLE HEMOLYSIS CHECK 0; SAMPLE ICTERIC CHECK 0; SAMPLE LIPEMIA CHECK 0; SODIUM 138 MEQ/L (136-147); UREA NITROGEN (BUN) 28 mg/dL (9-23)
[2016-09-29 07:10] LABS: TOTAL BILIRUBIN 0.3 MG/DL (0.0-1.0)
[2016-09-29 08:00] VITALS: BP 123/71
[2016-09-29 12:00] VITALS: BP 126/73
[2016-09-29 13:21] LABS: POINT-OF-CARE METER ID UU14208751
[2016-09-29 16:00] VITALS: BP 125/76
[2016-09-29 18:33] LABS: POINT-OF-CARE METER ID UU14208751
[2016-09-29 20:00] VITALS: BP 132/72
[2016-09-30] VITALS (9 sets, daily range): BP systolic 0–142; BP diastolic 0–87
[2016-09-30 00:57] LABS: POINT-OF-CARE METER ID UU14208751
[2016-09-30 06:13] LABS: POINT-OF-CARE METER ID UU14208751
[2016-09-30 06:40] LABS: HEMATOCRIT 26.4 % (38.0-50.0); MCH 26.9 PG (29.0-34.0); MCHC 32.2 G/DL (30.0-36.0); MCV 83.5 FL (86-99); MEAN PLAT.VOLUME 10.7 uM^3 (9.0-12.4); RBC DIS.WIDTH-CV 16.2 % (11.8-14.6); RBC DIS.WIDTH-SD 49.4 % (39-53); RED BLOOD COUNT 3.16 M/uL (4.00-5.50)
[2016-09-30 06:45] LABS: ANION GAP 8 MEQ/L (2-14); CHLORIDE 102 MEQ/L (99-109); GFR ESTIMATE (CALCULATED) > 59 mL/min/; GLUCOSE 147 mg/dL (70-99); POTASSIUM 4.3 MEQ/L (3.7-5.4); SAMPLE HEMOLYSIS CHECK 0; SAMPLE ICTERIC CHECK 0; SAMPLE LIPEMIA CHECK 0; SODIUM 135 MEQ/L (136-147); UREA NITROGEN (BUN) 39 mg/dL (9-23)
[2016-09-30 06:51] LABS: ALKALINE PHOSPHATASE 171 IU/L (3-129); TOTAL BILIRUBIN 0.4 MG/DL (0.0-1.0)
[2016-09-30 07:01] LABS: PLATELET COUNT 458 K/uL (156-360)
[2016-09-30 12:32] LABS: POINT-OF-CARE METER ID UU14208751
[2016-09-30 14:00] LABS: ADD MIUA? YES; BILIRUBIN NEGATIVE; BLOOD SMALL; COLOR YELLOW ((YELLOW)); GLUCOSE (STRIP) NEGATIVE; KETONES NEGATIVE; LEUKOCYTES LARGE; NITRITE NEGATIVE; PROTEIN (STRIP) 30; SPECIFIC GRAVITY 1.011 (1.000-1.030); UROBILINOGEN 0.2 MG/DL (0.2-1.0)
[2016-09-30 14:05] LABS: BACTERIA RARE /HPF; BUDDING YEAST 1+; EPITHELIAL CELLS RARE /HPF; MUCUS TRACE /LPF; RED BLOOD CELLS 30-40 /HPF (0-5); UCUL ADDED? YES; WHITE BLOOD CELLS TNTC /HPF (0-5)
[2016-09-30 17:30] LABS: POINT-OF-CARE METER ID UU14208751
[2016-09-30 23:22] LABS: C DIFF TOXIN NEGATIVE (NEGATIVE)
[2016-09-30 23:23] LABS: PROBE CHECK PASS; SPECIMEN PROCESSING CONTROL PASS
[2016-10-01] VITALS (7 sets, daily range): BP systolic 111–138; BP diastolic 67–84
[2016-10-01 00:56] LABS: POINT-OF-CARE METER ID UU14208751
[2016-10-01 06:08] LABS: POINT-OF-CARE METER ID UU13113748
[2016-10-01 12:20] LABS: POINT-OF-CARE METER ID UU13113748; POINT-OF-CARE USER ID AGYTJR
[2016-10-01 17:37] LABS: POINT-OF-CARE METER ID UU13113748; POINT-OF-CARE USER ID AGYTJR
[2016-10-02] VITALS: BP 117/74
[2016-10-02 00:52] LABS: POINT-OF-CARE METER ID UU13113748
[2016-10-02 04:00] VITALS: BP 126/77
[2016-10-02 05:55] LABS: HEMATOCRIT 24.9 % (38.0-50.0); MCH 26.1 PG (29.0-34.0); MCHC 30.5 G/DL (30.0-36.0); MCV 85.6 FL (86-99); MEAN PLAT.VOLUME 10.7 uM^3 (9.0-12.4); PLATELET COUNT 412 K/uL (156-360); RBC DIS.WIDTH-SD 50.4 % (39-53); RED BLOOD COUNT 2.91 M/uL (4.00-5.50); WHITE BLOOD COUNT 14.6 K/uL (4.1-10.2)
[2016-10-02 06:29] LABS: POINT-OF-CARE METER ID UU13113748
[2016-10-02 06:32] LABS: ANION GAP 8 MEQ/L (2-14); CHLORIDE 106 MEQ/L (99-109); GFR ESTIMATE (CALCULATED) > 59 mL/min/; POTASSIUM 4.6 MEQ/L (3.7-5.4); SAMPLE HEMOLYSIS CHECK 0; SAMPLE ICTERIC CHECK 0; SAMPLE LIPEMIA CHECK 0; SODIUM 136 MEQ/L (136-147); UREA NITROGEN (BUN) 47 mg/dL (9-23)
[2016-10-02 06:37] LABS: GLUCOSE 97 mg/dL (70-99)
[2016-10-02 08:00] VITALS: BP 127/74
[2016-10-02 12:00] VITALS: BP 128/79
[2016-10-02 12:20] LABS: POINT-OF-CARE METER ID UU13113748; POINT-OF-CARE USER ID AGYTJR
[2016-10-02 16:00] VITALS: BP 131/78
[2016-10-02 18:08] LABS: POINT-OF-CARE METER ID UU14174217; POINT-OF-CARE USER ID AGYTJR
[2016-10-02 20:00] VITALS: BP 130/78
[2016-10-02 23:49] LABS: POINT-OF-CARE METER ID UU14174217
[2016-10-03] VITALS (8 sets, daily range): BP systolic 0–155; BP diastolic 0–85
[2016-10-03 06:04] LABS: POINT-OF-CARE METER ID UU13113731
[2016-10-03 13:25] LABS: POINT-OF-CARE METER ID UU13113731; POINT-OF-CARE USER ID AGYTJR
[2016-10-03 16:48] LABS: POINT-OF-CARE METER ID UU14208751; POINT-OF-CARE USER ID AGYTJR
[2016-10-04] VITALS (15 sets, daily range): BP systolic 113–138; BP diastolic 66–94
[2016-10-04 00:57] LABS: POINT-OF-CARE METER ID UU13113748
[2016-10-04 06:09] LABS: HEMATOCRIT 20.3 % (38.0-50.0); MCH 26.6 PG (29.0-34.0); MCHC 31.5 G/DL (30.0-36.0); MCV 84.2 FL (86-99); MEAN PLAT.VOLUME 9.9 uM^3 (9.0-12.4); PLATELET COUNT 485 K/uL (156-360); RBC DIS.WIDTH-CV 16.3 % (11.8-14.6); RBC DIS.WIDTH-SD 50.5 % (39-53); RED BLOOD COUNT 2.41 M/uL (4.00-5.50); WHITE BLOOD COUNT 15.8 K/uL (4.1-10.2)
[2016-10-04 06:23] LABS: ANION GAP 9 MEQ/L (2-14); CHLORIDE 107 MEQ/L (99-109); GFR ESTIMATE (CALCULATED) > 59 mL/min/; GLUCOSE 129 mg/dL (70-99); SAMPLE HEMOLYSIS CHECK 0; SAMPLE ICTERIC CHECK 0; SAMPLE LIPEMIA CHECK 0; SODIUM 139 MEQ/L (136-147); UREA NITROGEN (BUN) 40 mg/dL (9-23)
[2016-10-04 11:52] LABS: POINT-OF-CARE METER ID UU14162636
[2016-10-04 14:09] LABS: IRON 13 MCG/DL (35-150)
[2016-10-04 17:42] LABS: POINT-OF-CARE METER ID UU14162636
[2016-10-04 21:20] LABS: POINT-OF-CARE METER ID UU14162636
[2016-10-05] VITALS (8 sets, daily range): BP systolic 124–153; BP diastolic 67–91
[2016-10-05 00:40] LABS: POINT-OF-CARE METER ID UU14162636
[2016-10-05 05:23] LABS: POINT-OF-CARE METER ID UU13113731
[2016-10-05 05:55] LABS: HEMATOCRIT 28.8 % (38.0-50.0); MCH 27.3 PG (29.0-34.0); MCHC 32.6 G/DL (30.0-36.0); MCV 83.7 FL (86-99); MEAN PLAT.VOLUME 10.3 uM^3 (9.0-12.4); PLATELET COUNT 491 K/uL (156-360); RBC DIS.WIDTH-CV 15.8 % (11.8-14.6); RBC DIS.WIDTH-SD 48.1 % (39-53); RED BLOOD COUNT 3.44 M/uL (4.00-5.50); WHITE BLOOD COUNT 15.6 K/uL (4.1-10.2)
[2016-10-05 06:24] LABS: ANION GAP 9 MEQ/L (2-14); CHLORIDE 104 MEQ/L (99-109); GFR ESTIMATE (CALCULATED) > 59 mL/min/; GLUCOSE 146 mg/dL (70-99); POTASSIUM 4.4 MEQ/L (3.7-5.4); SAMPLE HEMOLYSIS CHECK 0; SAMPLE ICTERIC CHECK 0; SAMPLE LIPEMIA CHECK 0; SODIUM 136 MEQ/L (136-147); UREA NITROGEN (BUN) 42 mg/dL (9-23)
[2016-10-05 12:03] LABS: POINT-OF-CARE METER ID UU13113731
[2016-10-05 18:01] LABS: POINT-OF-CARE METER ID UU13113731
[2016-10-06] VITALS (7 sets, daily range): BP systolic 130–147; BP diastolic 76–91
[2016-10-06 00:41] LABS: POINT-OF-CARE METER ID UU14162636
[2016-10-06 05:50] LABS: POINT-OF-CARE METER ID UU13113731
[2016-10-06 12:38] LABS: POINT-OF-CARE METER ID UU13113731
[2016-10-06 17:23] LABS: POINT-OF-CARE METER ID UU13113731
[2016-10-07] VITALS (8 sets, daily range): BP systolic 133–167; BP diastolic 73–98
[2016-10-07 00:30] LABS: POINT-OF-CARE METER ID UU14208751
[2016-10-07 05:24] LABS: HEMATOCRIT 29.3 % (38.0-50.0); MCH 28.1 PG (29.0-34.0); MCHC 33.1 G/DL (30.0-36.0); MCV 84.9 FL (86-99); MEAN PLAT.VOLUME 9.6 uM^3 (9.0-12.4); PLATELET COUNT 454 K/uL (156-360); RBC DIS.WIDTH-CV 15.5 % (11.8-14.6); RBC DIS.WIDTH-SD 47.5 % (39-53); RED BLOOD COUNT 3.45 M/uL (4.00-5.50); WHITE BLOOD COUNT 16.2 K/uL (4.1-10.2)
[2016-10-07 05:40] LABS: ANION GAP 8 MEQ/L (2-14); CHLORIDE 106 MEQ/L (99-109); GFR ESTIMATE (CALCULATED) > 59 mL/min/; GLUCOSE 136 mg/dL (70-99); POTASSIUM 4.1 MEQ/L (3.7-5.4); SAMPLE HEMOLYSIS CHECK 0; SAMPLE ICTERIC CHECK 0; SAMPLE LIPEMIA CHECK 0; SODIUM 139 MEQ/L (136-147); UREA NITROGEN (BUN) 46 mg/dL (9-23)
[2016-10-07 06:15] LABS: POINT-OF-CARE METER ID UU14208751
[2016-10-07 12:33] LABS: POINT-OF-CARE METER ID UU14208751
[2016-10-07 18:17] LABS: POINT-OF-CARE METER ID UU14208751
[2016-10-08] VITALS: BP 150/84
[2016-10-08 00:34] LABS: POINT-OF-CARE METER ID UU14162636
[2016-10-08 04:00] VITALS: BP 140/77
[2016-10-08 05:37] LABS: BASOPHIL COUNT 0.1 K/uL (0-0.1); EOSINOPHIL (%) 1.9 % (0-5); EOSINOPHIL COUNT 0.3 K/uL (0-0.3); HEMATOCRIT 26.8 % (38.0-50.0); IMMATURE GRANULOCYTE (%) 1.9 % (0.0-0.7); IMMATURE GRANULOCYTE COUNT 0.3 K/uL; INSTRUMENT ABS NEUTROPHIL CT 10.7 K/uL; LYMPHOCYTE COUNT 1.2 K/uL (1.0-2.8); MCH 27.9 PG (29.0-34.0); MCHC 33.2 G/DL (30.0-36.0); MEAN PLAT.VOLUME 9.3 uM^3 (9.0-12.4); MONOCYTE (%) 7.2 % (3-12); NEUTROPHIL (%) 79.6 % (45-76); NEUTROPHIL COUNT 10.7 K/uL (1.8-6.4); PLATELET COUNT 385 K/uL (156-360); RBC DIS.WIDTH-CV 15.3 % (11.8-14.6); RBC DIS.WIDTH-SD 46.2 % (39-53); RED BLOOD COUNT 3.19 M/uL (4.00-5.50); WHITE BLOOD COUNT 13.4 K/uL (4.1-10.2)
[2016-10-08 06:02] LABS: ANION GAP 8 MEQ/L (2-14); CHLORIDE 104 MEQ/L (99-109); GFR ESTIMATE (CALCULATED) > 59 mL/min/; GLUCOSE 150 mg/dL (70-99); POTASSIUM 3.7 MEQ/L (3.7-5.4); SAMPLE HEMOLYSIS CHECK 0; SAMPLE ICTERIC CHECK 0; SAMPLE LIPEMIA CHECK 0; SODIUM 135 MEQ/L (136-147); UREA NITROGEN (BUN) 43 mg/dL (9-23)
[2016-10-08 06:09] LABS: POINT-OF-CARE METER ID UU14174217
[2016-10-08 08:00] VITALS: BP 156/84
[2016-10-08 12:00] VITALS: BP 145/89
[2016-10-08 12:15] LABS: POINT-OF-CARE METER ID UU13113748
[2016-10-08 16:00] VITALS: BP 155/92
[2016-10-08 17:37] LABS: POINT-OF-CARE METER ID UU14208751; POINT-OF-CARE USER ID 606021424
[2016-10-08 20:00] VITALS: BP 171/97
[2016-10-09] VITALS (8 sets, daily range): BP systolic 136–155; BP diastolic 76–92
[2016-10-09 01:32] LABS: POINT-OF-CARE METER ID UU14174217
[2016-10-09 06:04] LABS: BASOPHIL COUNT 0.1 K/uL (0-0.1); EOSINOPHIL (%) 2.3 % (0-5); EOSINOPHIL COUNT 0.3 K/uL (0-0.3); HEMATOCRIT 28.4 % (38.0-50.0); IMMATURE GRANULOCYTE (%) 2.1 % (0.0-0.7); IMMATURE GRANULOCYTE COUNT 0.2 K/uL; INSTRUMENT ABS NEUTROPHIL CT 8.8 K/uL; LYMPHOCYTE COUNT 1.3 K/uL (1.0-2.8); MCH 27.2 PG (29.0-34.0); MCHC 32.4 G/DL (30.0-36.0); MEAN PLAT.VOLUME 9.5 uM^3 (9.0-12.4); MONOCYTE (%) 8.3 % (3-12); NEUTROPHIL (%) 75.6 % (45-76); NEUTROPHIL COUNT 8.8 K/uL (1.8-6.4); PLATELET COUNT 367 K/uL (156-360); RBC DIS.WIDTH-CV 15.2 % (11.8-14.6); RBC DIS.WIDTH-SD 45.9 % (39-53); RED BLOOD COUNT 3.38 M/uL (4.00-5.50); WHITE BLOOD COUNT 11.7 K/uL (4.1-10.2)
[2016-10-09 06:34] LABS: ANION GAP 8 MEQ/L (2-14); CHLORIDE 104 MEQ/L (99-109); GFR ESTIMATE (CALCULATED) > 59 mL/min/; GLUCOSE 173 mg/dL (70-99); POTASSIUM 3.9 MEQ/L (3.7-5.4); SAMPLE HEMOLYSIS CHECK 0; SAMPLE ICTERIC CHECK 0; SAMPLE LIPEMIA CHECK 0; SODIUM 138 MEQ/L (136-147); UREA NITROGEN (BUN) 37 mg/dL (9-23)
[2016-10-09 12:24] LABS: POINT-OF-CARE METER ID UU14174217
[2016-10-09 18:27] LABS: POINT-OF-CARE METER ID UU14174217
[2016-10-09 23:48] LABS: POINT-OF-CARE METER ID UU14174217
[2016-10-10] VITALS (8 sets, daily range): BP systolic 136–189; BP diastolic 81–103
[2016-10-10 05:26] LABS: BASOPHIL COUNT 0.1 K/uL (0-0.1); EOSINOPHIL (%) 2.4 % (0-5); EOSINOPHIL COUNT 0.3 K/uL (0-0.3); HEMATOCRIT 28.4 % (38.0-50.0); IMMATURE GRANULOCYTE (%) 1.4 % (0.0-0.7); IMMATURE GRANULOCYTE COUNT 0.2 K/uL; INSTRUMENT ABS NEUTROPHIL CT 10.8 K/uL; LYMPHOCYTE COUNT 1.1 K/uL (1.0-2.8); MCH 26.9 PG (29.0-34.0); MCHC 32.4 G/DL (30.0-36.0); MEAN PLAT.VOLUME 9.4 uM^3 (9.0-12.4); MONOCYTE (%) 5.6 % (3-12); MONOCYTE COUNT 0.7 K/uL (0-0.8); NEUTROPHIL COUNT 10.8 K/uL (1.8-6.4); PLATELET COUNT 393 K/uL (156-360); RBC DIS.WIDTH-SD 45.4 % (39-53); RED BLOOD COUNT 3.42 M/uL (4.00-5.50); WHITE BLOOD COUNT 13.2 K/uL (4.1-10.2)
[2016-10-10 05:45] LABS: ANION GAP 11 MEQ/L (2-14); CHLORIDE 103 MEQ/L (99-109); GFR ESTIMATE (CALCULATED) > 59 mL/min/; GLUCOSE 156 mg/dL (70-99); POTASSIUM 4.5 MEQ/L (3.7-5.4); SAMPLE HEMOLYSIS CHECK 0; SAMPLE ICTERIC CHECK 0; SAMPLE LIPEMIA CHECK 0; SODIUM 138 MEQ/L (136-147); UREA NITROGEN (BUN) 36 mg/dL (9-23)
[2016-10-10 06:10] LABS: BICARBONATE 26.8 mEq/L (22-26); CARBOXY HGB 1.6 % (0-5); COMMENTS - BLOOD GASES C+A+; DEVICE 840 VENT; FI02 30 %; METHEMOGLOBIN 1.8 % (0-1.5); MODE SPONT; PCO2 36 mm Hg (35-45); PEEP 5 CM/H20; PO2 87 mm Hg (80-100); PRES. SUPPORT 15 CM/H2O; SITE RR; TOTAL RESP RATE 27 resp/min; pH 7.48 (7.35-7.45)
[2016-10-10 06:11] LABS: BASE EXCESS 3.2 mEq/L (-3 to +3)
[2016-10-10 09:49] LABS: BASE EXCESS 1.1 mEq/L (-3 to +3); CARBOXY HGB 1.6 % (0-5); METHEMOGLOBIN 1.9 % (0-1.5); PCO2 36 mm Hg (35-45); PO2 76 mm Hg (80-100); pH 7.45 (7.35-7.45)
[2016-10-10 09:50] LABS: COMMENTS - BLOOD GASES +C; DEVICE TRACH COLLAR; FI02 28 %; SITE LR +A; TOTAL RESP RATE 40 resp/min
[2016-10-10 12:19] LABS: POINT-OF-CARE METER ID UU14174217
[2016-10-10 18:07] LABS: POINT-OF-CARE METER ID UU14174217
[2016-10-11 04:00] VITALS: BP 148/78
[2016-10-11 05:29] LABS: POINT-OF-CARE METER ID UU14162636
[2016-10-11 06:00] LABS: BASOPHIL COUNT 0.1 K/uL (0-0.1); EOSINOPHIL (%) 2.7 % (0-5); EOSINOPHIL COUNT 0.3 K/uL (0-0.3); IMMATURE GRANULOCYTE (%) 1.2 % (0.0-0.7); IMMATURE GRANULOCYTE COUNT 0.1 K/uL; INSTRUMENT ABS NEUTROPHIL CT 9.5 K/uL; MCH 26.4 PG (29.0-34.0); MCV 82.5 FL (86-99); MEAN PLAT.VOLUME 9.3 uM^3 (9.0-12.4); MONOCYTE (%) 5.6 % (3-12); MONOCYTE COUNT 0.7 K/uL (0-0.8); NEUTROPHIL (%) 81.2 % (45-76); NEUTROPHIL COUNT 9.5 K/uL (1.8-6.4); PLATELET COUNT 446 K/uL (156-360); RBC DIS.WIDTH-CV 15.1 % (11.8-14.6); RBC DIS.WIDTH-SD 45.3 % (39-53); WHITE BLOOD COUNT 11.7 K/uL (4.1-10.2)
[2016-10-11 06:04] LABS: RED BLOOD COUNT 4.24 M/uL (4.00-5.50)
[2016-10-11 06:24] LABS: ANION GAP 10 MEQ/L (2-14); CHLORIDE 99 MEQ/L (99-109); GFR ESTIMATE (CALCULATED) > 59 mL/min/; POTASSIUM 4.5 MEQ/L (3.7-5.4); SAMPLE HEMOLYSIS CHECK 0; SAMPLE ICTERIC CHECK 0; SAMPLE LIPEMIA CHECK 0; SODIUM 135 MEQ/L (136-147); UREA NITROGEN (BUN) 32 mg/dL (9-23)
[2016-10-11 06:25] LABS: GLUCOSE 73 mg/dL (70-99)
[2016-10-11 08:00] VITALS: BP 165/97
[2016-10-11 08:53] LABS: POINT-OF-CARE METER ID UU14162636
[2016-10-11 12:00] VITALS: BP 157/97
[2016-10-11 12:16] LABS: POINT-OF-CARE METER ID UU14162636
[2016-10-11 16:00] VITALS: BP 168/95
[2016-10-11 17:37] LABS: POINT-OF-CARE METER ID UU14162636
[2016-10-11 20:00] VITALS: BP 170/95
[2016-10-11 22:00] VITALS: BP 135/87
[2016-10-11 23:27] LABS: POINT-OF-CARE METER ID UU14162636
[2016-10-12] VITALS: BP 156/104
[2016-10-12 04:00] VITALS: BP 152/94
[2016-10-12 05:31] LABS: BASOPHIL COUNT 0.1 K/uL (0-0.1); EOSINOPHIL (%) 3.6 % (0-5); EOSINOPHIL COUNT 0.4 K/uL (0-0.3); HEMATOCRIT 32.9 % (38.0-50.0); IMMATURE GRANULOCYTE (%) 1.4 % (0.0-0.7); IMMATURE GRANULOCYTE COUNT 0.2 K/uL; INSTRUMENT ABS NEUTROPHIL CT 8.1 K/uL; LYMPHOCYTE COUNT 1.3 K/uL (1.0-2.8); MCH 26.3 PG (29.0-34.0); MCHC 31.9 G/DL (30.0-36.0); MCV 82.3 FL (86-99); MEAN PLAT.VOLUME 9.4 uM^3 (9.0-12.4); MONOCYTE (%) 7.5 % (3-12); MONOCYTE COUNT 0.8 K/uL (0-0.8); NEUTROPHIL (%) 75.2 % (45-76); NEUTROPHIL COUNT 8.1 K/uL (1.8-6.4); PLATELET COUNT 402 K/uL (156-360); RBC DIS.WIDTH-CV 15.1 % (11.8-14.6); RBC DIS.WIDTH-SD 45.5 % (39-53); WHITE BLOOD COUNT 10.7 K/uL (4.1-10.2)
[2016-10-12 06:13] LABS: ANION GAP 11 MEQ/L (2-14); CHLORIDE 101 MEQ/L (99-109); GFR ESTIMATE (CALCULATED) > 59 mL/min/; POTASSIUM 4.7 MEQ/L (3.7-5.4); SAMPLE HEMOLYSIS CHECK 0; SAMPLE ICTERIC CHECK 0; SAMPLE LIPEMIA CHECK 0; SODIUM 138 MEQ/L (136-147); UREA NITROGEN (BUN) 30 mg/dL (9-23)
[2016-10-12 06:15] LABS: GLUCOSE 118 mg/dL (70-99)
[2016-10-12 06:31] LABS: POINT-OF-CARE METER ID UU13113748
[2016-10-12 09:00] VITALS: BP 136/86
[2016-10-12 12:00] VITALS: BP 169/93
[2016-10-12 13:18] LABS: POINT-OF-CARE METER ID UU13113748
[2016-10-12 16:00] VITALS: BP 157/98
[2016-10-12 17:44] LABS: POINT-OF-CARE METER ID UU13113748
[2016-10-12 20:00] VITALS: BP 161/95
[2016-10-12 23:32] LABS: POINT-OF-CARE METER ID UU13113748
[2016-10-13] VITALS: BP 168/95
[2016-10-13 04:00] VITALS: BP 153/90
[2016-10-13 05:25] LABS: POINT-OF-CARE METER ID UU13113748
[2016-10-13 05:48] LABS: BASOPHIL COUNT 0.1 K/uL (0-0.1); EOSINOPHIL (%) 3.1 % (0-5); EOSINOPHIL COUNT 0.4 K/uL (0-0.3); HEMATOCRIT 32.9 % (38.0-50.0); IMMATURE GRANULOCYTE (%) 1.2 % (0.0-0.7); IMMATURE GRANULOCYTE COUNT 0.2 K/uL; LYMPHOCYTE COUNT 1.5 K/uL (1.0-2.8); MCH 27.7 PG (29.0-34.0); MCHC 33.4 G/DL (30.0-36.0); MCV 82.9 FL (86-99); MEAN PLAT.VOLUME 9.3 uM^3 (9.0-12.4); MONOCYTE (%) 8.5 % (3-12); PLATELET COUNT 360 K/uL (156-360); RBC DIS.WIDTH-CV 15.2 % (11.8-14.6); RBC DIS.WIDTH-SD 46.1 % (39-53); RED BLOOD COUNT 3.97 M/uL (4.00-5.50); WHITE BLOOD COUNT 12.1 K/uL (4.1-10.2)
[2016-10-13 06:11] LABS: ANION GAP 8 MEQ/L (2-14); CHLORIDE 101 MEQ/L (99-109); GFR ESTIMATE (CALCULATED) > 59 mL/min/; GLUCOSE 97 mg/dL (70-99); POTASSIUM 4.6 MEQ/L (3.7-5.4); SAMPLE HEMOLYSIS CHECK 0; SAMPLE ICTERIC CHECK 0; SAMPLE LIPEMIA CHECK 0; SODIUM 136 MEQ/L (136-147); UREA NITROGEN (BUN) 30 mg/dL (9-23)
[2016-10-13 08:00] VITALS: BP 151/90
[2016-10-13 12:00] VITALS: BP 133/82
[2016-10-13 12:35] LABS: POINT-OF-CARE METER ID UU13113748
[2016-10-13 16:00] VITALS: BP 130/76
[2016-10-13 18:13] LABS: POINT-OF-CARE METER ID UU13113748
[2016-10-13 20:00] VITALS: BP 145/93
[2016-10-14] VITALS: BP 108/70
[2016-10-14 00:51] LABS: POINT-OF-CARE METER ID UU13113748
[2016-10-14 04:00] VITALS: BP 128/80
[2016-10-14 05:29] LABS: POINT-OF-CARE METER ID UU13113731
[2016-10-14 05:42] LABS: BASOPHIL COUNT 0.1 K/uL (0-0.1); EOSINOPHIL COUNT 0.6 K/uL (0-0.3); IMMATURE GRANULOCYTE COUNT 0.1 K/uL; INSTRUMENT ABS NEUTROPHIL CT 7.3 K/uL; LYMPHOCYTE COUNT 1.4 K/uL (1.0-2.8); MCH 28.2 PG (29.0-34.0); MCHC 33.4 G/DL (30.0-36.0); MCV 84.3 FL (86-99); MEAN PLAT.VOLUME 9.6 uM^3 (9.0-12.4); MONOCYTE (%) 8.8 % (3-12); MONOCYTE COUNT 0.9 K/uL (0-0.8); NEUTROPHIL (%) 69.8 % (45-76); NEUTROPHIL COUNT 7.3 K/uL (1.8-6.4); PLATELET COUNT 342 K/uL (156-360); RBC DIS.WIDTH-CV 15.6 % (11.8-14.6); RBC DIS.WIDTH-SD 47.4 % (39-53); RED BLOOD COUNT 3.44 M/uL (4.00-5.50); WHITE BLOOD COUNT 10.5 K/uL (4.1-10.2)
[2016-10-14 06:08] LABS: ANION GAP 8 MEQ/L (2-14); CHLORIDE 104 MEQ/L (99-109); GFR ESTIMATE (CALCULATED) > 59 mL/min/; GLUCOSE 111 mg/dL (70-99); POTASSIUM 4.5 MEQ/L (3.7-5.4); SAMPLE HEMOLYSIS CHECK 0; SAMPLE ICTERIC CHECK 0; SAMPLE LIPEMIA CHECK 0; SODIUM 138 MEQ/L (136-147); UREA NITROGEN (BUN) 31 mg/dL (9-23)
[2016-10-14 08:00] VITALS: BP 142/88
[2016-10-14 12:00] VITALS: BP 134/99
[2016-10-14 13:14] LABS: POINT-OF-CARE METER ID UU14174217
[2016-10-14 16:00] VITALS: BP 166/90
[2016-10-14 18:28] LABS: POINT-OF-CARE METER ID UU13113803
[2016-10-14 20:00] VITALS: BP 167/97
[2016-10-15] VITALS: BP 140/84
[2016-10-15 01:03] LABS: POINT-OF-CARE METER ID UU13113803
[2016-10-15 04:00] VITALS: BP 161/103
[2016-10-15 05:53] LABS: POINT-OF-CARE METER ID UU14174217
[2016-10-15 08:00] VITALS: BP 163/97
[2016-10-15 08:37] LABS: POINT-OF-CARE METER ID UU13113803
[2016-10-15 12:00] VITALS: BP 155/93
[2016-10-15 12:56] LABS: POINT-OF-CARE METER ID UU14174217
[2016-10-15 16:00] VITALS: BP 130/88
[2016-10-15 17:29] LABS: POINT-OF-CARE METER ID UU14174217
[2016-10-15 20:00] VITALS: BP 163/99
[2016-10-16] VITALS (7 sets, daily range): BP systolic 115–178; BP diastolic 75–91
[2016-10-16 00:18] LABS: POINT-OF-CARE METER ID UU14162636
[2016-10-16 06:41] LABS: POINT-OF-CARE METER ID UU13113731
[2016-10-16 10:09] LABS: POINT-OF-CARE METER ID UU13113803
[2016-10-16 13:11] LABS: POINT-OF-CARE METER ID UU13113803
[2016-10-16 17:37] LABS: POINT-OF-CARE METER ID UU13113803
[2016-10-17] VITALS (10 sets, daily range): BP systolic 0–157; BP diastolic 0–105
[2016-10-17 00:55] LABS: POINT-OF-CARE METER ID UU13113731
[2016-10-17 06:43] LABS: POINT-OF-CARE METER ID UU14162636
[2016-10-17 10:19] LABS: ADD MIUA? YES; BILIRUBIN NEGATIVE; BLOOD SMALL; COLOR YELLOW ((YELLOW)); GLUCOSE (STRIP) 150; KETONES NEGATIVE; LEUKOCYTES LARGE; NITRITE NEGATIVE; PROTEIN (STRIP) 30; SPECIFIC GRAVITY 1.011 (1.000-1.030); UROBILINOGEN 0.2 MG/DL (0.2-1.0)
[2016-10-17 10:43] LABS: BACTERIA 1+ /HPF; EPITHELIAL CELLS NONE SEEN /HPF; MUCUS NONE SEEN /LPF; RED BLOOD CELLS 0-5 /HPF (0-5); UCUL ADDED? YES; WHITE BLOOD CELLS 20-30 /HPF (0-5); WHITE BLOOD CELLS CLUMP FEW /HPF (0-5)
[2016-10-17 13:01] LABS: POINT-OF-CARE METER ID UU13113748
[2016-10-17 18:11] LABS: POINT-OF-CARE METER ID UU13113748
[2016-10-17 22:15] LABS: POINT-OF-CARE METER ID UU13113748; POINT-OF-CARE USER ID RADDRS44
[2016-10-18] VITALS: BP 125/71
[2016-10-18 06:48] LABS: HEMATOCRIT 28.7 % (38.0-50.0); MCH 27.9 PG (29.0-34.0); MCHC 33.8 G/DL (30.0-36.0); MCV 82.5 FL (86-99); MEAN PLAT.VOLUME 9.8 uM^3 (9.0-12.4); PLATELET COUNT 270 K/uL (156-360); RBC DIS.WIDTH-CV 15.1 % (11.8-14.6); RBC DIS.WIDTH-SD 45.9 % (39-53); RED BLOOD COUNT 3.48 M/uL (4.00-5.50); WHITE BLOOD COUNT 10.3 K/uL (4.1-10.2)
[2016-10-18 07:18] LABS: ANION GAP 8 MEQ/L (2-14); CHLORIDE 98 MEQ/L (99-109); GFR ESTIMATE (CALCULATED) > 59 mL/min/; GLUCOSE 241 mg/dL (70-99); SAMPLE HEMOLYSIS CHECK 0; SAMPLE ICTERIC CHECK 0; SAMPLE LIPEMIA CHECK 0; UREA NITROGEN (BUN) 41 mg/dL (9-23)
[2016-10-18 07:19] LABS: SODIUM 131 MEQ/L (136-147)
[2016-10-18 09:48] VITALS: BP 148/81
[2016-10-18 11:29] VITALS: BP 139/79
[2016-10-18 13:22] LABS: POINT-OF-CARE METER ID UU14174225
[2016-10-18 16:20] VITALS: BP 151/84
[2016-10-18 19:24] VITALS: BP 133/77
[2016-10-19 00:01] VITALS: BP 142/73
[2016-10-19 04:25] VITALS: BP 171/80
[2016-10-19 07:44] VITALS: BP 173/91
[2016-10-19 07:57] LABS: POINT-OF-CARE METER ID UU14174225
[2016-10-19 10:25] LABS: ANION GAP 9 MEQ/L (2-14); CHLORIDE 97 MEQ/L (99-109); GFR ESTIMATE (CALCULATED) > 59 mL/min/; GLUCOSE 242 mg/dL (70-99); POTASSIUM 5.2 MEQ/L (3.7-5.4); SAMPLE HEMOLYSIS CHECK 1; SAMPLE ICTERIC CHECK 0; SAMPLE LIPEMIA CHECK 0; SODIUM 129 MEQ/L (136-147); UREA NITROGEN (BUN) 38 mg/dL (9-23)
[2016-10-19 15:54] VITALS: BP 158/86
[2016-10-19 19:54] VITALS: BP 159/91
[2016-10-19 20:28] LABS: POINT-OF-CARE METER ID UU14174225
[2016-10-20 00:51] VITALS: BP 139/77
[2016-10-20 03:41] VITALS: BP 157/89
[2016-10-20 06:24] LABS: ANION GAP 8 MEQ/L (2-14); CHLORIDE 98 MEQ/L (99-109); GFR ESTIMATE (CALCULATED) > 59 mL/min/; GLUCOSE 230 mg/dL (70-99); POTASSIUM 4.8 MEQ/L (3.7-5.4); SAMPLE HEMOLYSIS CHECK 0; SAMPLE ICTERIC CHECK 0; SAMPLE LIPEMIA CHECK 0; SODIUM 131 MEQ/L (136-147); UREA NITROGEN (BUN) 37 mg/dL (9-23)
[2016-10-20 08:53] VITALS: BP 158/74
[2016-10-20 12:12] LABS: POINT-OF-CARE METER ID UU14188625
[2016-10-20 16:08] VITALS: BP 124/68
[2016-10-20 21:09] VITALS: BP 143/81
[2016-10-20 22:11] LABS: POINT-OF-CARE METER ID UU14174225
[2016-10-21 00:41] VITALS: BP 137/80
[2016-10-21 04:12] VITALS: BP 132/83
[2016-10-21 07:20] VITALS: BP 163/85
[2016-10-21] MEDS ORDERED: TAMSULOSIN HCL0.4 MG PO (11:22)
[2016-10-21] MEDS ORDERED: LEVEMIR100 UNIT/2 SC (11:22)
[2016-10-21] MEDS ORDERED: HYDROCODON-ACE1 EAC7 GT (11:22)
[2016-10-21] MEDS ORDERED: DUONEB 2.5-0.5 M3 ML AEROSOL (11:22)
[2016-10-21] MEDS ORDERED: QUETIAPINE FUM100 MG GT (11:22)
[2016-10-21] MEDS ORDERED: AMLODIPINE BESY10 MG GT (11:22)
[2016-10-21] MEDS ORDERED: LOPRESSOR50 MG GT (11:22)
[2016-10-21] MEDS ORDERED: ASPIRIN81 M2 GT (11:22)
[2016-10-21] MEDS ORDERED: MYLICON,MYLANTA80 MG GT (11:22)
[2016-10-21] MEDS ORDERED: SANTYL30 GM TP (11:22)
[2016-10-21] MEDS ORDERED: NOVOLOG PE100 UNITS/ SC (11:22)
[2016-10-21] MEDS ORDERED: Tylenol GT (11:22)
[2016-10-21 11:24] LABS: POINT-OF-CARE METER ID UU14174225
[2016-10-21 15:16] VITALS: BP 176/77
[2016-10-21 16:26] LABS: POINT-OF-CARE METER ID UU14174225
== END 2016-10-21 16:54 | DRG 3 ==
LOC: EME → EDBD 18:50 → EME 18:50 → EDOF 22:42 → 4WEST 22:42 → ENRESERV 10-04 04:46 → CANRESERV 10-04 04:46 → 4WEST 10-14 16:42 → CANRESERV 10-14 16:43 → ENRESERV 10-14 16:43 → CANRESERV 10-17 22:15 → ENRESERV 10-17 22:15 → 5SOUTH 10-18 00:51
PROVIDERS: Emergency Medicine; Family Medicine; Hospitalist; Internal Medicine; Internal Medicine Cardiovascular Disease; Internal Medicine Critical Care Medicine; Internal Medicine Nephrology; Internal Medicine Pulmonary Disease; Student in an Organized Health Care Education/Training Program; Surgery
DX: A41.02 Sepsis due to Methicillin resistant Staphylococcus aureus (principal); A41.89 Other specified sepsis; R65.21 Severe sepsis with septic shock; J96.21 Acute and chronic respiratory failure with hypoxia; N17.0 Acute kidney failure with tubular necrosis; J15.212 Pneumonia due to Methicillin resistant Staphylococcus aureus; J85.1 Abscess of lung with pneumonia; I33.0 Acute and subacute infective endocarditis; B95.62 Methicillin resistant Staphylococcus aureus infection as the cause of diseases classified elsewhere; E13.11 Other specified diabetes mellitus with ketoacidosis with coma; I21.4 Non-ST elevation (NSTEMI) myocardial infarction; T81.4XXA Infection following a procedure, initial encounter; N12 Tubulo-interstitial nephritis, not specified as acute or chronic; N15.1 Renal and perinephric abscess; B37.49 Other urogenital candidiasis; B96.89 Other specified bacterial agents as the cause of diseases classified elsewhere; B96.1 Klebsiella pneumoniae [K. pneumoniae] as the cause of diseases classified elsewhere; B96.20 Unspecified Escherichia coli [E. coli] as the cause of diseases classified elsewhere; E11.43 Type 2 diabetes mellitus with diabetic autonomic (poly)neuropathy; K31.84 Gastroparesis; I48.0 Paroxysmal atrial fibrillation; J93.0 Spontaneous tension pneumothorax; E11.52 Type 2 diabetes mellitus with diabetic peripheral angiopathy with gangrene; E87.5 Hyperkalemia; E87.6 Hypokalemia; E11.01 Type 2 diabetes mellitus with hyperosmolarity with coma; G93.41 Metabolic encephalopathy; G93.1 Anoxic brain damage, not elsewhere classified; M62.82 Rhabdomyolysis; F02.80 Dementia in other diseases classified elsewhere, unspecified severity, without behavioral disturbance, psychotic disturbance, mood disturbance, and anxiety; Z99.11 Dependence on respirator [ventilator] status; D72.819 Decreased white blood cell count, unspecified; D50.8 Other iron deficiency anemias; D69.6 Thrombocytopenia, unspecified; E11.65 Type 2 diabetes mellitus with hyperglycemia; I26.90 Septic pulmonary embolism without acute cor pulmonale; I76 Septic arterial embolism; I74.3 Embolism and thrombosis of arteries of the lower extremities; D73.3 Abscess of spleen; K29.70 Gastritis, unspecified, without bleeding; E87.70 Fluid overload, unspecified; E11.319 Type 2 diabetes mellitus with unspecified diabetic retinopathy without macular edema; E11.21 Type 2 diabetes mellitus with diabetic nephropathy; L89.153 Pressure ulcer of sacral region, stage 3; L89.811 Pressure ulcer of head, stage 1; L89.892 Pressure ulcer of other site, stage 2; L89.810 Pressure ulcer of head, unstageable; N48.5 Ulcer of penis; B96.5 Pseudomonas (aeruginosa) (mallei) (pseudomallei) as the cause of diseases classified elsewhere; F05 Delirium due to known physiological condition; R18.8 Other ascites; B37.2 Candidiasis of skin and nail; R13.10 Dysphagia, unspecified; I12.9 Hypertensive chronic kidney disease with stage 1 through stage 4 chronic kidney disease, or unspecified chronic kidney disease; N18.9 Chronic kidney disease, unspecified; I25.10 Atherosclerotic heart disease of native coronary artery without angina pectoris; L30.9 Dermatitis, unspecified; N28.0 Ischemia and infarction of kidney; N28.89 Other specified disorders of kidney and ureter; K56.0 Paralytic ileus; K59.00 Constipation, unspecified; K66.8 Other specified disorders of peritoneum; R19.7 Diarrhea, unspecified; G89.29 Other chronic pain; M79.7 Fibromyalgia; F31.9 Bipolar disorder, unspecified; F41.9 Anxiety disorder, unspecified; F17.210 Nicotine dependence, cigarettes, uncomplicated; H54.8 Legal blindness, as defined in USA; F10.10 Alcohol abuse, uncomplicated; F14.10 Cocaine abuse, uncomplicated; F19.10 Other psychoactive substance abuse, uncomplicated; Z59.0 Homelessness; Z79.4 Long term (current) use of insulin; Z91.19 Patient's noncompliance with other medical treatment and regimen; Z78.1 Physical restraint status; Z75.1 Person awaiting admission to adequate facility elsewhere
CPT/HCPCS: 36600; 36620; 49406; 70450; 71010; 71250; 72170; 73020; 73560; 74000; 74150; 74176; 74178; 74230; 76705; 76770; 80047; 80048; 80048 91; 80053; 80069; 80076; 80202; 80306 90; 81003; 82150; 82248; 82272; 82550; 82803; 82948; 83036; 83540; 83605; 83690; 83735; 83930; 83935; 84100; 84300; 84466; 84484; 84999; 85014; 85018; 85025; 85027; 85610; 85730; 86021 90; 86038; 86160; 86850; 86900; 86901; 86920; 87040; 87070; 87075; 87076; 87077; 87086; 87106; 87147; 87185; 87186; 87205; 87493; 87641; 87801; 92526 GN; 92610 GN; 92611 GN; 93005; 93306; 93308; 93312; 93925; 94002; 94003; 94640; 94640 76; 94760; 94799; 95819; 97530 GO; 97530 GP; 99202; 99281; 99285; C1729; C1753; C1769; C9113; G0480; J0610; J0690; J0692; J0696; J0881; J1250; J1450; J1644; J1720; J1815; J1940; J2020; J2060; J2250; J2270; J2310; J2405; J2704; J2765; J3010; J3370; J3475; J3480; J7030; J7040; J7050; J7070; J7120; P9016; P9045; P9047; S0028; S0030

== ENCOUNTER 2016-11-21 14:26 | Inpatient (IN) | payer OTHER ==
[~2016-11-21] VITALS: Ht 182.9 cm; Wt 72.8 kg
[~2016-11-21 14:26] MED LIST changes: +AMLODIPINE BESY10 MG GT; +ASPIRIN81 M2 GT; +DUONEB 2.5-0.5 M3 ML AEROSOL; +HYDROCODON-ACE1 EAC7 GT; +LOPRESSOR50 MG GT; +MYLICON,MYLANTA80 MG GT; +QUETIAPINE FUM100 MG GT; +SANTYL30 GM TP; +TAMSULOSIN HCL0.4 MG PO; +Tylenol GT
[2016-11-21 15:18] LABS: BASOPHIL COUNT 0.1 K/uL (0-0.1); EOSINOPHIL (%) 6.5 % (0-5); HEMATOCRIT 30.7 % (38.0-50.0); IMMATURE GRANULOCYTE (%) 0.7 % (0.0-0.7); IMMATURE GRANULOCYTE COUNT 0.1 K/uL; INSTRUMENT ABS NEUTROPHIL CT 11.1 K/uL; LYMPHOCYTE COUNT 1.6 K/uL (1.0-2.8); MCH 27.3 PG (29.0-34.0); MCHC 32.2 G/DL (30.0-36.0); MCV 84.6 FL (86-99); MEAN PLAT.VOLUME 9.5 uM^3 (9.0-12.4); MONOCYTE (%) 7.6 % (3-12); MONOCYTE COUNT 1.1 K/uL (0-0.8); NEUTROPHIL (%) 73.9 % (45-76); NEUTROPHIL COUNT 11.1 K/uL (1.8-6.4); PLATELET COUNT 372 K/uL (156-360); RBC DIS.WIDTH-CV 14.1 % (11.8-14.6); RBC DIS.WIDTH-SD 43.1 % (39-53); RED BLOOD COUNT 3.63 M/uL (4.00-5.50)
[2016-11-21 15:27] LABS: CHLORIDE 99 mEq/L (99-109); POTASSIUM 4.6 mEq/L (3.7-5.4); SODIUM 137 mEq/L (136-147)
[2016-11-21 15:29] LABS: GLUCOSE 208 mg/dL (70-99)
[2016-11-21 15:30] LABS: ANION GAP 11 MEQ/L (2-14)
[2016-11-21 15:31] LABS: TOTAL BILIRUBIN 0.3 mg/dL (0.0-1.0)
[2016-11-21 15:32] LABS: ALKALINE PHOSPHATASE 103 IU/L (3-129)
[2016-11-21 15:33] LABS: GFR ESTIMATE (CALCULATED) > 59 mL/min/
[2016-11-21 15:34] LABS: UREA NITROGEN (BUN) 24 mg/dL (9-23)
[2016-11-21] MEDS ORDERED: FLOMAX0.4 MG PO (20:58)
[2016-11-21] MEDS ORDERED: AMLODIPINE BESY10 MG PO (20:58)
[2016-11-21] MEDS ORDERED: LOPRESSOR50 MG PO (20:58)
[2016-11-21] MEDS ORDERED: SEROQUEL100 MG PO (20:59)
[2016-11-21] MEDS ORDERED: MYLICON,MYLANTA80 MG PO (20:59)
[2016-11-21] MEDS ORDERED: LO-DOSE ASPIRIN81 M1 PO (20:59)
[2016-11-21 21:00] VITALS: BP 159/84
[2016-11-21] MEDS ORDERED: MEN'S ONE DAIL1 EACH PO (21:00)
[2016-11-21] MEDS ORDERED: TYLENOL REGULA325 MG PO (21:01)
[2016-11-21] MEDS ORDERED: LEVEMIR FL100 UNIT/1 SC (21:01)
[2016-11-21] MEDS ORDERED: DULCOLAX10 MG PR (21:02)
[2016-11-21] MEDS ORDERED: NORCO 5/3251 TABLET PO (21:02)
[2016-11-21] MEDS ORDERED: PHILLIPS'400 MG/5 M PO (21:02)
[2016-11-21] MEDS ORDERED: FLEET ENEMA-AD118 ML PR (21:03)
[2016-11-22 02:01] LABS: METH RESISTANT S AUREUS PCR POSITIVE (NEGATIVE)
[2016-11-22 02:04] LABS: PROBE CHECK PASS
[2016-11-22 06:21] LABS: POINT-OF-CARE METER ID UU14188577
[2016-11-22 06:31] LABS: HEMATOCRIT 28.1 % (38.0-50.0); MCH 27.8 PG (29.0-34.0); MCHC 33.1 G/DL (30.0-36.0); MCV 84.1 FL (86-99); MEAN PLAT.VOLUME 9.4 uM^3 (9.0-12.4); PLATELET COUNT 320 K/uL (156-360); RBC DIS.WIDTH-CV 13.9 % (11.8-14.6); RBC DIS.WIDTH-SD 42.8 % (39-53); RED BLOOD COUNT 3.34 M/uL (4.00-5.50); WHITE BLOOD COUNT 12.5 K/uL (4.1-10.2)
[2016-11-22 06:56] LABS: ALKALINE PHOSPHATASE 92 IU/L (3-129); ANION GAP 8 MEQ/L (2-14); CHLORIDE 102 MEQ/L (99-109); GFR ESTIMATE (CALCULATED) > 59 mL/min/; GLUCOSE 151 mg/dL (70-99); POTASSIUM 4.6 MEQ/L (3.7-5.4); SAMPLE HEMOLYSIS CHECK 0; SAMPLE ICTERIC CHECK 0; SAMPLE LIPEMIA CHECK 0; SODIUM 136 MEQ/L (136-147); TOTAL BILIRUBIN 0.3 MG/DL (0.0-1.0); UREA NITROGEN (BUN) 22 mg/dL (9-23)
[2016-11-22 07:56] VITALS: BP 124/75
[2016-11-22 08:11] LABS: C-REACTIVE PROTEIN 92.1 MG/L (0-10)
[2016-11-22 09:32] LABS: ERTH.SED.RATE 87 MM/HR (0-15)
[2016-11-22 12:12] LABS: ADD MIUA? YES; BILIRUBIN NEGATIVE; BLOOD MODERATE; COLOR YELLOW ((YELLOW)); GLUCOSE (STRIP) NEGATIVE; KETONES NEGATIVE; LEUKOCYTES LARGE; NITRITE NEGATIVE; PROTEIN (STRIP) NEGATIVE; SPECIFIC GRAVITY 1.005 (1.000-1.030); UROBILINOGEN 0.2 MG/DL (0.2-1.0)
[2016-11-22 12:37] LABS: BACTERIA 2+ /HPF; EPITHELIAL CELLS RARE /HPF; MUCUS 1+ /LPF; RED BLOOD CELLS 15-20 /HPF (0-5); UCUL ADDED? YES; WHITE BLOOD CELLS TNTC /HPF (0-5)
[2016-11-22 12:38] LABS: CASTS NONE SEEN /LPF; CRYSTALS NONE SEEN
[2016-11-22 12:39] LABS: AMPHETAMINES QUANT VALUE 0 NG/ML; BARBITUATES QUANT VALUE 0 NG/ML; BENZODIAZEPINES QUANT VALUE 0 NG/ML; BENZODIAZEPINES, URINE SCREEN Negative (200 ng/mL); MARIJUANA QUANT VALUE 0 NG/ML; OPIATES QUANTITATIVE VALUE 0 NG/ML; PHENCYCLIDINE QUANT VALUE 0 NG/ML
[2016-11-22 17:24] LABS: POINT-OF-CARE METER ID UU14188577
[2016-11-22 19:22] VITALS: BP 116/69
[2016-11-22 21:30] LABS: POINT-OF-CARE METER ID UU14117124
[2016-11-22 23:33] VITALS: BP 146/75
[2016-11-23 04:39] VITALS: BP 108/55
[2016-11-23 07:03] LABS: HEMATOCRIT 30.4 % (38.0-50.0); MCH 27.1 PG (29.0-34.0); MCHC 31.9 G/DL (30.0-36.0); MCV 84.9 FL (86-99); MEAN PLAT.VOLUME 9.4 uM^3 (9.0-12.4); PLATELET COUNT 321 K/uL (156-360); RBC DIS.WIDTH-CV 13.9 % (11.8-14.6); RBC DIS.WIDTH-SD 43.1 % (39-53); RED BLOOD COUNT 3.58 M/uL (4.00-5.50); WHITE BLOOD COUNT 10.3 K/uL (4.1-10.2)
[2016-11-23 07:05] LABS: POINT-OF-CARE METER ID UU14208753
[2016-11-23 07:29] LABS: ANION GAP 10 MEQ/L (2-14); CHLORIDE 105 MEQ/L (99-109); GFR ESTIMATE (CALCULATED) > 59 mL/min/; POTASSIUM 4.5 MEQ/L (3.7-5.4); SAMPLE HEMOLYSIS CHECK 0; SAMPLE ICTERIC CHECK 0; SAMPLE LIPEMIA CHECK 0; SODIUM 140 MEQ/L (136-147); UREA NITROGEN (BUN) 26 mg/dL (9-23)
[2016-11-23 07:31] LABS: GLUCOSE 43 mg/dL (70-99)
[2016-11-23 07:53] VITALS: BP 117/69
[2016-11-23 11:20] VITALS: BP 126/56
[2016-11-23 12:23] LABS: POINT-OF-CARE METER ID UU14117124
[2016-11-23 16:43] VITALS: BP 140/80
[2016-11-23 17:39] LABS: POINT-OF-CARE METER ID UU14117124
[2016-11-23 19:58] VITALS: BP 119/59
[2016-11-23 23:38] VITALS: BP 129/79
[2016-11-24 06:38] LABS: POINT-OF-CARE METER ID UU14117124
[2016-11-24 08:00] VITALS: BP 132/82
[2016-11-24 11:44] LABS: POINT-OF-CARE METER ID UU14208753
[2016-11-24 11:54] VITALS: BP 108/72
[2016-11-24] MEDS ORDERED: DIFLUCAN200 MG PO (14:45)
[2016-11-24 15:55] VITALS: BP 100/64
[2016-11-24 16:33] LABS: POINT-OF-CARE METER ID UU14208753
== END 2016-11-24 17:20 | DRG 300 ==
LOC: EME 14:26 → EDOF 19:35 → 3EAST 19:35 → CANRESERV 19:40 → ENRESERV 19:40 → CANRESERV 19:50 → ENRESERV 19:50 → 3EAST 21:06
PROVIDERS: Emergency Medicine; Internal Medicine; Pediatrics; Physician Assistant
DX: E11.52 Type 2 diabetes mellitus with diabetic peripheral angiopathy with gangrene (principal); E87.1 Hypo-osmolality and hyponatremia; L89.150 Pressure ulcer of sacral region, unstageable; L89.620 Pressure ulcer of left heel, unstageable; L89.610 Pressure ulcer of right heel, unstageable; B37.49 Other urogenital candidiasis; R26.2 Difficulty in walking, not elsewhere classified; R41.0 Disorientation, unspecified; F31.9 Bipolar disorder, unspecified; F41.9 Anxiety disorder, unspecified; I10 Essential (primary) hypertension; E11.39 Type 2 diabetes mellitus with other diabetic ophthalmic complication; H54.8 Legal blindness, as defined in USA; M79.7 Fibromyalgia; Z66 Do not resuscitate; F17.200 Nicotine dependence, unspecified, uncomplicated; Z93.1 Gastrostomy status; Z79.4 Long term (current) use of insulin; Z79.82 Long term (current) use of aspirin; Z86.14 Personal history of Methicillin resistant Staphylococcus aureus infection
CPT/HCPCS: 36415; 73630; 80048; 80053; 80306 90; 81003; 82948; 83605; 85025; 85025 91; 85027; 85651; 86140; 87040; 87081; 87086; 87106; 87641; 99202; 99281; 99285; C1753; J0696; J1650; J1815; J2543; J3370; J7030; J7050